=== PATIENT | male | born 1985 | race Caucasian/White ===

== ENCOUNTER 2020-07-16 06:45 | Day surgery (SDC) | payer OTHER ==
[2020-07-15 07:52] VITALS: BMI 32.9
--- NOTE | 2020-07-16 08:48 | HP ---
CHIEF COMPLAINT: Depression PCP: Kayode Alonso Primary Psychiatrist: Shaw Rojas HISTORY OF PRESENT ILLNESS: 35 year-old with a PMH significant for depression and anxiety, appears today for his first ECT treatment. Recent Events: * none PAST MEDICAL HISTORY: Depression Anxiety PAST SURGICAL HISTORY: None Social History: lives in [place], , lives with parents and his daughter; u nemployed; attends job training Smoking: never Alcohol: no Drugs: no Family history: mother 72 a&w; father 68 A&w Allergies No Known Allergies Allergy (Verified 07/16/20 07:50) HOME MEDICATIONS: Home Medications Medication Instructions Recorded Gabapentin [Neurontin] 100 mg PO DAILY 07/15/20 Hydroxyzine HCl 50 mg PO HS 07/15/20 Risperidone [Risperdal] 0.5 mg PO DAILY 07/15/20 REVIEW OF SYSTEMS CONSTITUTIONAL: Absent: fever, chills, diaphoresis, generalized weakness, malaise, loss of appetite, weight change HEENT: Absent: rhinorrhea, nasal congestion, throat pain, throat swelling, difficulty swallowing, mouth swelling, ear pain, eye pain, visual changes CARDIOVASCULAR: Absent: chest pain, syncope, palpitations, irregular heart rate, lightheadedness, peripheral edema RESPIRATORY: Absent: cough, shortness of breath, dyspnea with exertion, orthopnea, wheezing, stridor, hemoptysis GASTROINTESTINAL: Absent: abdominal pain, abdominal distension, nausea, vomiting, diarrhea, constipation, melena, hematochezia GENITOURINARY: Absent: dysuria, frequency, urgency, hesitancy, hematuria, flank pain, genital pain MUSCULOSKELETAL: Absent: myalgia, arthralgia, joint swelling, back pain, neck pain SKIN: Absent: rash, itching, pallor HEMATOLOGIC/IMMUNOLOGIC: Absent: easy bleeding, easy bruising, lymphadenopathy, frequent infections ENDOCRINE: Absent: unexplained weight gain, unexplained weight loss, heat intolerance, cold intolerance NEUROLOGIC: Absent: headache, focal weakness or paresthesias, dizziness, unsteady gait, seizure, mental status changes, bladder or bowel incontinence PHYSICAL EXAMINATION Vital Signs - 24 hr 07/16/20 07:51 Temperature 98.6 F Pulse Rate 80 Respiratory 16 Rate Blood Pressure 122/77 O2 Sat by Pulse 96 Oximetry (%) GENERAL: Awake, alert, and fully oriented, in no acute distress. HEAD: Normal with no signs of trauma. EYES: Pupils equal, round and reactive to light, sclera anicteric, conjunctiva clear. LUNGS: Breath sounds equal, clear to auscultation bilaterally. No wheezes, and no crackles. No accessory muscle use. HEART: Regular rate and rhythm, normal S1 and S2 ABDOMEN: Soft, nontender, not distended MUSCULOSKELETAL: Normal range of motion at all joints. No bony deformities or tenderness. No CVA tenderness. UPPER EXTREMITIES: 2+ pulses, warm, well-perfused. No cyanosis. No clubbing. No peripheral edema. LOWER EXTREMITIES: 2+ pulses, warm, well-perfused. No calf tenderness. No peripheral edema. NEUROLOGICAL: Cranial nerves II-XII intact. Normal speech. ASSESSMENT/PLAN: 35 year-old male with a PMH significant for depression and anxiety, appears today for ECT treatment. Cardiac --no cardiac history --Revised Cardiac Risk Index for Pre-Operative Risk: 0 points, 0.4% risk of major cardiac event Pulmonary --no pulmonary history Neurological --no neurological or neurosurgical history; no history of trauma Anesthesia --no reported problems with anesthesia ECT is a low risk procedure. The relative benefits of the planned procedure outweigh the relative risks for this patient at this time. Visit type - Emergency Visit Emergency Visit: No - New Patient This patient is new to me today: Yes Date on this admission: 07/16/20 - Critical Care Critical Care patient: No
[2020-07-16] MEDS ORDERED: KETAMINE HCL 500 MG/10 ML VIAL ONE (09:27)
[2020-07-16] MEDS ORDERED: KETOROLAC TROMETHAMINE 30 MG/1 ML VIAL ONE (09:34)
[2020-07-16] MEDS ORDERED: ONDANSETRON 4 MG/2 ML VIAL ONE (09:34)
[2020-07-16] MEDS ORDERED: SUCCINYLCHOLINE CHLORIDE 200 MG/10 ML SYRINGE ONE (09:34)
[2020-07-16] MEDS ORDERED: ACETAMINOPHEN 325 MG TABLET (FP) ONE (11:12)
[2020-07-16 11:18] VITALS: TEMP 98.2
[2020-07-16 11:20] VITALS: BP 130/80; PULSE 77
== END 2020-07-16 11:30 | disposition home or self-care (01) ==
LOC: FECT 06:45
PROVIDERS: ATTEND Psychiatry & Neurology Psychiatry
PROC: GZB4ZZZ Other Electroconvulsive Therapy (ICD-10-PCS; principal; 2020-07-16 08:30)
DX: F32.9 Major depressive disorder, single episode, unspecified (principal)
CPT/HCPCS: 90870; 94760; U0003

== ENCOUNTER 2020-07-20 06:34 | Day surgery (SDC) | payer OTHER ==
[2020-07-15 08:36] VITALS: BMI 32.9
[2020-07-20] MEDS ORDERED: KETAMINE HCL 500 MG/10 ML VIAL ONE (08:44)
[2020-07-20 09:55] VITALS: TEMP 98.5
[2020-07-20 11:04] VITALS: BP 121/75; PULSE 80
== END 2020-07-20 10:35 | disposition home or self-care (01) ==
LOC: FECT 06:34
PROVIDERS: ATTEND Psychiatry & Neurology Psychiatry
PROC: GZB4ZZZ Other Electroconvulsive Therapy (ICD-10-PCS; principal; 2020-07-20 08:30)
DX: F33.2 Major depressive disorder, recurrent severe without psychotic features (principal)
CPT/HCPCS: 90870; 94760; U0003

== ENCOUNTER 2020-07-23 06:39 | Day surgery (SDC) | payer OTHER ==
[2020-07-15 08:41] VITALS: BMI 32.9
[2020-07-23] MEDS ORDERED: PROPOFOL 20 ML ONE (06:52)
[2020-07-23] MEDS ORDERED: SUCCINYLCHOLINE CHLORIDE 200 MG/10 ML SYRINGE ONE (06:53)
[2020-07-23] MEDS ORDERED: ONDANSETRON 4 MG/2 ML VIAL IVPUSH PRN (07:06)
[2020-07-23] MEDS ORDERED: ACETAMINOPHEN 1000 MG/100 ML VIAL (NON FORMULARY) IVPB ONE (07:08)
[2020-07-23] MEDS ORDERED: LACTATED RINGERS SOLUTION 1,000 ML IV SCH (07:15)
[2020-07-23] MEDS ORDERED: KETAMINE HCL 500 MG/10 ML VIAL ONE (07:48)
[2020-07-23] MEDS ORDERED: ACETAMINOPHEN INJECTION 100 ML IVPB ONE (08:30)
[2020-07-23 09:10] VITALS: TEMP 99.4
[2020-07-23 09:51] VITALS: BP 118/72; PULSE 82
== END 2020-07-23 09:54 | disposition home or self-care (01) ==
LOC: FECT 06:39
PROVIDERS: ATTEND Psychiatry & Neurology Psychiatry
PROC: GZB4ZZZ Other Electroconvulsive Therapy (ICD-10-PCS; principal; 2020-07-23 08:00)
DX: F32.9 Major depressive disorder, single episode, unspecified (principal)
CPT/HCPCS: 90870; 94760; J0131

== ENCOUNTER 2020-07-24 06:12 | Day surgery (SDC) | payer OTHER ==
[2020-07-23 16:19] VITALS: BMI 32.9
[2020-07-24] MEDS ORDERED: KETOROLAC TROMETHAMINE 30 MG/1 ML VIAL ONE (07:46)
[2020-07-24] MEDS ORDERED: ONDANSETRON 4 MG/2 ML VIAL ONE (07:46)
[2020-07-24] MEDS ORDERED: SUCCINYLCHOLINE CHLORIDE 200 MG/10 ML SYRINGE ONE (07:46)
[2020-07-24] MEDS ORDERED: KETAMINE HCL 500 MG/10 ML VIAL ONE (07:46)
[2020-07-24] MEDS ORDERED: DEXAMETHASONE SOD PHOSPHATE 4 MG/1 ML VIAL ONE (07:46)
[2020-07-24] MEDS ORDERED: PROPOFOL 20 ML ONE (07:46)
[2020-07-24] MEDS ORDERED: ACETAMINOPHEN INJECTION 100 ML IVPB ONE (08:04)
[2020-07-24] MEDS ORDERED: ACETAMINOPHEN 1000 MG/100 ML VIAL (NON FORMULARY) IVPB ONE ×2 (08:04→11:20)
[2020-07-24 08:39] VITALS: TEMP 98.1
[2020-07-24 09:14] VITALS: BP 122/73; PULSE 74
[2020-07-24] MEDS ORDERED: PROMETHAZINE HCL 25 MG/1 ML VIAL IVPUSH PRN (11:20)
[2020-07-24] MEDS ORDERED: ONDANSETRON 4 MG/2 ML VIAL IVPUSH PRN (11:20)
== END 2020-07-24 09:20 | disposition home or self-care (01) ==
LOC: FECT 06:12
PROVIDERS: ATTEND Psychiatry & Neurology Psychiatry
PROC: GZB4ZZZ Other Electroconvulsive Therapy (ICD-10-PCS; principal; 2020-07-24 09:00)
DX: F32.9 Major depressive disorder, single episode, unspecified (principal)
CPT/HCPCS: 90870; 94760; J0131; U0003

== ENCOUNTER 2020-07-27 06:21 | Day surgery (SDC) | payer OTHER ==
[2020-07-16 08:07] VITALS: BMI 32.9
[2020-07-27] MEDS ORDERED: KETAMINE HCL 500 MG/10 ML VIAL ONE (07:51)
[2020-07-27] MEDS ORDERED: oxyCODONE HCL 5 MG TABLET PO PRN (08:14)
[2020-07-27] MEDS ORDERED: ACETAMINOPHEN 1000 MG/100 ML VIAL (NON FORMULARY) IVPB ONE (08:14)
[2020-07-27] MEDS ORDERED: ONDANSETRON 4 MG/2 ML VIAL IVPUSH PRN (08:14)
[2020-07-27] MEDS ORDERED: LACTATED RINGERS SOLUTION 1,000 ML IV SCH (08:15)
[2020-07-27] MEDS ORDERED: ACETAMINOPHEN INJECTION 100 ML IVPB ONE (08:18)
[2020-07-27] MEDS ORDERED: SUCCINYLCHOLINE CHLORIDE 200 MG/10 ML SYRINGE ONE (08:21)
[2020-07-27] MEDS ORDERED: ONDANSETRON 4 MG/2 ML VIAL ONE ×2 (08:28→08:38)
[2020-07-27] MEDS ORDERED: PROPOFOL 20 ML ONE (08:38)
[2020-07-27] MEDS ORDERED: DEXAMETHASONE SOD PHOSPHATE 4 MG/1 ML VIAL ONE (08:38)
[2020-07-27] MEDS ORDERED: KETOROLAC TROMETHAMINE 30 MG/1 ML VIAL ONE (08:38)
[2020-07-27 09:21] VITALS: TEMP 98
[2020-07-27 10:25] VITALS: BP 110/62; PULSE 74
== END 2020-07-27 10:10 | disposition home or self-care (01) ==
LOC: FECT 06:21
PROVIDERS: ATTEND Psychiatry & Neurology Psychiatry
PROC: GZB4ZZZ Other Electroconvulsive Therapy (ICD-10-PCS; principal; 2020-07-27 07:00)
DX: F33.2 Major depressive disorder, recurrent severe without psychotic features (principal)
CPT/HCPCS: 90870; 94760; J0131; U0003

== ENCOUNTER 2020-07-30 07:57 | Day surgery (SDC) | payer MEDICARE, OTHER ==
[2020-07-21 09:02] VITALS: BMI 32.9
[2020-07-30] MEDS ORDERED: KETAMINE HCL 500 MG/10 ML VIAL ONE (11:22)
[2020-07-30 12:34] VITALS: TEMP 98.5
[2020-07-30 14:01] VITALS: BP 120/84; PULSE 89
== END 2020-07-30 12:50 | disposition home or self-care (01) ==
LOC: FECT 07:57
PROVIDERS: ATTEND Psychiatry & Neurology Psychiatry
PROC: GZB4ZZZ Other Electroconvulsive Therapy (ICD-10-PCS; principal; 2020-07-30 07:30)
DX: F32.9 Major depressive disorder, single episode, unspecified (principal)
CPT/HCPCS: 90870; 94760

== ENCOUNTER 2020-07-31 09:29 | Day surgery (SDC) | payer MEDICARE, OTHER ==
[2020-07-28 08:42] VITALS: BMI 32.9
[2020-07-31] MEDS ORDERED: KETAMINE HCL 500 MG/10 ML VIAL ONE (09:57)
[2020-07-31] MEDS ORDERED: ONDANSETRON 4 MG/2 ML VIAL ONE (10:02)
[2020-07-31] MEDS ORDERED: KETOROLAC TROMETHAMINE 30 MG/1 ML VIAL ONE (10:02)
[2020-07-31] MEDS ORDERED: PROPOFOL 20 ML ONE (10:02)
[2020-07-31 11:04] VITALS: TEMP 98.4
[2020-07-31 11:29] VITALS: BP 131/88; PULSE 86
== END 2020-07-31 11:20 | disposition home or self-care (01) ==
LOC: FECT 09:29
PROVIDERS: ATTEND Psychiatry & Neurology Psychiatry
PROC: GZB4ZZZ Other Electroconvulsive Therapy (ICD-10-PCS; principal; 2020-07-31 10:00)
DX: F32.9 Major depressive disorder, single episode, unspecified (principal)
CPT/HCPCS: 90870; 94760; U0003

== ENCOUNTER 2020-08-04 08:08 | Day surgery (SDC) | payer MEDICARE, OTHER ==
[2020-08-04 09:03] VITALS: BMI 32.9
[2020-08-04] MEDS ORDERED: KETAMINE HCL 500 MG/10 ML VIAL ONE (10:26)
[2020-08-04] MEDS ORDERED: PROPOFOL 20 ML ONE ×2 (10:29→10:46)
[2020-08-04] MEDS ORDERED: SUCCINYLCHOLINE CHLORIDE 200 MG/10 ML SYRINGE ONE ×2 (10:30→10:50)
[2020-08-04 11:33] VITALS: TEMP 98.5
[2020-08-04 11:45] VITALS: BP 123/82; PULSE 83
== END 2020-08-04 11:50 | disposition home or self-care (01) ==
LOC: FECT 08:08
PROVIDERS: ATTEND Psychiatry & Neurology Psychiatry
PROC: GZB4ZZZ Other Electroconvulsive Therapy (ICD-10-PCS; principal; 2020-08-04 11:30)
DX: F32.9 Major depressive disorder, single episode, unspecified (principal)
CPT/HCPCS: 90870; 94760; U0003

== ENCOUNTER 2020-08-06 05:41 | Day surgery (SDC) | payer MEDICARE, OTHER ==
[2020-07-28 11:25] VITALS: BMI 32.9
[2020-08-06] MEDS ORDERED: KETAMINE HCL 500 MG/10 ML VIAL ONE (07:02)
[2020-08-06] MEDS ORDERED: PROPOFOL 20 ML ONE (07:08)
[2020-08-06] MEDS ORDERED: SUCCINYLCHOLINE CHLORIDE 200 MG/10 ML SYRINGE ONE (07:08)
[2020-08-06 08:00] VITALS: TEMP 97.8
[2020-08-06 08:23] VITALS: BP 126/78; PULSE 76
== END 2020-08-06 09:45 | disposition home or self-care (01) ==
LOC: FECT 05:41
PROVIDERS: ATTEND Psychiatry & Neurology Psychiatry
PROC: GZB4ZZZ Other Electroconvulsive Therapy (ICD-10-PCS; principal; 2020-08-06 09:30)
DX: F32.9 Major depressive disorder, single episode, unspecified (principal)
CPT/HCPCS: 90870; 94760; U0003

== ENCOUNTER 2020-08-10 09:29 | Day surgery (SDC) | payer OTHER ==
[2020-07-30 08:55] VITALS: BMI 32.9
[2020-08-10 10:11] VITALS: TEMP 98.1
--- OUTSIDE RECORDS SUMMARY | 2020-08-10 10:21 | XMS ---
:1985 Author Organization [facility] Care Team Providers Name Role Phone FRANCISCO CASTELLON MD Unavailable Unavailable KAYODESELIN SHANNON Unavailable KAYODESELIN SHANNON Unavailable KAYODESELIN SHANNON Unavailable MORALES Unavailable Unavailable NURSE Unavailable Unavailable BONNAH Unavailable Unavailable RIZQALLA Unavailable Unavailable Dahlia JIMENES Unavailable Unavailable Bel Clay MS PAMansiC Unavailable Unavailable Bel Clay MS, PAMansiC Unavailable Unavailable MO FSIH MD Unavailable Unavailable IVANNA DEL CID MD Unavailable Unavailable Re-disclosure Warning The records that you are about to access may contain information from federally- assisted alcohol or drug abuse programs. If such information is present, then the following federally mandated warning applies: This information has been disclosed to you from records protected by federal confidentiality rules (42 CFR part 2). The federal rules prohibit you from making any further disclosure of this information unless further disclosure is expressly permitted by the written consent of the person to whom it pertains or as otherwise permitted by 42 CFR part 2. A general authorization for the release of medical or other information is NOT sufficient for this purpose. The Federal rules restrict any use of the information to criminally investigate or prosecute any alcohol or drug abuse patient.The records that you are about to access may contain highly sensitive health information, the redisclosure of which is protected by Article 27-F of the [facility] Public Health law. If you continue you may haveaccess to information: Regarding HIV / AIDS; Provided by facilities licensed or operated by the [facility] Office of Mental Health; or Provided by the [facility] Office for People With Developmental Disabilities. If such information is present, then the following [facility] mandated warning applies: This information has been disclosed to you from confidential records which are protected by state law. State law prohibits you from making any further disclosure of this information without the specific written consent of the person to whom it pertains, or as otherwise permitted by law. Any unauthorized further disclosure in violation of state law may result in a fine or half-way sentence or both. A general authorization for the release of medical or other information is NOT sufficient authorization for further disclosure. Allergies and Adverse Reactions Type Description Substance Reaction Status Data Source(s ) Drug allergy No Known Allergies No Known [facility] Allergies No Known Allergies No Known Allergies No Known eCW1 ([facility]) No Known Allergies No Known Allergies No Known eCW1 ([facility]) No Known Allergies No Known Allergies No Known eCW1 ([facility]) No Known Allergies No Known Allergies No Known eCW1 ([facility]) No Known Allergies No Known Allergies No Known eCW1 ([facility]) No Known Allergies No Known Allergies No Known eCW2 ([facility]) No Information No Information No Information eC W2 ([facility]) No Known Allergies No Known Allergies No Known eCW1 ([facility]) No Information No Information No Information eC W2 ([facility]) No Known Allergies No Known Allergies No Known eCW1 ([facility]) No Information No Information No Information eC W1 ([facility]) No Information No Information No Information eC W1 ([facility]) No Information No Information No Information eC W1 ([facility]) No Information No Information No Information eC W1 ([facility]) No Known Allergies No Known Allergies No Known eCW1 ([facility]) No Information No Information No Information eC W1 ([facility]) No Information No Information No Information eC W1 ([facility]) No Information No Information No Information eC W1 ([facility]) No Information No Information No Information eC W1 ([facility]) No Known Allergies No Known Allergies No Known eCW1 ([facility]) No Information No Information No Information eC W2 ([facility]) No Information No Information No Information eC W2 ([facility]) No Information No Information No Information eC W2 ([facility]) No Information No Information No Information eC W2 ([facility]) No Information No Information No Information eC W2 ([facility]) No Known Allergies No Known Allergies No Known eCW2 ([facility]) No Information No Information No Information eC W2 ([facility]) No Information No Information No Information eC W2 ([facility]) No Information No Information No Information eC W2 ([facility]) No Information No Information No Information eC W2 ([facility]) No Information No Information No Information eC W2 ([facility]) No Known Allergies No Known Allergies No Known eCW2 ([facility]) No Information No Information No Allergy eCW2 ( [facility] ) Available No Information No Information No Allergy eCW2 ( [facility] ) Available No Information No Information No Allergy eCW2 ( [facility] ) Available No Information No Information No Allergy eCW2 ( [facility] ) Available No Information No Information No Allergy eCW2 ( [facility] ) Available No Information No Information No Allergy eCW2 ( [facility] ) Available No Known Allergies No Known Allergies No known eCW2 ([facility]) (situation) No Information No Information No Allergy eCW2 ( [facility] ) Available No Information No Information No Allergy eCW2 ( [facility] ) Available No Information No Information No Allergy eCW2 ( [facility] ) Available No Information No Information No Allergy eCW2 ( [facility] ) Available No Information No Information No Allergy eCW2 ( [facility] ) Available No Information No Information No Allergy eCW2 ( [facility] ) Available No Known Allergies No Known Allergies No known eCW2 ([facility]) (situation) No Information No Information No Allergy eCW2 ( [facility] ) Available No Information No Information No Allergy eCW2 ( [facility] ) Available No Information No Information No Allergy eCW2 ( [facility] ) Available No Known Allergies No Known Allergies No known eCW2 ([facility]) (situation) No Information No Information No Allergy eCW2 ( [facility] ) Available No Known Allergies No Known Allergies No known eCW2 ([facility]) (situation) No Information No Information No Allergy eCW2 ( [facility] ) Available No Information No Information No Allergy eCW2 ( [facility] ) Available No Information No Information No Allergy eCW2 ( [facility] ) Available No Information No Information No Allergy eCW2 ( [facility] ) Available No Information No Information No Allergy eCW2 ( [facility] ) Available No Information No Information No Allergy eCW2 ( [facility] ) Available No Information No Information No Allergy eCW2 ( [facility] ) Available No Known Allergies No Known Allergies No known eCW2 ([facility]) (situation) No Information No Information No Allergy eCW2 ( [facility] ) Available No Information No Information No Allergy eCW2 ( [facility] ) Available No Information No Information No Allergy eCW2 ( [facility] ) Available Encounters Encounter Providers Location Date Indications Data Source(s ) (WEB) Digestive Disease 07/29/2020 eCW1 ([facility], 12:00:00 AM Dise ase [facility]) (WEB) Digestive Disease 07/29/2020 eCW1 ([facility], 12:00:00 AM Dise ase Associates [facility]) (WEB) Digestive Disease 07/29/2020 eCW1 ([facility], 12[facility]00:00 AM Dise [facility]se Associates [facility] EDT [facility]) (WEB) Digestive Disease 07/29/2020 eCW1 ([facility], 12:00:00 AM [facility] EDT [facility]) (WEB) Digestive Disease 07/29/2020 eCW1 ([facility], 12:00:00 AM [facility]se [facility] EDT [facility]) Outpatient 06/22/2020 Bon Sarah [facility]yers 10:00:00 [facility] - 06/22/2020 10:40:49 AM EDT Patient discharged. Outpatient 06/19/2020 09:00:00 [facility] - Good AM EDT [facility] Outpatient 06/19/2020 12:00:00 [facility] - Good AM EDT - 06/19/2020 [facility] 11:59:[address] [facility] 06/18/2020 12:00 :00 eCW2 ([facility] EDT Center) Outpatient 06/08/2020 10:45:00 [facility] Outpatient Digestive Disease 05/15/2020 12:00:00 eCW1 ([facility], AM EDT Disea se Associates [facility]) Outpatient 05/11/2020 03:39:27 [facility] ED [facility] Outpatient 05/08/2020 08:56:37 [facility] ED [facility] Outpatient 05/05/2020 10:09:22 [facility] Digestive Disease Digestive Disease 04/30/2020 12:00:00 eCW1 ([facility]) Outpatient 04/27/2020 09:45:00 [facility] AM [facility] - [facility] 10:50:28 AM EDT Patient discharged. Digestive Disease Digestive Disease 04/16/2020 12:00:00 eCW1 ([facility]) Digestive Disease Digestive Disease 04/15/2020 12:00:00 eCW1 ([facility]) Digestive Disease Digestive Disease 04/06/2020 12:00:00 eCW1 ([facility]) [facility] Disease Dig[facility] Disease 03/25/2020 12:00:00 eCW1 ([facility]) Digestive Disease Digestive Disease 03/24/2020 12:00:00 eCW1 ([facility]) Digestive Disease Digestive Disease 03/18/2020 12:00:00 eCW1 ([facility]) Digestive Disease Digestive Disease 03/17/2020 12:00:00 eCW1 ([facility]) Digestive Disease Digestive Disease 02/27/2020 12:00:00 eCW1 ([facility]) Digestive Disease Digestive Disease 02/07/2020 12:00:00 eCW1 ([facility]) Digestive Disease Digestive Disease 01/28/2020 12:00:00 eCW1 ([facility] AM EST [facility]) Digestive Disease Digestive Disease 01/23/2020 12:00:00 eCW1 ([facility] AM EST [facility]) Digestive Disease Digestive Disease 01/23/2020 12:00:00 eCW1 ([facility] AM EST [facility]) Outpatient 01/09/2020 11:20:59 Casey [facility] Digestive Disease Digestive Disease 01/08/2020 12:00:00 eCW1 ([facility] EST [facility]) Outpatient 01/07/2020 02:00:00 [facility] 12/31/2019 01:00:00 Casey [facility] Digestive Disease Digestive Disease 12/31/2019 12:00:00 eCW1 ([facility] EST [facility]) Digestive Disease Digestive Disease 12/24/2019 12:00:00 eCW1 ([facility] EST [facility]) Digestive Disease Digestive Disease 12/08/2019 12:00:00 eCW1 ([facility] EST [facility] 12/01/2019 12:00 :00 eCW2 ([facility]) Digestive Disease Digestive Disease 11/29/2019 12:00:00 eCW1 ([facility] EST [facility]) Digestive Disease Digestive Disease 11/28/2019 12:00:00 eCW1 ([facility] AM EST [facility]) Outpatient 11/26/2019 12:57:23 Casey S [facility]corajani [facility] Digestive Disease Digestive Disease 10/31/2019 12:00:00 eCW1 ([facility] AM EST [facility]) Digestive Disease Digestive Disease 10/31/2019 12:00:00 eCW1 ([facility] AM EST [facility] 10/23/2019 12:00 :00 eCW2 ([facility]) [facility] 10/16/2019 12:00 :00 eCW2 ([facility]) [facility] 10/16/2019 12:00 :00 eCW2 ([facility]) Outpatient 10/14/2019 01:00:00 Casey Fowler e[facility]ajani [facility] EST - 10/14/2019 [facility] 01:[facility]:51 PM EST Patient discharged. Outpatient 10/10/2019 04:00:00 PM [facility] EST [facility] 10/09/2019 12:00:00 AM eCW2 ([facility] EST Center) Outpatient 10/08/2019 09:48:59 AM [facility] Outpatient 10/08/2019 09:40:24 AM [facility] EST [facility] Outpatient 09/30/2019 09:45:00 AM [facility] EST - 09/30/2019 [facility] 11:14:07 AM EST Patient discharged. Patient Navigation [facility] 09/24/2019 12:00:00 AM eCW2 ([facility] EDT Center) (TEL) [facility] 09/01/2019 12:00:00 AM eCW2 ([facility] EDT Center) Outpatient 08/14/2019 01:15:00 PM [facility] [employer] [facility] Outpatient 08/07/2019 03:00:00 PM [facility] [employer] [facility] [facility] Outpatient 08/02/2019 05:00:03 PM [facility] n [facility] 07/31/2019 12:00:00 AM eCW2 ([facility] EDT Center) Outpatient 07/25/2019 01:30:00 PM [facility] EDT - 07/25/2019 [facility] 01:50:19 PM EDT Patient discharged. [facility] 07/24/2019 eCW2 ([facility] 12:00:00 AM EDT [facility]) Outpatient 07/22/2019 [facility] 10:15:00 AM EDT [facility] 07/17/2019 eCW2 ([facility] 12:00:00 AM EDT [facility]) Outpatient 07/15/2019 [facility] 09:30:00 AM [facility] 07/11/2019 [facility] 04:00:[address] [employer] [address] [employer] [facility] 07/10/2019 eCW2 ([facility] 12:00:00 AM EDT [facility]) Outpatient Attender: TAMMY MEJIAS-RD 07/09/2019 LT TESTIS Draper KAYODE 08:44:00 PM EDT [facility] BAAttender: - 07/10/2019 AU[facility] 03:20:00 PM EDT RIZQALLAAdmitte r: TAMMY KAYODE BAEZConsultant: TAMMY KAYODE BAEZConsultant: SONAM MARINHConsultmarc t: CHERYL MORALESConsultant : SHLOMO FISH MDConsultant: BURT DEL CID MDConsultant: FRANCISCO CASTELLON MDConsultant: Nikki Clay MS, PA-CConsultant: CONSULT NURSEConsultant : GRETTA JIMENES LT TESTIS ORCHITIS Patient discharged. [facility] 07/03/2019 12:00:00 [facility] 07/03/2019 12:00:00 eCW2 ([facility]) Outpatient 06/27/2019 05:10:00 BS[facility] - Good PM EDT [facility] Emergency 06/27/2019 04:21:47 Groin Pain [facility] - Good PM EDT - 06/27/2019 [facility] 08:35:00 PM EDT Groin Pain Patient discharged. Emergency 06/27/2019 12:00:00 [facility] - Community AM EDT [facility] 06/26/2019 12:00:00 eCW2 ([facility] EDT Center) [facility] 06/19/2019 12:00:00 eCW2 ([facility] EDT Center) [facility] 06/12/2019 12:00:00 eCW2 ([facility] EDT Center) Patient Navigation [facility] 06/11/2019 12:00:00 eCW2 ([facility] EDT Center) [facility] 06/05/2019 12:00:00 eCW2 ([facility] AM EDT Center) [facility] 05/29/2019 12:00:00 eCW2 ([facility] AM EDT Center) [facility] 05/22/2019 12:00:00 eCW2 ([facility] AM EDT Center) [facility] 05/15/2019 12:00:00 eCW2 ([facility] AM EDT Center) [facility] 05/08/2019 12:00:00 eCW2 ([facility] AM EDT Center) [facility] 05/01/2019 12:00:00 eCW2 ([facility] AM EDT Center) [facility] 04/24/2019 12:00:00 eCW2 ([facility] AM EDT Center) [facility] 04/17/2019 12:00:00 eCW2 ([facility] AM EDT Center) [facility] 04/10/2019 12:00:00 eCW2 ([facility] AM EDT Center) Outpatient 04/05/2019 09:10:00 NEXTG EN ([place] AM EDT Healthcare) Outpatient 04/04/2019 09:53:00 NEXTG EN ([place] AM EDT Healthcare) [facility] 04/03/2019 12:00:00 eCW2 ([facility] AM EDT Center) [facility] 04/01/2019 12:00:00 eCW2 ([facility] AM EDT Center) [facility] 03/27/2019 12:00:00 eCW2 ([facility] AM EDT Center) [facility] 03/20/2019 12:00:00 eCW2 ([facility] AM EDT Center) [facility] 03/13/2019 12:00:00 eCW2 ([facility] AM EDT Center) Outpatient 03/06/2019 01:11:09 Casey Verma PM EDT [facility] 03/06/2019 12:00:00 eCW2 ([facility] AM EDT Center) [facility] 02/27/2019 12:00:00 eCW2 ([facility] Center AM EDT Center) [facility] 02/20/2019 12:00:00 eCW2 ([facility] Center AM EDT Center) [facility] 02/20/2019 12:00:00 eCW2 ([facility] Center AM EDT Center) [facility] 02/17/2019 12:00:00 eCW2 ([facility] AM EDT Center) [facility] 02/13/2019 12:00:00 eCW2 ([facility] [place] AM EDT Center) [facility] 02/13/2019 12:00:00 eCW2 ([facility] AM EDT Center) [facility] 02/06/2019 12:00:00 eCW2 ([facility] [place] AM EDT Center) [facility] 01/30/2019 12:00:00 eCW2 ([facility] AM EST Center) Outpatient 01/29/2019 12:00:00 Casey Verma AM EST [facility] 01/23/2019 12:00:00 eCW2 ([facility] AM EST Center) [facility] 01/16/2019 12:00:00 eCW2 ([facility] AM EST Center) [facility] 01/07/2019 12:00:00 eCW2 ([facility] AM EST Center) [facility] 01/02/2019 12:00:00 eCW2 ([facility] AM EST Center) [facility] 12/17/2018 12:00:00 eCW2 ([facility] AM EST Center) [facility] 12/13/2018 12:00:00 eCW2 ([facility] AM EST Center) [facility] 12/11/2018 12:00:00 eCW2 ([facility] AM EST Center) [facility] 11/26/2018 12:00:00 eCW2 ([facility] AM EST Center) Outpatient 11/23/2018 12:00:00 Award s (Mental Health AM EST - 06/27/2019 [facility] 12:00:00 AM EDT [facility]) Patient discharged. [facility] 11/22/2018 12:00:00 eCW2 ([facility] AM EST Center) [facility] 11/21/2018 12:00:00 eCW2 ([facility] AM EST Center) [facility] 11/21/2018 12:00:00 eCW2 ([facility] AM EST Center) [facility] 11/21/2018 12:00:00 eCW2 ([facility] AM EST Center) [facility] 11/20/2018 12:00:00 eCW2 ([facility] AM EST Center) [facility] 11/19/2018 12:00:00 eCW2 ([facility] AM EST Center) [facility] 11/19/2018 12:00:00 eCW2 ([facility] Center AM EST Center) [facility] 11/16/2018 12:00:00 eCW2 ([facility] AM EST Center) [facility] 11/15/2018 12:00:00 eCW2 ([facility] AM EST Center) [facility] 11/14/2018 12:00:00 eCW2 ([facility] AM EST Center) [facility] 11/12/2018 12:00:00 eCW2 ([facility] AM EST Center) [facility] 11/12/2018 12:00:00 eCW2 ([facility] Center AM EST Center) [facility] 11/07/2018 12:00:00 [facility] 11/06/2018 12:00:00 eCW2 ([facility] AM EST Center) [facility] 11/06/2018 12:00:00 eCW2 ([facility] AM EST Center) [facility] 11/05/2018 12:00:00 eCW2 ([facility] AM EST Center) [facility] 11/04/2018 12:00:00 eCW2 ([facility] AM EST Center) [facility] 11/04/2018 12:00:00 eCW2 ([facility] AM EST Center) [facility] 11/02/2018 12:00:00 eCW2 ([facility] AM EST Center) [facility] 11/01/2018 12:00:00 eCW2 ([facility] AM EST Center) [facility] 10/31/2018 12:00:00 eCW2 ([facility] AM EST Center) [facility] 10/31/2018 12:00:00 eCW2 ([facility] AM EST Center) [facility] 10/30/2018 12:00:00 eCW2 ([facility] AM EST Center) [facility] 10/29/2018 12:00:00 eCW2 ([facility] AM EST Center) [facility] 10/29/2018 12:00:00 eCW2 ([facility] AM EST Center) [facility] 10/25/2018 12:00:00 eCW2 ([facility] AM EST Center) [facility] 10/24/2018 12:00:00 eCW2 ([facility] AM EST Center) [facility] 10/24/2018 12:00:00 eCW2 ([facility] AM EST Center) [facility] 10/24/2018 12:00:00 eCW2 ([facility] AM EST Center) [facility] 10/24/2018 12:00:00 eCW2 ([facility] AM EST Center) [facility] 10/15/2018 12:00:00 eCW2 ([facility] AM EST Center) [facility] 10/10/2018 12:00:00 eCW2 ([facility] AM EST Center) [facility] 10/09/2018 12:00:00 eCW2 ([facility] AM EST Center) [facility] 10/01/2018 12:00:00 eCW2 ([facility] AM EST Center) [facility] 09/26/2018 12:00:00 eCW2 ([facility] AM EDT Center) [facility] 09/26/2018 12:00:00 eCW2 ([facility] AM EDT Center) [facility] 09/23/2018 12:00:00 eCW2 ([facility] AM EDT Center) [facility] 09/19/2018 12:00:00 eCW2 ([facility] AM EDT Center) [facility] 09/16/2018 12:00:00 eCW2 ([facility] AM EDT Center) [facility] 09/12/2018 12:00:00 eCW2 ([facility] AM EDT Center) [facility] 09/09/2018 12:00:00 eCW2 ([facility] AM EDT Center) [facility] 09/04/2018 12:00:00 eCW2 ([facility] AM EDT Center) [facility] 09/04/2018 12:00:00 eCW2 ([facility] AM EDT Center) [facility] 09/02/2018 12:00:00 eCW2 ([facility] AM EDT Center) [facility] 07/19/2018 12:00:00 eCW2 ([facility] AM EDT Center) [facility] 07/04/2018 12:00:00 eCW2 ([facility] AM EDT Center) [facility] 06/21/2018 12:00:00 eCW2 ([facility] AM EDT Center) [facility] 06/14/2018 12:00:00 eCW2 ([facility] AM EDT Center) [facility] 06/13/2018 12:00:00 eCW2 ([facility] AM EDT Center) [facility] 06/13/2018 12:00:00 eCW2 ([facility] AM EDT Center) [facility] 06/12/2018 12:00:00 eCW2 ([facility] AM EDT Center) [facility] 06/10/2018 12:00:00 eCW2 ([facility] AM EDT Center) [facility] 06/10/2018 12:00:00 eCW2 ([facility] AM EDT Center) [facility] 06/07/2018 12:00:00 eCW2 ([facility] AM EDT Center) [facility] 05/31/2018 12:00:00 eCW2 ([facility] AM EDT Center) [facility] 05/08/2018 12:00:00 eCW2 ([facility] AM EDT Center) [facility] 04/29/2018 12:00:00 eCW2 ([facility] AM EDT Center) [facility] 03/27/2018 12:00:00 eCW2 ([facility] AM EDT Center) [facility] 03/21/2018 12:00:00 eCW2 ([facility] AM EDT Center) [facility] 03/21/2018 12:00:00 eCW2 ([facility] AM EDT Center) [facility] 03/19/2018 12:00:00 eCW2 ([facility] AM EDT Center) [facility] 03/16/2018 12:00:00 eCW2 ([facility] AM EDT Center) [facility] 03/15/2018 12:00:00 eCW2 ([facility] AM EDT Center) [facility] 03/08/2018 12:00:00 eCW2 ([facility] AM EDT Center) Outpatient 03/06/2018 12:00:00 Award s (Mental Health AM EDT - 06/21/2019 [facility] 12:00:00 AM EDT [facility]) Patient discharged. [facility] 02/26/2018 12:00:00 AM eCW2 ([facility] EDT Center) [facility] 02/14/2018 12:00:00 AM eCW2 ([facility] EDT Center) [facility] 02/01/2018 12:00:00 AM eCW2 ([facility] EST Center) [facility] 01/17/2018 12:00:00 AM eCW2 ([facility] EST Center) [facility] 01/17/2018 12:00:00 AM eCW2 ([facility] EST Center) [facility] 12/28/2017 12:00:00 AM eCW2 ([facility] EST Center) [facility] 12/28/2017 12:00:00 AM eCW2 ([facility] EST Center) [facility] 12/22/2017 12:00:00 AM eCW2 ([facility] EST Center) [facility] 12/15/2017 12:00:00 AM eCW2 ([facility] EST Center) [facility] 12/05/2017 12:00:00 AM eCW2 ([facility] EST Center) [facility] 12/05/2017 12:00:00 AM eCW2 ([facility] EST Center) [facility] 12/05/2017 12:00:00 AM eCW2 ([facility] EST Center) [facility] 11/30/2017 12:00:00 AM eCW2 ([facility] EST Center) [facility] 11/29/2017 12:00:00 AM eCW2 ([facility] EST Center) [facility] 11/27/2017 12:00:00 AM eCW2 ([facility]) [facility] 11/16/2017 12:00:00 AM eCW2 ([facility] EST Center) [facility] 11/16/2017 12:00:00 AM eCW2 ([facility] EST Center) [facility] 11/16/2017 12:00:00 AM eCW2 ([facility]) [facility] 11/09/2017 12:00:00 AM eCW2 ([facility] EST Center) [facility] 11/09/2017 12:00:00 AM eCW2 ([facility] EST Center) [facility] 11/09/2017 12:00:00 AM eCW2 ([facility] EST Center) [facility] 11/01/2017 12:00:00 AM eCW2 ([facility]) [facility] 11/01/2017 12:00:00 AM eCW2 ([facility] EST Center) [facility] 10/30/2017 12:00:00 AM eCW2 ([facility] EST Center) [facility] 09/20/2017 12:00:00 AM eCW2 ([facility] EDT Center) [facility] 08/21/2017 12:00:00 AM eCW2 ([facility] EDT Center) [facility] 08/15/2017 12:00:00 AM eCW2 ([facility] EDT Center) [facility] 08/09/2017 12:00:00 AM eCW2 ([facility] EDT Center) [facility] 07/07/2017 12:00:00 AM eCW2 ([facility] EDT Center) [facility] 04/02/2017 12:00:00 AM eCW2 ([facility] EDT Center) [facility] 03/31/2017 12:00:00 AM eCW2 ([facility] EDT Center) [facility] 03/21/2017 12:00:00 AM eCW2 ([facility] EDT Center) [facility] 03/20/2017 12:00:00 AM eCW2 ([facility] EDT Center) Immunizations Vaccine Date Status Description Data Source(s) This CVX code 09/05/2019 completed Influenza 09/05/2019, [facility] allows reporting 12:00:00 AM EDT Vaccine 08/31/2015 [facility]i of a vaccination [facility] when formulation [employer] is unknown (for example, when recording a Influenza vaccination when noted on a vaccination card) MMR 07/01/2019 completed MMR 07/01/2019, [facility] 12:00:00 AM EDT 06/03/2019 [facility] MMR 06/03/2019 completed MMR 07/01/2019, [facility] 12:00:00 AM EDT 06/03/2019 [facility] Tdap 05/22/2019 completed Tdap 05/22/2019 [facility] 12:[facility] AM [facility] New in 2011. IIV4 08/09/2017 02:02:00 PM EDT completed eCW2 ([facility]) PPD (Intradermal) 03/31/2017 11:38:00 AM EDT completed eCW2 ([facility]) IIV3. This 08/22/2016 completed Influenza 08/22/2016 [facility] vaccine code is 12:00:00 AM EDT Vaccine PF Luci one of two which Hea lt replace CVX 15, [employer] influenza, split virus. This CVX code 08/31/2015 completed Influenza 09/05/2019, [facility] allows reporting 12:00:00 AM EDT Vaccine 08/31/2015 Luci of a vaccination [facility] when formulation [employer] is unknown (for example, when recording a Influenza vaccination when noted on a vaccination card) No Known Immunizations completed eCW2 ([facility]) No Known Immunizations completed eCW2 ([facility]) No Known Immunizations completed eCW1 ([facility]) No Known Immunizations completed eCW1 ([facility]) No Known Immunizations completed eCW1 ([facility]) No Known Immunizations completed eCW1 ([facility]) No Known Immunizations completed eCW1 ([facility]) No Known Immunizations completed eCW1 ([facility]) No Known Immunizations completed eCW1 ([facility]) No Known Immunizations completed eCW1 ([facility]) No Known Immunizations completed eCW1 ([facility]) No Known Immunizations completed eCW1 ([facility]) No Known Immunizations completed eCW1 ([facility]) No Known Immunizations completed eCW2 ([facility]) No Known Immunizations completed eCW2 ([facility]) No Known Immunizations completed eCW2 ([facility]) No Known Immunizations completed eCW2 ([facility]) No Known Immunizations completed eCW2 ([facility]) No Known Immunizations completed eCW2 ([facility]) No Known Immunizations completed eCW2 ([facility]) No Known Immunizations completed eCW2 ([facility]) No Known Immunizations completed eCW2 ([facility]) No Known Immunizations completed eCW2 ([facility]) No Known Immunizations completed eCW2 ([facility]) No Known Immunizations completed eCW2 ([facility]) No Known Immunizations completed eCW2 ([facility]) No Known Immunizations completed eCW2 ([facility]) No Known Immunizations completed eCW2 ([facility]) No Known Immunizations completed eCW2 ([facility]) No Known Immunizations completed eCW2 ([facility]) No Known Immunizations completed eCW2 ([facility]) No Known Immunizations completed eCW2 ([facility]) No Known Immunizations completed eCW2 ([facility]) No Known Immunizations completed eCW2 ([facility]) No Known Immunizations completed eCW2 ([facility]) No Known Immunizations completed eCW2 ([facility]) No Known Immunizations completed eCW2 ([facility]) No Known Immunizations completed eCW2 ([facility]) No Known Immunizations completed eCW2 ([facility]) No Known Immunizations completed eCW2 ([facility]) No Known Immunizations completed eCW2 ([facility]) No Known Immunizations completed eCW2 ([facility]) No Known Immunizations completed eCW2 ([facility]) No Known Immunizations completed eCW2 ([facility]) No Known Immunizations completed eCW2 ([facility]) No Known Immunizations completed eCW2 ([facility]) No Known Immunizations completed eCW2 ([facility]) No Known Immunizations completed eCW2 ([facility]) No Known Immunizations completed eCW2 ([facility]) No Known Immunizations completed eCW2 ([facility]) No Known Immunizations completed eCW2 ([facility]) No Known Immunizations completed eCW2 ([facility]) No Known Immunizations completed eCW2 ([facility]) No Known Immunizations completed eCW2 ([facility]) No Known Immunizations completed eCW2 ([facility]) No Known Immunizations completed eCW2 ([facility]) Medications Medication Brand Start Product Dose Route Administrative Pharmacy michelle Indications Reaction Description Data Name Date Form Instructions Instructions Source(s) Levothyroxi Levoth 06/26/ suspend Levoth yroxin eCW2 ne Sodium yroxin 2019 ed e Sodium 75 ( [facility] 0.075 MG e 12:00: [facility] Oral Tablet Sodium 00 AM Cente r) Levothyroxi 75 [facility] EDT ne Sodium 75 [facility] PARoxetine 91615- 04/14/ active [facility] (PAXIL) 10 775-30 [facility] mg tablet 12:00: [facility]i 00 AM Health EDT [facility] doxycycline doxycy 09/29/ aborted B on hyclate 100 arteaga 2019 [facility] MG Oral (VIBRA 12:00: Luci Tablet -TABS) 00 AM Health doxycycline 100 mg EDT [facility] (VIBRA-TABS tablet ) 100 mg tablet Naproxen naprox 07/24/ active [facility] 375 MG Oral en 2018 [facility] Tablet (NAPRO 12:00: Luci naproxen SYN) AM Health (NAPROSYN) 375 mg EDT [facility] 375 mg tablet tablet Lidocaine lidoca 07/17/ aborted [facility] 40 MG/ML ine [facility] Topical (XYLOC 12:00: Luci Cream JEFFERSON) AM Health lidocaine 4 % EDT [facility] (XYLOCAINE) topica 4 % topical l cream cream Fluvoxamine fluvox 07/01/ active Cesario n Maleate 100 aMINE 2019 [facility] MG Oral (LUVOX 12:00: Luci Tablet ) 100 AM Health fluvoxaMINE mg EDT System [facility] (LUVOX) 100 tablet mg tablet Hydrocortis hydroc 05/29/ active Cesario n one 25 ortiso 2018 [facility] MG/ML ne 12:00: Luci Topical (HYTON AM Health Cream E) 2.5 EDT [facility] hydrocortis % one topica (HYTONE) l 2.5 % cream topical cream Clindamycin clinda 05/29/ aborted B on 10 MG/ML mycin 2018 [facility] Topical (CLEOC 12:00: Luci Lotion IN T) 00 AM Health clindamycin 1 % EDT System [facility] (CLEOCIN T) lotion 1 % lotion Lidocaine lidoca 04/25/ Topica aborted Apply to [facility] 40 MG/ML ine 2018 l affected [facility] Topical (XYLOC 12:00: area two (2) Luci Cream JEFFERSON) 00 AM times daily Healt h lidocaine 4 % EDT as needed [facility] (XYLOCAINE) topica for Pain. 4 % topical l cream cream Polyethylen Polyet 11/16/ suspend as dir ected eCW2 e Glycol hylene 2017 ed ([facility] 3350 - Glycol 12:00: Health 3350 - 00 AM Center) EST Polyethylen Polyet 11/16/ active as dire cted eCW2 e Glycol hylene 2017 ([facility] 3350 - Glycol 12:00: Health 3350 - 00 AM Center) EST benztropine benztr 04/24/ aborted B on mesylate opine 2018 [facility] 0.5 MG Oral (COGEN 12:00: [facility] it[facility] Tablet TIN) 00 AM Health benztropine 0.5 mg EDT [facility] (COGENTIN) tablet 0.5 mg tablet Escitalopra escita 04/24/ aborted B on m 20 MG lopram 2017 [facility] Oral Tablet oxalat 12:00: [facility] ity escitalopra e 00 AM Health m oxalate (LEXAP EDT [facility] (LEXAPRO) RO) 20 20 mg mg tablet tablet Clonazepam clonaz 04/18/ active [facility] 0.5 MG Oral ePAM 2017 [facility] Tablet (KLONO 12:00: Luci clonazePAM PIN) 00 AM Health (KLONOPIN) 0.5 mg EDT [facility] 0.5 mg tablet tablet Hydrocortis hydroc 07/05/ aborted Apply to [facility] one 25 ortiso 2017 anus twice a [facility] MG/ML ne 12:00: day as Luci Topical (ANUSO 00 AM needed Health Cream L-HC) EDT [facility] hydrocortis 2.5 % one rectal (ANUSOL-HC) cream 2.5 % rectal cream Amoxicillin amoxic 01/15/ aborted B on 250 MG Oral illin 2016 [facility] Capsule (AMOXI 12:00: Luci amoxicillin L) 250 00 AM Healt h (AMOXIL) mg EST [facility] 250 mg capsul capsule e lamotrigine lamoTR 01/04/ aborted B on 100 MG Oral Igine 2015 [facility] Tablet (LAMIC 12:00: Luci lamoTRIgine NICOLA) 00 AM Health (LAMICTAL) 100 mg EST [facility] 100 mg tablet tablet Risperidone risper 01/04/ active Cesario n 2 MG Oral iDONE 2015 [facility] Tablet (RISPE 12:00: Luci risperiDONE RDAL) 00 AM Health (RISPERDAL) 2 mg EST System I nc 2 mg tablet tablet Unknown complet eCW2 Medications ed ([facility]) Unknown complet eCW2 Medications ed ([facility]) Unknown complet eCW2 Medications ed ([facility]) Unknown complet eCW2 Medications ed ([facility]) Unknown complet eCW2 Medications ed ([facility]) Klonopin UNK active Klonopin eCW1 ([facility]) Paxil UNK active eCW1 ([facility]) Sertraline Zoloft active 2 tabs eCW 2 100 MG Oral 100 MG ([facility] Tablet [facility] [Zoloft] [place]) Zoloft 100 MG Unknown complet eCW2 Medications ed ([facility]) Clonazepam Klonop active 1 tablet e CW2 0.5 MG Oral in 0.5 ([facility] Tablet MG [facility] [Klonopin] [place]) Klonopin 0.5 MG Paxil UNK active Paxil eCW1 ([facility]) Zinc UNK active eCW2 ([facility]) Vitamin D UNK active eCW2 ([facility]) Unknown complet eCW2 Medications ed ([facility]) linaclotide Linzes 1.0 active Linzess 2 90 eCW1 0.29 MG s 290 {caps MCG (Digestive Oral MCG ule} [facility] [address] ) MCG Unknown complet eCW2 Medications ed ([facility]) Unknown complet eCW1 Medications ed ([facility]) Risperidone Risper active 1 1/2 tab let eCW2 1 MG Oral axel 1 ([facility] Tablet MG [facility] [Risperdal] [place]) Risperdal 1 MG Unknown complet eCW2 Medications ed ([facility]) Klonopin UNK active Klonopin eCW1 ([facility]) Luvox CR UNK suspend Luvox CR eCW1 ed ([facility]) Unknown complet eCW2 Medications ed ([facility]) Unknown complet eCW1 Medications ed ([facility]) Risperdal UNK active eCW1 ([facility]) Paxil UNK active eCW1 ([facility]) Escitalopra Lexapr active 1 tablet eCW2 m 5 MG Oral o 5 MG ([facility] Tablet [facility] [Lexapro] [place]) Lexapro 5 MG Hydroxyzine HydrOX 1.0 active HydrOXYzi ne eCW2 Hydrochlori Yzine {tabl HCl 25 MG ( [facility] de 25 MG HCl 25 et_as Health Oral Tablet MG _need Center) HydrOXYzine ed} HCl 25 MG Clonazepam Klonop active 1 tablet e CW2 0.5 MG Oral in 0.5 ([facility] Tablet MG Health [Klonopin] [place]) Klonopin 0.5 MG Sertraline Zoloft active 2 tabs eCW 2 100 MG Oral 100 MG ([facility] [Zoloft] [place]) Zoloft 100 MG Luvox CR UNK suspend Luvox CR eCW1 ed ([facility]) Risperdal UNK active Risperdal eCW 1 ([facility]) Risperdal UNK active Risperdal eCW 1 ([facility]) Risperidone Risper 1.0 active Risperdal eCW2 0.5 MG Oral axel {tabl 0.5 MG ([facility] Tablet 0.5 MG et} Health [Risperdal] [place]) Risperdal 0.5 MG Clonazepam Klonop active 1 tablet e CW2 1 MG Oral in 1 0.5 mg ([facility] Tablet MG tablet Health [Klonopin] [place]) Klonopin 1 MG Unknown complet eCW2 Medications ed ([facility]) linaclotide Linzes active 1 capsule eCW1 0.29 MG s 290 (Digestive Oral MCG [facility] [address] ) MCG Unknown complet eCW2 Medications ed ([facility]) Clonazepam Klonop active Klonopin 1 eCW2 1 MG Oral in 1 MG ([facility] Tablet MG [facility] [Klonopin] [place]) Klonopin 1 MG linaclotide Linzes 1.0 active Linzess 2 90 eCW1 0.29 MG s 290 {caps MCG (Digestive Oral MCG ule} [facility] [[facility]] [facility] [address] ) MCG Risperidone Risper active 1 tablet eCW2 2 MG Oral axel 2 ([facility] Tablet MG [facility] [Risperdal] [place]) Risperdal 2 MG Zinc UNK active eCW2 ([facility]) Vitamin B12 UNK active eCW2 ([facility]) Unknown complet eCW2 Medications ed ([facility]) Unknown complet eCW1 Medications ed ([facility]) Unknown complet eCW1 Medications ed ([facility]) Klonopin UNK active eCW1 ([facility]) Paxil UNK active Paxil eCW1 ([facility]) Vitamin B12 UNK active eCW2 ([facility]) Luvox CR UNK suspend Luvox CR eCW1 ed ([facility]) Unknown complet eCW2 Medications ed ([facility]) Unknown complet eCW2 Medications ed ([facility]) Vitamin B12 UNK active eCW2 ([facility]) Clonazepam Klonop active 1 tablet e CW2 0.5 MG Oral in 0.5 (Refua h Tablet MG [facility] [Klonopin] [place]) Klonopin 0.5 MG Multivitami UNK active eCW2 n ([facility]) Risperdal UNK active Risperdal eCW 1 ([facility]) Luvox CR UNK suspend Luvox CR eCW1 ed ([facility]) Clonazepam Klonop active 1 tablet e CW2 0.5 MG Oral in 0.5 (Refua h Tablet MG [facility] [Klonopin] [place]) Klonopin 0.5 MG Klonopin UNK active Klonopin eCW1 ([facility]) Unknown complet eCW1 Medications ed ([facility]) Unknown complet eCW2 Medications ed ([facility]) Unknown complet eCW2 Medications ed ([facility]) Luvox CR UNK suspend eCW1 ed ([facility]) Unknown complet eCW2 Medications ed ([facility]) Sertraline Zoloft active 2 tabs eCW 2 100 MG Oral 100 MG ([facility] [Zoloft] [place]) Zoloft 100 MG Zinc UNK active Zinc eCW2 ([facility]) Risperdal UNK active Risperdal eCW 1 ([facility]) Unknown complet eCW2 Medications ed ([facility]) linaclotide Linzes 1.0 active Linzess 2 90 eCW1 0.29 MG s 290 {caps MCG (Digestive Oral MCG ule} [facility] [[facility]zess] [address] ) MCG Multivitami UNK active eCW2 n ([facility]) linaclotide Linzes 1.0 active Linzess 2 90 eCW1 0.29 MG s 290 {caps MCG (Digestive Oral MCG ule} [facility] [Linzes] [address] ) MCG Clonazepam Klonop active 1 tablet e CW2 0.5 MG Oral in 0.5 ([facility] Tablet MG [facility] [Klonopin] [place]) Klonopin 0.5 MG Vitamin D UNK active eCW2 ([facility]) Luvox CR UNK active eCW1 ([facility]) Risperdal UNK active eCW1 ([facility]) Unknown complet eCW2 Medications ed ([facility]) Vitamin D UNK active eCW2 ([facility]) Zinc UNK active eCW2 ([facility]) Sertraline Zoloft active 2 tabs eCW 2 100 MG Oral 100 MG ([facility]Zoloft[facility] [place]) Zoloft 100 MG Multivitami UNK active eCW2 n ([facility]) Multivitami UNK active eCW2 n ([facility]) Unknown complet eCW2 Medications ed ([facility]) Unknown complet eCW2 Medications ed ([facility]) Vitamin B12 UNK active eCW2 ([facility]) Sertraline Zoloft active 2 tabs eCW 2 100 MG Oral 100 MG ([facility]ft[facility]) Zoloft 100 MG Unknown complet eCW2 Medications ed ([facility]) Klonopin UNK active Klonopin eCW1 ([facility]) Luvox CR UNK suspend Luvox CR eCW1 ed ([facility]) Unknown complet eCW2 Medications ed ([facility]) Unknown complet eCW2 Medications ed ([facility]) Unknown complet eCW2 Medications ed ([facility]) Unknown complet eCW2 Medications ed ([facility]) Risperdal UNK active Risperdal eCW 1 ([facility]) Risperidone Risper active 1 tablet eCW2 2 MG Oral axel 2 ([facility] [Risperdal] [place]) Risperdal 2 MG Multivitami UNK active eCW2 n ([facility]) Risperidone Risper active 1 1/2 tab let eCW2 1 MG Oral axel 1 ([facility] [Risperdal] [place]) Risperdal 1 MG Clonazepam Klonop active 1 tablet e CW2 0.5 MG Oral in 0.5 (Refua h Tablet MG [facility] [Klonopin] [place]) Klonopin 0.5 MG Unknown complet eCW2 Medications ed ([facility]) Vitamin D UNK active eCW2 ([facility]) Vitamin D UNK active eCW2 ([facility]) Unknown complet eCW1 Medications ed ([facility]) Unknown complet eCW2 Medications ed ([facility]) Escitalopra Lexapr active 1 tablet eCW2 m 5 MG Oral o 5 MG ([facility] [Lexapro] [place]) Lexapro 5 MG Multivitami UNK active eCW2 n ([facility]) Risperidone Risper active 1 1/2 tab let eCW2 2 MG Oral axel 2 ([facility] [Risperdal] [place]) Risperdal 2 MG Paxil UNK active Paxil eCW1 ([facility]) Vitamin D UNK active Vitamin D eCW 2 ([facility]) Unknown complet eCW2 Medications ed ([facility]) Unknown complet eCW2 Medications ed ([facility]) Unknown complet eCW2 Medications ed ([facility]) linaclotide Linzes 1.0 active Linzess 2 90 eCW1 0.29 MG s 290 {caps MCG (Digestive Oral MCG ule} [facility] [[facility]] [address] ) MCG Unknown complet eCW2 Medications ed ([facility]) Klonopin UNK active eCW1 ([facility]) linaclotide Linzes active 1 capsule eCW1 0.29 MG s 290 (Digestive Oral MCG [facility] [[facility]] [address] ) MCG Paxil UNK active Paxil eCW1 ([facility]) Klonopin UNK active Klonopin eCW1 ([facility]) Risperdal UNK active Risperdal eCW 1 ([facility]) Luvox CR UNK suspend Luvox CR eCW1 ed ([facility]) Zinc UNK active eCW2 ([facility]) Linzess UNK active eCW1 ([facility]) No Known complet eCW2 Medications ed ([facility]) Unknown complet eCW1 Medications ed ([facility]) Vitamin D UNK active eCW2 ([facility]) Luvox CR UNK suspend eCW1 ed ([facility]) Unknown complet eCW2 Medications ed ([facility]) Unknown complet eCW2 Medications ed ([facility]) Unknown complet eCW2 Medications ed ([facility]) gabapentin gabape 100 Oral active Take 100 m g Bon 100 MG Oral ntin mg by mouth [facility] (NEURO nightly. Charit y gabapentin NTIN) Health (NEURONTIN) 100 mg [employer] 100 mg capsul capsule e Paxil UNK active Paxil eCW1 ([facility]) Zinc UNK active eCW2 ([facility]) Klonopin UNK active Klonopin eCW1 ([facility]) Multivitami UNK active eCW2 n ([facility]) Risperidone Risper active 1 1/2 tab let eCW2 1 MG Oral axel 1 ([facility] [Risperdal] [place]) Risperdal 1 MG Unknown complet eCW1 Medications ed ([facility]) Risperidone Risper active 1 1/2 tab let eCW2 1 MG Oral axel 1 ([facility] [Risperdal] [place]) Risperdal 1 MG Vitamin D UNK active eCW2 ([facility]) Zinc UNK active eCW2 ([facility]) Multivitami UNK active Multivitami n eCW2 n ([facility]) Unknown complet eCW2 Medications ed ([facility]) linaclotide Linzes 1.0 active Linzess 2 90 eCW1 0.29 MG s 290 {caps MCG (Digestive Oral MCG ule} [facility]] of [address] ) MCG Vitamin B12 UNK active eCW2 ([facility]) Vitamin B12 UNK active eCW2 ([facility]) Vitamin B12 UNK active eCW2 ([facility]) Paxil UNK active Paxil eCW1 ([facility]) Zinc UNK active eCW2 ([facility]) Klonopin UNK active eCW1 ([facility]) Risperdal UNK active eCW1 ([facility]) Insurance Providers Payer name Policy type Policy ID Covered Covered democrat's Policy P nikki / Coverage democrat ID relationship to Wills Inf ormation type wills [facility] [id number] HEALTH NON CAP [facility] [id number] CARE [place] [id number] [place]ARE [place] [id number] CARE [place] [id number] CARE [place] [id number] CARE [place] [id number] CARE Medicaid MEDICAID [place] CARE [id number] Patient is [id number] [facility] [id number] [place] [id number] [place] [employer] [id number] MEDICAID [facility] [id number] MEDICAID Medicaid Problems, Conditions, and Diagnoses Code Display Name Description Problem Type Effective Data Dates Source(s) E03.9 Acquired Acquired Problem 06/26/2020 eCW2 ([facility] hypothyroidism hypothyroidism 12:00:00 AM [facility] EDT Center) E29.1 [id number] Hypogonadism in male Problem 06/23/2020 eCW2 ([facility] 12:00:00 AM [facility] EDT Center) E29.1 [id number] Hypotestosteronemia in Problem 06/22/2020 eCW2 ([facility] male 12:00:00 AM [facility] EDT Center) R10.31 [id number] Right lower quadrant Problem 04/16/2020 eCW1 abdominal pain 12:00:00 AM ([facility]T [facility]) R10.31 [id number] Right lower quadrant Problem 04/16/2020 eCW1 abdominal pain 12:00:00 AM ([facility]estiv e EDT [facility]) R10.32 038220643 Left lower quadrant Problem 03/18/2020 eCW1 pain 12:00:00 AM (Digestive EDT Disease [facility]) R10.32 223565248 Left lower quadrant Problem 03/18/2020 eCW1 pain 12:00:00 AM ([facility]ive EDT [facility]) R14.0 [id number] Abdominal bloating Problem 01/23/2020 eCW1 12:00:00 AM ([facility] EST [facility]) R14.0 726314663 Abdominal bloating Problem 01/23/2020 eCW1 12:00:00 AM ([facility]ive EST [facility]) K59.09 [id number] Chronic constipation Problem 11/28/2019 eCW1 12:00:00 AM ([facility] EST [facility]) K58.1 050543160 Irritable bowel Problem 11/28/2019 eCW1 syndrome with 12:00:00 AM (Digestive constipation EST Disease [facility]) K59.09 [id number] Chronic constipation Problem 11/28/2019 eCW1 12:00:00 AM ([facility]estive EST [facility]) K58.1 [id number] Irritable bowel Problem 11/28/2019 eCW1 syndrome with 12:00:00 AM (Digestive constipation EST [facility]) 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 03/06/2019 [facility] disability disability 12:00:00 AM [facility] F60.9 [id number] Personality disorder, Problem 09/02/2018 eCW 2 ([facility] unspecified 12:00:00 AM Health EDT Center) F60.9 [id number] Personality disorder, Problem 09/02/2018 eCW 2 ([facility] unspecified 12:00:00 AM Health EDT Center) F60.9 Personality Personality disorder, Problem 09/02/2018 eC W2 ([facility] disorder, unspecified 12:00:00 AM Health unspecified EDT Center) E66.9 [id number] Obesity (BMI Problem 06/13/2018 eCW2 (R efuah 30.0-34.9) 12:00:00 AM Health EDT Center) E66.9 [id number] Obesity (BMI Problem 06/13/2018 eCW2 (R efuah 30.0-34.9) 12:00:00 AM Health EDT Center) E66.9 Obesity (BMI Obesity (BMI Problem 06/13/2018 eCW2 (Refu [facility] 30.0-34.9) 30.0-34.9) 12:00:00 AM Health EDT Center) E66.9 Obesity (BMI Obesity (BMI Problem 06/13/2018 eCW2 (Refu [facility] 30.0-34.9) 30.0-34.9) 12:00:00 AM Health EDT Center) E66.9 Obesity (BMI Obesity (BMI Problem 06/13/2018 eCW2 (Refu ah 30.0-34.9) 30.0-34.9) 12:00:00 AM Health EDT Center) F41.8 [id number] Depression with Problem 11/27/2017 eCW2 (Ref ua anxiety 12:00:00 AM Health EST Center) E67.8 35639645 Hypervitaminosis Problem 11/27/2017 eCW2 (Re fu[facility] 12:00:00 AM Health EST Center) F41.8 684998630 Depression with Problem 11/27/2017 eCW2 ([facility] anxiety 12:00:00 AM Health EST Center) E67.8 73557241 Hypervitaminosis Problem 11/27/2017 eCW2 ([facility] 12:00:00 AM Health EST Center) E67.8 Hypervitaminosis Hypervitaminosis Problem 11/27/2017 eC W2 ([facility] 12:00:00 AM Health EST Center) F41.8 Depression with Depression with Problem 11/27/2017 eCW2 ([facility] anxiety anxiety 12:00:00 AM Health EST Center) E67.8 Hypervitaminosis Hypervitaminosis Problem 11/27/2017 eC W2 ([facility] 12:00:00 AM Health EST Center) F41.8 Depression with Depression with Problem 11/27/2017 eCW2 ([facility] anxiety anxiety 12:00:00 AM Health EST Center) E67.8 Hypervitaminosis Hypervitaminosis Problem 11/27/2017 eC W2 ([facility] 12:00:00 AM Health EST Center) F41.8 Depression with Depression with Problem 11/27/2017 eCW2 ([facility] anxiety anxiety 12:00:00 AM Health EST Center) F41.9 [id number] Anxiety Problem 11/16/2017 eCW2 ([facility] 12:00:00 AM Health EST Center) F41.9 72684632 Anxiety Problem 11/16/2017 eCW2 ([facility] 12:00:00 AM Health EST Center) F41.9 Anxiety Anxiety Problem 11/16/2017 eCW2 ([facility] 12:00:00 AM Health EST Center) F41.9 Anxiety Anxiety Problem 11/16/2017 eCW2 ([facility] 12:00:00 AM Health EST Center) F41.9 Anxiety Anxiety Problem 11/16/2017 eCW2 ([facility] 12:00:00 AM Health EST Center) F82 [id number] Motor skills disorder Problem 11/01/2017 eCW 2 ([facility] 12:00:00 AM Health EST Center) F82 [id number] Motor skills disorder Problem 11/01/2017 eCW 2 ([facility] 12:00:00 AM Health EST Center) F82 Motor skills Motor skills disorder Problem 11/01/2017 e CW2 ([facility] disorder 12:00:00 AM Health EST Center) F82 Motor skills Motor skills disorder Problem 11/01/2017 e CW2 ([facility] disorder 12:00:00 AM Health EST Center) F82 Motor skills Motor skills disorder Problem 11/01/2017 e CW2 ([facility] disorder 12:00:00 AM Health EST Center) K21.9 [id number] Gastroesophageal Problem 09/20/2017 eCW2 ([facility] reflux disease, 12:00:00 AM Health esophagitis presence EDT Cent er) not specified N40.1 [id number] Benign prostatic Problem 09/20/2017 eCW2 ([facility] hyperplasia with lower 12:00:00 AM H ealth urinary tract symptoms EDT Ce nter) N40.1 710557716 Benign prostatic Problem 09/20/2017 eCW2 ([facility] hyperplasia with lower 12:00:00 AM H ealth urinary tract symptoms EDT Ce nter) K21.9 247267376 Gastroesophageal Problem 09/20/2017 eCW2 ([facility] reflux disease, 12:00:00 AM Health esophagitis presence EDT Cent er) not specified N40.1 Benign prostatic Benign prostatic Problem 09/20/2017 eC W2 ([facility] hyperplasia with hyperplasia with lower 12:00:0 0 AM Health lower urinary tract urinary tract symptoms EDT Center) symptoms K21.9 Gastroesophageal Gastroesophageal Problem 09/20/2017 eC W2 ([facility] reflux disease, reflux disease, 12:00:00 AM Hea lth esophagitis esophagitis presence EDT [facility] ter) presence not not specified specified K21.9 Gastroesophageal Gastroesophageal Problem 09/20/2017 eC W2 ([facility] reflux disease, reflux disease, 12:00:00 AM Hea lth esophagitis esophagitis presence EDT [facility]) presence not not specified specified N40.1 Benign prostatic Benign prostatic Problem 09/20/2017 eC W2 ([facility] hyperplasia with hyperplasia with lower 12:00:0 0 AM Health lower urinary tract urinary tract symptoms EDT Center) symptoms K21.9 Gastroesophageal Gastroesophageal Problem 09/20/2017 eC W2 ([facility] reflux disease, reflux disease, 12:00:00 AM Hea lth esophagitis esophagitis presence EDT [facility]) presence not not specified specified N40.1 Benign prostatic Benign prostatic Problem 09/20/2017 eC W2 ([facility] hyperplasia with hyperplasia with lower 12:00:0 0 AM Health lower urinary tract urinary tract symptoms EDT Center) symptoms E55.9 [id number] Vitamin D deficiency Problem 08/09/2017 eCW2 ([facility] 12:00:00 AM Health EDT Center) E55.9 30597094 Vitamin D deficiency Problem 08/09/2017 eCW2 ([facility] 12:00:00 AM Health EDT Center) E55.9 Vitamin D Vitamin D deficiency Problem 08/09/2017 eCW2 ([facility] deficiency 12:00:00 AM Health EDT Center) E55.9 Vitamin D Vitamin D deficiency Problem 08/09/2017 eCW2 ([facility] deficiency 12:00:00 AM Health EDT Center) F32.9 65571519 Depressive disorder, Problem 05/25/2017 eCW2 ([facility] not elsewhere 12:00:00 AM Health classified EDT Center) F84.0 54249351 Autistic continuum Problem 05/25/2017 eCW2 ( [facility] 12:00:00 AM Health EDT Center) F32.9 04981591 Depressive disorder, Problem 05/25/2017 eCW2 ([facility] not elsewhere 12:00:00 AM Health classified EDT Center) F84.0 71572603 Autistic continuum Problem 05/25/2017 eCW2 ( [facility] 12:00:00 AM Health EDT Center) F32.9 Depressive Depressive disorder, Problem 05/25/2017 eCW2 ([facility] disorder, not not elsewhere 12:00:00 AM Health elsewhere classified EDT Center) classified F84.0 Autistic continuum Autistic continuum Problem 7 eCW2 ([facility] 12:00:00 AM Health EDT Center) F84.0 Autistic continuum Autistic continuum Problem 7 eCW2 ([facility] 12:00:00 AM Health EDT Center) F32.9 Depressive Depressive disorder, Problem 05/25/2017 eCW2 ([facility] disorder, not not elsewhere 12:00:00 AM Health elsewhere classified EDT Center) classified F39 [id number] Mood disorder Problem 03/20/2017 eCW2 ([facility] 12:00:00 AM Health EDT Center) K59.00 29483932 Constipation, Problem 03/20/2017 eCW2 ([facility] unspecified 12:00:00 AM Health constipation type EDT Center) F39 85165288 Mood disorder Problem 03/20/2017 eCW2 ([facility] 12:00:00 AM Health EDT Center) K59.00 22376389 Constipation, Problem 03/20/2017 eCW2 ([facility] unspecified 12:00:00 AM Health constipation type EDT Center) F39 Mood disorder Mood disorder Problem 03/20/2017 eCW2 ([facility] 12:00:00 AM Health EDT Center) K59.00 Constipation, Constipation, Problem 03/20/2017 eCW2 (Re [facility] unspecified unspecified 12:00:00 AM Health constipation type constipation type EDT Center) K59.00 Constipation, Constipation, Problem 03/20/2017 eCW2 ([facility] unspecified unspecified 12:00:00 AM Health constipation type constipation type EDT Center) F39 Mood disorder Mood disorder Problem 03/20/2017 eCW2 ([facility] 12:00:00 AM Health EDT Center) K59.00 Constipation, Constipation, Problem 03/20/2017 eCW2 ([facility] unspecified unspecified 12:00:00 AM Health constipation type constipation type EDT Center) F39 Mood disorder Mood disorder Problem 03/20/2017 eCW2 ([facility] 12:00:00 AM Health EDT Center) F90.0 Attention deficit Attention deficit [id number] 01/19/2016 [facility] hyperactivity hyperactivity disorder 12:00:00 A M Luci disorder (ADHD), (ADHD), [facility]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 F41.9 Anxiety Anxiety [id number] 01/19/2016 [facility] 12:00:00 AM [employer] Z01.818 Encounter for other Encounter for other Diagnosis 020 [facility] - Good preprocedural preprocedural 01:00:00 PM [facility] an examination examination [facility] N50.812 Left testicular Left testicular pain Diagnosis 04/27/2020 [facility] pain 10:44:16 AM [employer] N45.1 Epididymitis Epididymitis Diagnosis 10/14/2019 [place] 01:01:34 PM [employer] N50.819 Testicular pain, Testicular pain, Diagnosis 07/25/2019 [facility] unspecified unspecified 01:24:24 PM [employer] F41.8 Other specified OTHER SPECIFIED Diagnosis 07/11/2019 [place] anxiety disorders ANXIETY DISORDERS 03:50:00 PM Hospital EDT N50.819 Testicular pain, TESTICULAR PAIN, Diagnosis 07/11/2019 [place] unspecified UNSPECIFIED 03:50:00 PM Hospital EDT N45.2 Orchitis ORCHITIS Diagnosis 07/11/2019 [place] 03:50:00 PM Hospital EDT R10.32 Left lower quadrant LEFT LOWER QUADRANT Diagnosis 019 [place] pain PAIN 03:50:00 PM Hospital EDT N50.812 Left testicular Left testicular pain Diagnosis 06/27/2019 [facility] - Good [facility]21:47 [facility] Surgeries/Procedures Procedure Description Date Indications Data Source(s) AMB POC AMB POC Routine 06/22/2020 Restrictive 06/22/2020 Restri ctive Bon XRAY XRAY 10:53 AM EDT lung disease 10:53:00 AM melvina ng disease [facility] CHEST 2 CHEST 2 EDT [facility] [employer] [facility] Restrictive lung disease HC REF HC REF Routine 06/19/2020 06/19/2020 [facility] SARS-COV-2 HIGH SARS-COV-2 HIGH 1:05 PM EDT 01:0 5:00 PM EDT [facility] THROUGHPUT THROUGHPUT He [facility] I nc Eligible professional attests 04/16/2020 12:00:00 AM E DT eCW1 (Dig[facility]ive Disease to documenting in the medical [facility]) record they obtained, updated, or reviewed the patient's current medications CURRENT TOBACCO NON-USER CAD 04/16/2020 12:00:00 AM ED T eCW1 (Digestive Disease CAP COPD [facility]) DISCHRG MEDS RECONCILED 01/23/2020 12:00:00 AM EST eCW1 (Digestive Disease W/CURRENT MED LIST [facility]) Bmi is documented within 01/23/2020 12:00:00 AM EST eCW1 ([facility]ive Disease normal parameters and no [facility]) follow-up plan is required Normal blood pressure reading 01/23/2020 12:00:[address] eCW1 (Dig[facility]ive Disease documented, follow-up not [facility]) required URINLS DIP AMB POC Routine 10/14/2019 Orchalgia 10/14/2019 Left Bon STICK/TABLET URINALYSIS 1:16 PM EST Left 06:16:00 PM epididymitisOrchalgia [facility] REAGNT DIP STICK epididymitis EST C harity NON-AUTO MANUAL W/ Healt h [employer] Left epididymitis Orchalgia US SCROTUM/TESTICLES US SCROTUM/TESTICLES STAT 06/27/2019 06/27/2019 Bon 5:56 PM EDT 09:56:19 PM [facility] [employer] [facility] URINALYSIS W/ RFLX URINALYSIS W/ RFLX STAT 06/27/2019 06/27/2019 Bon MICROSCOPIC MICROSCOPIC 5:16 PM EDT 09:16:00 PM [facility] [employer] [facility] Interactive TKO CULTURE, URINE CULTURE, URINE STAT 06/27/2019 019 Bon 5:15 PM EDT 09:15:00 PM [facility] Interactive TKO Rapid Strep 09/26/2018 12:00:00 eCW2 ([facility]) Culture for Beta 09/26/2018 12:00:00 eCW2 ([facility]) No Known procedures No Known procedures e CW2 ([facility]) No Known procedures No Known procedures e CW2 ([facility]) No Known procedures No Known procedures e CW1 ([facility]) No Known procedures No Known procedures e CW1 (Dig[facility]ive Disease [facility]) No Known procedures No Known procedures e CW1 (Dig[facility]ive Disease [facility]) No Known procedures No Known procedures e CW1 [facility] No Known procedures No Known procedures e CW1 ([facility]) No Known procedures No Known procedures e CW1 ([facility]) No Known procedures No Known procedures e CW1 ([facility]) No Known procedures No Known procedures e CW1 ([facility] Disease [facility] [facility]) No Known procedures No Known procedures e CW1 ([facility]) No Known procedures No Known procedures e CW2 ([facility]) No Known procedures No Known procedures e CW2 ([facility]) No Known procedures No Known procedures e CW2 ([facility]) No Known procedures No Known procedures e CW2 ([facility]) No Known procedures No Known procedures e CW2 ([facility]) No Known procedures No Known procedures e CW2 ([facility]) No Known procedures No Known procedures e CW2 ([facility]) No Known procedures No Known procedures e CW2 ([facility]) No Known procedures No Known procedures e CW2 ([facility]) No Known procedures No Known procedures e CW2 ([facility]) No Known procedures No Known procedures e CW2 ([facility]) No Known procedures No Known procedures e CW2 ([facility]) No Known procedures No Known procedures e CW2 ([facility]) No Known procedures No Known procedures e CW2 ([facility]) No Known procedures No Known procedures e CW2 ([facility]) No Known procedures No Known procedures e CW2 ([facility]) No Known procedures No Known procedures e CW2 ([facility]) No Known procedures No Known procedures e CW2 ([facility]) No Known procedures No Known procedures e CW2 ([facility]) No Known procedures No Known procedures e CW2 ([facility]) No Known procedures No Known procedures e CW2 ([facility]) No Known procedures No Known procedures e CW2 ([facility]) No Known procedures No Known procedures e CW2 ([facility]) No Known procedures No Known procedures e CW2 ([facility]) No Known procedures No Known procedures e CW2 ([facility]) No Known procedures No Known procedures e CW2 ([facility]) No Known procedures No Known procedures e CW2 ([facility]) No Known procedures No Known procedures e CW2 ([facility]) No Known procedures No Known procedures e CW2 ([facility]) No Known procedures No Known procedures e CW2 ([facility]) No Known procedures No Known procedures e CW2 ([facility]) No Known procedures No Known procedures e CW2 ([facility]) No Known procedures No Known procedures e CW2 ([facility]) No Known procedures No Known procedures e CW2 ([facility]) No Known procedures No Known procedures e CW2 ([facility]) No Known procedures No Known procedures e CW2 ([facility]) No Known procedures No Known procedures e CW2 ([facility]) No Known procedures No Known procedures e CW2 ([facility]) No Known procedures No Known procedures e CW2 ([facility]) No Known procedures No Known procedures e CW2 ([facility]) No Known procedures No Known procedures e CW2 ([facility]) No Known procedures No Known procedures e CW2 ([facility]) Results ID Date Data Source [id number] 08/06/2020 08:45:00 AM EDT [facility] Name Value Range Interpretation Description Data Sup porting Code Source(s) Document(s ) SARS [facility] coronavirus 2 RNA This lab was ordered by [facility] and reported by [facility]. ID Date Data Source [id number] 08/04/2020 11:38:00 AM EDT [facility] Name Value Range Interpretation Description Data Sup porting Code Source(s) Document(s ) SARS [facility] coronavirus 2 RNA This lab was ordered by [facility] and reported by [facility]. ID Date Data Source [id number] 07/31/2020 11:20:00 AM EDT [facility] Name Value Range Interpretation Description Data Sup porting Code Source(s) Document(s ) SARS [facility] coronavirus 2 RNA This lab was ordered by [facility] and reported by [facility]. ID Date Data Source [id number] 07/27/2020 09:46:00 AM EDT [facility] Name Value Range Interpretation Description Data Sup porting Code Source(s) Document(s ) SARS [facility] coronavirus 2 RNA This lab was ordered by [facility] and reported by [facility]. ID Date Data Source [id number] 07/24/2020 08:50:00 AM EDT [facility] Name Value Range Interpretation Description Data Sup porting Code Source(s) Document(s ) SARS [facility] coronavirus 2 RNA This lab was ordered by [facility] and reported by [facility]. ID Date Data Source [id number] 07/20/2020 09:59:00 AM EDT [facility] Name Value Range Interpretation Description Data Sup porting Code Source(s) Document(s ) SARS [facility] coronavirus 2 RNA This lab was ordered by REUBENAN agudelo [facility] and reported by [facility]. ID Date Data Source [id number] 07/16/2020 10:40:00 AM EDT [facility] Name Value Range Interpretation Description Data Sup porting Code Source(s) Document(s ) SARS [facility] coronavirus 2 RNA [facility] and reported by [facility]. ID Date Data Source [id number] 07/13/2020 11:50:00 AM EDT [facility] Name Value Range Interpretation Description Data Sup porting Code Source(s) Document(s ) SARS [facility] coronavirus 2 RNA This lab was ordered by [facility] RADHA agudelo [facility] and reported by [facility]. ID Date Data Source [id number] 06/20/2020 01:50:13 PM EDT [facility] Name Value Range Interpretation Code Description Data Catalina rce(s) Supporting Document(s ) NOALONSOINC ANND [facility] Testing Performed by:[id number] [place], [place] [id number] REPORT FROM REFERENCE LAB ID Date Data Source [id number] 02/27/2020 12:00:00 AM EDT [facility] Name Value Range Interpretation Code Description Data Catalina rce(s) Supporting Document(s ) 2019-nCoV [facility] RNA XXX PANKAJ+probe- Imp This lab was ordered by [facility] and reported by [employer]. ID Date Data Source [id number] 07/10/2019 10:45:28 AM EDT [facility]: CT abdomen and pelvis with nonioni c IV contrast HISTORY: Left lower quadrant abdominal pain. REPORT: 5 mm axial image s were obtained with nonionic intravenous contrast on a16 Multi-detector CT scanne r. Oral contrast was not administered. Dose Reduction: One or more of the following dose reduction techniques wereused: automated exposure control, adjustment o f the mA and/or kV according to patient size, use of iterative reconstruction techniqu e.The liver, spleen, pancreas and adrenal glands are unremarkable. There aresmall bilateral renal cysts not characterized on this examination. Two areseen at the lef t lower pole measuring 14 mm and 5 mm respectively and one atthe right mid kid krista measuring 10 mm. There is no retroperitoneal, pelvicsidewall or groin lymphadenopathy. There is no ascites. There is no free air.There is no bowel dilatat ion or wall thickening. There is moderate fecalstasis in the sigmoid colon and everardo cending colon as well as in the ascendingcolon. There is no right lower quadrant inflammatory changes. The appendix is normal. Urinary bladder is submaxima lly distended. This shows subtlecircumferential wall thickening. T here is no evidence of diverticular disease.The visualized lung bases are cl ear. There is a small right pleural effusion. There is a small fat containing right in guinal hernia.IMPRESSION: There is fecal stasis and the descending colon and boy: . Noevidence of diverticular disease. Normal appendix.Circumferential wall thickening urinary bladder that is not maximally distendedand could be related to the non distention. Correlate clinically to excludeetiologies such as cystitis.Small right pleural effusion.Small bilateral renal cysts not characterized. Name Value Range Interpretation Code Description Data [facility] Supporting Document(s ) ID Date Data Source [id number] 07/10/2019 10:26:48 AM EDT [facility] EXAM: SCROTAL ULTRASOUND WITH DUPLEX DOP PLERHistory: Left scrotal pain. History of testicular torsion status post rvtbeou64 years ago.Findings: The right testicle measures 5.37 cm X 2.95 cm X 3.66 cm whi ch corresponds to30.4 cm3.The left testicle measures 5.42 cm X 2.20 cm X 3.21 cm whi ch corresponds to20.0 cm3.The left testis is markedly heterogeneous. There is no disc rete mass.There is symmetric color Doppler blood flow.There are normal arterial and venous waveforms.There is no testicular mass.There is a 1 cm right epididymal he ad cystImpression: Small, heterogeneous left testis, likely the statement of prior to rsion. Thelack of testicular enlargement or hydrocele is atypical for orchitis. Name Value Range Interpretation Code Description Data Catalina rce(s) Supporting Document(s ) ID Date Data Source [id number] 07/12/2019 05:11:00 AM EDT [facility] Name Value Range Interpretation Description Data Sup porting Code Source(s) Document(s ) Chlamydia Negative Negative [facility] trachomatis, [facility] PANKAJ Neisseria Negative Negative [facility] gonorrhoeae, [facility] PANKAJ ID Date Data Source [id number] 07/10/2019 12:35:00 AM EDT [facility] Name Value Range Interpretation Description Data Sup porting Code Source(s) Document(s ) U COLOR Yellow [facility] U APPEAR Clear [facility] U GLUC Negative NEG [facility] U BILI Negative NEG [facility] U KETONE Negative NEG [facility] U SG >=1.030 1.003-1. [facility] U BLOOD Negative NEG [facility] U PH 7.5 5.0-7.5 [facility] U PROTEIN Negative NEG [facility] MG/DL [facility] U UROBILI 1.0 EU/DL 0.2-1.0 [facility] U NITRITE Negative [facility] U LEUK EST Negative [facility] ID Date Data Source [id number] 07/09/2019 10:14:00 PM EDT [facility] Name Value Range Interpretation Description Data Sup porting Code Source(s) Document(s ) GLUCOSE 108 70-110 [facility] MG/DL [facility] BUN 11 MG/DL 6-22 [facility] CREATININE 0.70 0.50-1.2 [facility] MG/DL 0 [facility] SODIUM 143 135-145 [facility] MMOL/L [facility] POTASSIUM 4.1 3.5-5.1 [facility] mmol/L [facility] CHLORIDE 106 98-106 [facility] MMOL/L [facility] CO2 27 20-29 [facility] MMOL/L [facility] CALCIUM 9.8 8.7-10.7 [facility] mg/dL [facility] TOT PROT 7.5 G/DL 6.1-8.0 [facility] ALBUMIN 4.9 G/DL 3.5-5.8 [facility] GLOBULIN 2.6 G/DL 1.3-4.5 [facility] BILIRUBIN,TOTA 0.4 0.3-1.2 [facility] L mg/dL [facility] ALK PHOS 39 U/L 50-136 Below low normal [facility] SGOT (AST) 23 U/L 8-42 [facility] SGPT (ALT) 29 U/L 30-65 Below low normal [facility] eGFR >60 ">60.0" [facility] mL/min./1.73 square meter eGFR IF >60 ">60.0" [facility] mL/min./1.73 square meter BILIRUBIN,DIRECT <0.2 MG/DL 0.0-0.3 [facility] ID Date Data Source [id number] 07/09/2019 10:15:[address] [facility] Name Value Range Interpretation Code Description Data Catalina rce(s) Supporting Document(s ) LIPASE 61 U/L 13-60 Above high normal [facility] al ID Date Data Source [id number] 07/09/2019 09:55:[address] [facility] Name Value Range Interpretation Description Data Sup porting Code Source(s) Document(s ) WHITE BLOOD 7.3 4.0-11.5 [facility] RBC 4.53 4.60-6.2 Below low normal [address] HEMOGLOBIN 13.6 14.0-18. Below low normal [facility] g/dL [address] [place] [address] HEMATOCRIT 40.5 % 42.0-52. Below low normal [address] MCV 89.4 FL 80.0-94. [address] MCH 30.0 PG 27.0-31. [address] MCHC 33.6 33.0-37. [facility] G/DL [address] [place] [address] RDW 13.0 % 11.5-14. [address] PLT 235 140-440 [facility] MPV 9.9 FL 7.4-10.4 [facility] NEUT% 55 % [facility] IMM GRAN% 1 % [facility] LYMPH% 32 % [facility] MONO% 8 % [facility] EOS% 4 % [facility] BASO% 0 % [facility] NEUT ABS 4.0 1.7-8.6 [facility] X[facility] IMM GRAN ABS 0.1 0.0-0.1 [facility] x10E3/ Hospital LYMPH ABS 2.3 0.8-5.9 [facility] X10E3/[facility] MONO ABS 0.6 0.0-1.0 [place] [id number]/[facility] EOS ABS 0.3 0.0-0.7 [place] 807860/[facility] BASO ABS 0.0 0.0-0.2 [place] 807860/ Hospital ID Date Data Source [id number] 06/27/2019 08:35:20 PM EDT [facility] [id number] [facility] EMERGENCY DEPARTMENT [address] [facility] [address] [phone]/12/15 ---AbaHarvey (Male) [id number] CHERI 4 ED Dispo:DISCHARGE Chief Complaint: Testicle Pain Diagnosis: Pain in left testicle [] Current Providers: Attending: Amna Kimbrough Primary Nurse: Amna Alba; BERNADETTE PinedaN: [id number] [employer] [phone] - [facility] Ed Medva MrnMRN: [id number] [employer] [id number] - [facility] Medva Age SexDOB 1985 AGE 34 SEX Male Primary Care Provider: Karen Sharp MD Vcxjeeypc: (No Known Allergies)Date Reviewed: 06/27/2019Reviewe d by: Feliciano Pineda RN - Review CompleteED Provider Notes: All notesHNO ID: [id number]: Jannie Junior MDService: Emergency MedicineAuthor Type: PhysicianFiled: 12/15Note Text:HPI34 yo M c/o left testicle pain onset a few hours ago. Describes pain a s"uncomfortable". Worse when standing or moving. Denies injury, dysuria,penile discharge, abd pa in. Pt has h/o testicular torsion >10 yrs ago. Hedenies other complaint.Past Medical History:Nehal gnosis Date ADD (attention deficit hyperactivity disorder, inattentive type)01/19/2016 An xiety 01/19/2016 Anxiety Depression Mild intellectual disability 03/06/2019History reviewed. No pertinent surgical history.History reviewed. No pertinent family history.Social HistoryS ocioeconomic History Marital status: Spouse name: Not on file Number of children: N ot on file Years of education: Not on file Highest education level: Not on fileOccupational History Not on fileSocial Needs Financial resource strain: Not on file Food insecurity: W orry: Not on file Inability: Not on file Transportation needs: Medical: Not on f ile Non-medical: Not on fileTobacco Use Smoking status: Never Smoker Smokeless tobacco: Never UsedSubstance and Sexual Activity Alcohol use: No Alcohol/week: 0.0 standard drinks D rug use: No Sexual activity: Not Currently Partners: FemaleLifestyle Physical activity: Day s per week: Not on file Minutes per session: Not on file Stress: Not on fileRelationships Social connections: Talks on phone: Not on file Gets together: Not on file Attends anabaptism service: Not on file Active member of club or organization: Not on file Attends meeti ngs of clubs or organizations: Not on file Relationship status: Not on file Intimate partner vi olence: Fear of current or ex partner: Not on file Emotionally abused: Not on file Physica lly abused: Not on file Forced sexual activity: Not on fileOther Topics Concern Not on fileSoc ial History Narrative Not on fileALLERGIES: Patient has no known allergies.Review of SystemsCons titutional: Negative for chills and fever.HENT: Negative for ear pain and sore throat.Eyes: Negat natalia for photophobia and visual disturbance.Respiratory: Negative for cough and shortness of gregory th.Cardiovascular: Negative for chest pain and leg swelling.Gastrointestinal: Negative for abdominal pain, constipation, diarrhea,nausea and vomiting.Genitourinary: Negative for dys uria and frequency.Musculoskeletal: Negative for back pain and gait problem.Skin: Negative for rash and wound.Neurological: Negative for syncope and headaches.Vitals: 06/27/19 1631BP: 108/6 8Pulse: 69Resp: 18Temp: 98.5 F (36.9 C)SpO2: 99%Weight: 74.8 kg (165 lb)Height: 5' 2" (1.575 m)Physical ExamConstitutional: He appears well-developed and well-nourished.HENT:H ead: Normocephalic and atraumatic.Eyes: Conjunctivae are normal. Right eye exhibits no discharge. Left eyeexhibits no discharge.Neck: Normal range of motion. Neck supple.Cardiovascular: Norm al rate, regular rhythm and normal heart sounds.Pulmonary/Chest: Effort normal an d breath sounds normal. No respiratorydistress. He has no wheezes. He has no rales. He exhibits no tenderness.Abdominal: Soft. Bowel sounds are normal. He exhibits no distension. Thereis no te nderness. There is no rebound and no guarding.Genitourinary: Penis normal. Ri ght testis shows no mass, no swelling andno tenderness. Left testis shows tenderness (mild TTP o f L testis). Lefttestis shows no mass and no swelling. Circumcised.Genitourinary Comments: No p enile or scrotal lesionsMusculoskeletal: Normal range of motion. He exhibits no edema ortendernes s.Skin: Skin is warm and dry.Psychiatric: He has a normal mood and affect. His behavior is normal.Nursing note and vitals reviewed.Rima Tabares Cheryl, MD, reviewed the patient 's past history, allergies andhome medications as documented in the nursing chart.Labs:Rec ent Results (from the past 12 hour(s))URINALYSIS W/ RFLX MICROSCOPIC Collection Time: 06/27/19 5 :16 PMResult Value Ref Range Color YELLOW YEL Appearance CLEAR CLEAR Specific gravity 1.001 (L) 1 .003 - 1.030 pH (UA) 6.5 4.6 - 8.0 Protein NEGATIVE NEG mg/dL Glucose NEGATIVE NEG mg/dL Ketone NEGATIVE NEG mg/dL Bilirubin NEGATIVE NEG Blood NEGATIVE NEG Urobilinogen 0.2 0.2 - 1.0 EU/dL Nitrites NEGATIVE NEG Leukocyte Esterase NEGATIVE NEGRadiology:CXR Results (Las t 48 hours) NoneCT Results (Last 48 hours) NoneEcho Results (Last 48 hours) NoneUS Scrotum: IMPRESSION: 1. On Doppler examination flow is noted to the left testes. The lefttestis issmall er than the right and demonstrates heterogeneous echotexture withmultifocal areas of hypo echogenicity. These findings may be a sequelae ofprevious torsion with areas of infarct . Acute orchitis is in thedifferentialconsideration. Follow-up is advised.2. Small right epi didymal cyst. Normal right testis.<EMERGENCY DEPARTMENT CASE SUMMARY>ED Course:34 y.o. male pres ented to the ED c/o L scrotal pain.Check UA, US scrotumLabs and imaging reviewed. No ac [place] pathology.Pain has resolved.D/c home. F/U urology.7:24 PM: Patient was reassessed prior to discharge. Patient's symptomsResolved. I personally discussed test results with p atient/guardian, whounderstands instructions. All questions were answered. Patient/guardi anadvised to follow up with PMD and/or specialist. Patient/guardianinstructed to return to the ER if symptoms persist, change or worsen.Patient agrees with plan.Final Impression/Diagno sis:Encounter Diagnoses ICD-10-CM ICD-9-CM1. Pain in left testicle N50.812 608.9Patient condi tion at time of disposition: improvedI have reviewed the following home medications:Prior to Admi ssion medicationsMedication Sig Start Date End Date Taking? Authorizing Providergabapentin ( NEURONTIN) 100 mg capsule Take 100 mg by mouth nightly. YesOther, Phys, MDclonazePAM (KLONOPIN) 0.5 mg tablet 04/18/18 Provider, EfrainrisperiDONE (RISPERDAL) 2 mg t ablet 01/04/16 Provider, Jannie Mar MD I, Cheryl Malina, MD, am serving as a sc ribe to document servicespersonally performed by Jannie Junior MD based on my observation and trista sullivan's statements to me.Rima Lloyd Cheryl, MD, attest that the person(s) noted above, a cting as myscribe(s) noted above, has observed my performance of the services and hasdocum ented them in accordance with my direction. I have personallyreviewed the above information and have ordered and reviewed thediagnostic studies, unless otherwise noted.ED Orders GABAPENTIN 100 MG CAP [#[id number]] Priority: Routine Class: Historical Med [id number] URINALYSIS W/ RFLX MICROSCOPIC [#[id number]] Priority: STAT Class: E R Collect Standing Order Information Remaining Occurrences:0/1 Interval:ONE TI ME Last released:06/27/2019 Released orders: MonJun 27, 2019 4:41 PM by: FELICIANO PINEDA [id number] URINALYSIS W/ RFLX MICROSCOPIC [#[id number]] Prior ity: STAT Class: ER Collect Specimen Source: Urine Specimen Collected: 06/27/2019 5:16 PM Resulting Agency: [facility] Test ID: UA Released on: 06/27/2019 4:41 PM [id number] CULTURE, URINE [#[id number]] Priority: STAT Class: E R Collect Specimen Source: Clean catch Standing Order Information Remaining Occurre nces:0/1 Interval:ONE TIME Last released:06/27/2019 Released orders : MonJun 27, 2019 4:41 PM by: FELICIANO PINEDA Reason for Culture -> Pelvi c pain [id number] CULTURE, URINE [#[id number]] Priority: STAT Class: E R Collect Specimen Source: Clean catch Specimen Collected: 06/27/2019 5:15 PM Resultin g Agency: [facility] Test ID: SEARCH MARKETING SPECIALIST Reason for Culture -> Pelvic pa in Released on: 06/27/2019 4:41 PM [id number] US SCROTUM/TESTICLES [#[id number]] Priority: STAT Class: Hospital Performed Standing Order Information Remainin g Occurrences:0/1 Interval:ONE TIME Last released:06/27/2019 Released orders : MonJun 27, 2019 5:02 PM by: JANNIE JUNIOR Reason for Exam -> pain, left testi tolu [id number] US SCROTUM/TESTICLES [#[id number]] Priority: STAT Class: H ospital Performed Specimen Collected: 06/27/2019 6:00 PM Resulting Agency: [facility] Test ID: [id number] Reason for Exam -> pain, left testicle Released on: 06/27/2019 5:0 2 PMHarvey Troncoso MR#: [id number] * Rm: IRASEMA-OTFHt: 5' 2" Wt: 165 lb Code: Not on file Iso:Diagnosis:Allergies: No Known Allergies -------- Current as of: 06/27/192034 ---This patient has no MAR information. ED Current OP Medicationsgabapentin (NEURONTIN) 100 mg capsuleSig:Take 100 m g by mouth nightly.Dispense Amount:Start Date:End Date:Doc. Provider: Other, Alni, MDclona zePAM (KLONOPIN) 0.5 mg tabletSig:Dispense Amount:Start Date:04/18/2018End Date:Doc. Provider: Efrain PerdomorisperiDONE (RISPERDAL) 2 mg tabletSig:Dispense Amount:Start Date:01/04End Date:Doc. Provider: Provider, Historical ED Prescriptions None on FileFollow-up InformationFollow-up With:Miguel Fabian, MDDetails:Schedule an appointment as soon as possible for a visitComments:UROLOGYCont act Info:[address] [place] [address] [phone] With:[facility] EMERGENCY DEPARTMENTDetails:Comments:As needed, If symptoms worsenContact Info:[address] [place] [id number] Name Value Range Interpretation Code Description Data Catalina rce(s) Supporting Document(s ) ID Date Data Source [id number] 06/27/2019 07:57:45 PM EDT [facility] Pt discharged & given discharge instruct ions by Dr Junior. Name Value Range Interpretation Code Description Data Catalina rce(s) Supporting Document(s ) ID Date Data Source [id number] 06/27/2019 07:24:23 PM EDT [facility] HPI34 yo M c/o left testicle pain onset a few hours ago. Describes pain as"uncomfortable". Worse when standing or moving. Denies injury, dysuria, peniledischarge, abd pain. Pt has h/o te sticular torsion >10 yrs ago. He denies othercomplaint.Past Medical History:Diag nosis Date ADD (attention deficit hyperactivity disorder, inattentive type ) 01/19/2016 Anxiety 01/19/2016 Anxiety Depression Mild intellectual disability 03/06/2019History reviewed. No pertinent surgical history.History reviewed. No pe rtinent family history.Social HistorySocioeconomic History Marital st atus: Spouse name: Not on file Number of children: Not on file Years o f education: Not on file Highest education level: Not on fileOccupational History Not on fileSocial Needs Financial resource strain: Not on file Food insecurity: W orry: Not on file Inability: Not on file Transportation needs: Medical: Not on f ile Non-medical: Not on fileTobacco Use Smoking status: Never Smoker Smokeless tobacco: Never UsedSubstance and Sexual Activity Alcohol use: No Alcohol/week: 0.0 standard drinks Drug use: No Sexual activity: Not Currently Partners: Jackelin Root Physical activity: Days per week: Not on file Minutes per session: Not on file Stress: Not on fileRelationships Social connections: Talks on phone: No t on file Gets together: Not on file Attends anabaptism service: Not on file Active member of club or organization: Not on file Attends meetings of clubs or organ izations: Not on file Relationship status: Not on file Intimate partner violence: Fear of current or ex partner: Not on file Emotionally abused: Not on file Physica lly abused: Not on file Forced sexual activity: Not on fileOther Topics Concer n Not on fileSocial History Narrative Not on fileALLERGIES: Patient has no known a llergies.Review of SystemsConstitutional: Negative for chills and fever.HENT: Nega tive for ear pain and sore throat.Eyes: Negative for photophobia and visual dist urbance.Respiratory: Negative for cough and shortness of breath.Cardiovascular: Nega tive for chest pain and leg swelling.Gastrointestinal: Negative for abdominal pain, constipation, diarrhea, nauseaand vomiting.Genitourinary: Negati ve for dysuria and frequency.Musculoskeletal: Negative for back pain and gait problem. Skin: Negative for rash and wound.Neurological: Negative for syncope and headaches.Vitals: 06/27/19 1631BP: 108/68Pulse: 69Resp: 18Temp: 98.5 F (36 .9 C)SpO2: 99%Weight: 74.8 kg (165 lb)Height: 5' 2" (1.575 m)Physical ExamC onstitutional: He appears well-developed and well-nourished.HENT:Head: Normocephalic and atraumatic.Eyes: Conjunctivae are normal. Right eye exhibits no discharge. Left ey eexhibits no discharge.Neck: Normal range of motion. Neck supple.Cardiovascular: Norm al rate, regular rhythm and normal heart sounds.Pulmonary/Chest: Effort normal an d breath sounds normal. No respiratorydistress. He has no wheezes. He has no rales. He exhibits no tenderness.Abdominal: Soft. Bowel sounds are normal. He exhibits no distension. There is notenderness. There is no rebound and no guarding.Genitourinary: Penis normal. Right testis shows no mass, no swelling and notenderness. Left testis shows tenderness (mild TTP of L testis). Left testisshows no mass and no swelling. Circumcised.Genitourinary Comments: No p enile or scrotal lesionsMusculoskeletal: Normal range of motion. He exhibits no e jim or tenderness.Skin: Skin is warm and dry.Psychiatric: He has a normal mood an d affect. His behavior is normal.Nursing note and vitals reviewed.MDMProcedStacy Chen Cheryl, MD, reviewed the patient's past history, allergies and homemedications a s documented in the nursing chart.Labs:Recent Results (from the past 12 hour(s))URINAL YSIS W/ RFLX MICROSCOPIC Collection Time: 06/27/19 5:16 PMResult Value Ref Range Color YELLOW YEL Appearance CLEAR CLEAR Specific gravity 1.001 (L) 1.003 - 1.030 pH (UA) 6.5 4.6 - 8.0 Protein NEGATIVE NEG mg/dL Glucose NEGATIVE NEG mg/dL Ketone NEGATIVE NEG mg/dL Bilirubin NEGATIVE NEG Blood NEGATIVE NEG Urobilinogen 0.2 0.2 - 1.0 EU/dL Nitrites NEGATIVE NEG Leukocyte Esterase NEGATIVE NEGRadiology:CXR Resu lts (Last 48 hours) NoneCT Results (Last 48 hours) NoneEcho Results (Last 48 hours) NoneUS Scrotum:IMPRESSION: 1. On Doppler examination flow is noted to the left te stes. The left testis issmaller than the right and demonstrates heterogeneous ech otexture withmultifocal areas of hypoechogenicity. These findings may be a sequelae ofprevious torsion with areas of infarct. Acute orchitis is in the diffe rentialconsideration. Follow-up is advised.2. Small right epididymal cyst. Normal right testis.<EMERGENCY DEPARTMENT CASE SUMMARY>ED Course:34 y.o. male pres ented to the ED c/o L scrotal pain.Check UA, US scrotumLabs and imaging reviewed. No acute pathology.Pain has resolved.D/c home. F/U urology.7:24 PM: Patient was reasses sed prior to discharge. Patient's symptoms Resolved.I personally discussed test res ults with patient/guardian, who understandsinstructions. All questions w ere answered. Patient/guardian advised to followup with PMD and/or specialist. Pat ient/guardian instructed to return to the ERif symptoms persist, change or worsen. Patient agrees with plan.Final Impression/Diagnosis:Encounter Diagnoses ICD-10-CM ICD-9-CM1. Pain in left testicle N50.812 608.9Patient condition at time o f disposition: improvedI have reviewed the following home medications:Prior to Admi ssion medicationsMedication Sig Start Date End Date Taking? Authorizing Providergab apentin (NEURONTIN) 100 mg capsule Take 100 mg by mouth nightly. Yes Other,Phys, M DclonazePAM (KLONOPIN) 0.5 mg tablet 04/18/18 Provider, EfrainrisperiDONE (RISPE RDAL) 2 mg tablet 01/04/16 Provider, Jannie Mar MD I, Cheryl M alina, MD, am serving as a scribe to document services personallyperformed by Jannie Junior MD based on my observation and the provider'sstatements to me.Rima Lloyd Ch eryl, MD, attest that the person(s) noted above, acting as myscribe(s) noted above , has observed my performance of the services and hasdocumented them in accordance wit h my direction. I have personally reviewed theabove information and have ordered an d reviewed the diagnostic studies, unlessotherwise noted. Name Value Range Interpretation Code Description Data Catalina rce(s) Supporting Document(s ) ID Date Data Source [id number] 06/27/2019 06:44:12 PM EDT [facility] Pt to ultrasound. Name Value Range Interpretation Code Description Data Catalina rce(s) Supporting Document(s ) ID Date Data Source [id number] 06/27/2019 06:04:14 PM EDT [facility] US SCROTUM/TESTICLESClinical Data: pain, left testicle history of torsion and prior surgery.Priors: None.Technique: Real-talisha e, high resolution sonography of the scrotum was performedincluding testicular Dopple r examination.Findings: Right testes is of normal size, shape and echotexture witho ut afocalmass. The right testes measures 6 x 3.6 x 2.6 cm. On color Doppler andspect ral analysis, normal flow is seen within both testes.The left testis is smaller than t he right measuring 4.4 x 3.6 x 1.870. Withinthe left testes although there is no discrete mass, there are multifocal areasof hypoechogenicity. On Doppler ex amination there is flow noted to the lefttestes.Normal left epididymis. Ther e is a 1.2 simple right epididymal cyst. Thereisno hydrocele or varicocele.IMPRES ZEINAB:1. On Doppler examination flow is noted to the left testes. The left testisissm aller than the right and demonstrates heterogeneous echotexture withmultifocal areas of hypoechogenicity. These findings may be a sequelae ofprevious torsion wit h areas of infarct. Acute orchitis is in the differentialconsideration. Follow-up is advised.2. Small right epididymal cyst. Normal right testis.Signing date/time: 6:04 PMSigned by: ELIANA GUTIERREZ Name Value Range Interpretation Code Description Data Catalina rce(s) Supporting Document(s ) ID Date Data Source [id number] 06/27/2019 06:39:36 PM EDT [facility] Name Value Range Interpretation Description Data Sup porting Code Source(s) Document(s ) Color of Urine YEL [facility] - [facility] Appearance of CLEAR [facility] - Urine [facility] Specific gravity 1.001 1.003-1. Below low normal [facility] - of Urine by 030 [facility] Refractometry [facility] pH of Urine by 6.5 4.6-8.0 [facility] - Test strip [facility] Protein NEG [facility] - [Mass/volume] in [facility] Urine by Test Hospital strip Glucose NEG [facility] - [Mass/volume] in [facility] Urine by Hospital Automated test strip Ketones NEG [facility] - [Presence] in [facility] Urine by Hospital Automated test strip Bilirubin.total NEG [facility] - [Presence] in [facility] Urine [facility] Hemoglobin NEG [facility] - [Presence] in [facility] Urine by Test Hospital strip Urobilinogen 0.2 0.2-1.0 [facility] - [Presence] in EU/dL [facility] Urine by Hospital Automated test strip Nitrite NEG [facility] - [Presence] in [facility] Urine by Hospital Automated test strip Leukocyte NEG [facility] - [facility] [Presence] in Hospital Urine by Automated test strip ID Date Data Source [id number] 06/28/2019 07:04:40 PM EDT [facility] Name Value Range Interpretation Description Data Sup porting Code Source(s) Document(s ) Service comment [facility] - [facility] Bacteria [facility] - identified in [facility] Unspecified Hospital specimen by Culture ID Date Data Source [id number] 06/27/2019 05:10:08 PM EDT [facility] Pt seen & evaluated by Dr Junior. Name Value Range Interpretation Code Description Data Catalina rce(s) Supporting Document(s ) ID Date Data Source [id number] 06/27/2019 04:57:49 PM EDT [facility] Pt ambulated to to void. Urine specim ans sent to lab. Name Value Range Interpretation Code Description Data Catalina rce(s) Supporting Document(s ) ID Date Data Source [id number] 06/27/2019 04:37:01 PM EDT [facility] Pt BIBA from home with c/o left testicle pain that started today. Pt with hx oftesticular torsion. Pt denies any test icular swelling at this time. Name Value Range Interpretation Code Description Data Catalina rce(s) Supporting Document(s ) ID Date Data Source CT ABDOMEN/PELVIS W PO AND IV 04/30/2019 12:33:25 AM EDT eCW 2 ([facility]) CONTRAST.0 Name Value Range Interpretation Description Data Sup porting Code Source(s) Document(s ) Laboratory CT eCW2 ([facility] studies (set) ABDOMEN/PELVIS Health W PO AND IV Center) CONTRAST ID Date Data Source Throat Culture for 09/26/2018 12:00:00 AM EDT eCW2 ([facility]) Beta-Strep.0 Name Value Range Interpretation Code Description Data Supporting Source(s) Document(s ) NEGATIVE NEGATIVE 24HR THROAT eCW2 ([facility]) NEGATIVE NEGATIVE 48HR THROAT eCW2 ([facility]) Procedure Social History Code Duration Value Status Description Data Source(s ) Alcohol intake 06/22/2020 Current completed Current [facility] 12:00:00 AM non-drinker non-drinker of [facility] EDT of alcohol alcohol (finding) [facility] (finding) Tobacco use and 06/22/2020 Never used completed Never used [facility] exposure 12:00:00 AM [employer] EDT [facility] Smoking 06/22/2020 Never smoker completed Never smoker [facility] 12:00:00 AM [employer] EDT [facility] Smoking 05/15/2020 Never Smoker completed Never Smoker eCW1 ([facility] 12:00:00 AM Disease EDT [facility]) Smoking 05/15/2020 Never Smoker completed Never Smoker eCW1 ([facility] 12:00:00 AM Disease EDT [facility]) Smoking 05/15/2020 Never Smoker completed Never Smoker eCW1 ([facility] 12:00:00 AM Disease EDT [facility]) Smoking 05/15/2020 Never Smoker completed Never Smoker eCW1 ([facility] 12:00:00 AM Disease EDT [facility]) Smoking 05/15/2020 Never Smoker completed Never Smoker eCW1 ([facility] 12:00:00 AM Disease T [facility]) Smoking 05/15/2020 Never Smoker completed Never Smoker eCW1 ([facility] 12:00:00 AM Disease T [facility]) Alcohol intake 11/05/2019 Current completed Current [facility] 12:00:00 AM non-drinker non-drinker of [employer] alcohol alcohol (finding) [facility] (finding) Tobacco use and 11/05/2019 Never used completed Never used [facility] exposure 12:00:00 AM [employer] [facility] Smoking 11/05/2019 Never smoker completed Never smoker [facility] 12:00:00 AM [employer] [facility] Alcohol intake 10/14/2019 Current completed Current [place] [facility] 12:00:00 AM non-drinker non-drinker of [employer] alcohol alcohol (finding) [facility] (finding) Smoking 10/14/2019 Never smoker completed Never smoker [facility] 12:00:00 AM [employer] [facility] Smoking 09/30/2019 Never smoker completed Never smoker [facility] 12:00:00 AM [employer] [facility] [employer] Smoking 07/25/2019 Never smoker completed Never smoker [facility] 12:00:00 AM [employer] [facility] Smoking 06/27/2019 Never smoker completed Never smoker [facility] 12:00:00 AM [facility] Never Smoker completed Never Smoker eCW1 ([facility] Disease [facility]) Never Smoker completed [facility] Never Smoker completed Never Smoker eCW1 ([facility] Disease [facility]) Never Smoker completed Never Smoker eCW1 ([facility] stive Disease [facility]) Never Smoker completed Never Smoker eCW1 ([facility] Disease [facility]) Smoking Unknown if completed Unknown if ever eCW2 (Ref [facility] ever smoked smoked [facility] ) Smoking Unknown if completed Unknown if ever eCW2 (Ref [facility] ever smoked smoked [facility] ) Never Smoker completed Never Smoker eCW1 ([facility] st[facility] Disease [facility]) Smoking Unknown if completed Unknown if ever eCW2 (Ref [facility] ever smoked smoked [facility] ) Smoking Unknown if completed Unknown if ever eCW1 (Dig estive ever smoked smoked Disease [facility]) Smoking Unknown if completed Unknown if ever eCW1 (Dig estive ever smoked smoked Disease [facility]) Smoking Unknown if completed Unknown if ever eCW1 (Dig estive ever smoked smoked Disease [facility]) Smoking Unknown if completed Unknown if ever eCW1 (Dig estive ever smoked smoked Disease [facility]) Smoking Unknown if completed Unknown if ever eCW1 (Dig estive ever smoked smoked Disease [facility]) Smoking Unknown if completed Unknown if ever eCW1 (Dig estive ever smoked smoked Disease [facility]) Smoking Unknown if completed Unknown if ever eCW1 (Dig estive ever smoked smoked Disease [facility]) Smoking Unknown if completed Unknown if ever eCW1 (Dig estive ever smoked smoked Disease [facility]) Smoking Unknown if completed Unknown if ever eCW1 (Dig estive ever smoked smoked Disease [facility]) Smoking Unknown if completed Unknown if ever eCW1 (Dig estive ever smoked smoked Disease [facility]) Smoking Unknown if completed Unknown if ever eCW1 (Dig estive ever smoked smoked Disease [facility]) Smoking Unknown if completed Unknown if ever eCW2 (Ref [facility] ever smoked smoked [facility] ) Alcohol intake No completed [facility] [employer] [facility] Alcohol intake No completed [facility] [employer] [facility] Alcohol intake No completed [facility] [employer] [facility] Smoking Unknown if completed Unknown if ever eCW2 (Ref [facility] ever smoked smoked [facility] ) Smoking Unknown if completed Unknown if ever eCW2 (Ref [facility] ever smoked smoked [facility] ) Smoking Unknown if completed Unknown if ever eCW2 (Ref [facility] ever smoked smoked [facility] ) Smoking Unknown if completed Unknown if ever eCW2 (Ref [facility] smoked smoked [facility] ) Smoking Unknown if completed Unknown if ever eCW2 (Ref [facility] smoked smoked [facility] ) Smoking Unknown if completed Unknown if ever eCW2 (Ref [facility] smoked smoked [facility] ) Smoking Unknown if completed Unknown if ever eCW2 (Ref [facility] smoked smoked [facility] ) Smoking Unknown if completed Unknown if ever eCW2 (Ref [facility] smoked smoked [facility] ) Smoking Unknown if completed Unknown if ever eCW2 (Ref [facility]a ever smoked smoked [facility] ) Smoking Unknown if completed Unknown if ever eCW2 (Ref [facility]a ever smoked smoked [facility] ) Smoking Unknown if completed Unknown if ever eCW2 (Ref [facility]a [facility] smoked smoked [facility] ) Smoking Unknown if completed Unknown if ever eCW2 (Ref [facility]a [facility] smoked smoked [facility] ) Smoking Unknown if completed Unknown if ever eCW2 (Ref [facility]a [facility] smoked smoked [facility] ) Smoking Unknown if completed Unknown if ever eCW2 (Ref [facility]a [facility] smoked smoked [facility] ) Smoking Unknown if completed Unknown if ever eCW2 (Ref [facility]a [facility] smoked smoked [facility] ) Smoking Unknown if completed Unknown if ever eCW2 (Ref [facility]a [facility] smoked smoked [facility] ) Smoking Unknown if completed Unknown if ever eCW2 (Ref [facility]a [facility] smoked smoked [facility] ) Smoking Unknown if completed Unknown if ever eCW2 (Ref [facility]a [facility] smoked smoked [facility] ) Smoking Unknown if completed Unknown if ever eCW2 (Ref [facility]a [facility] smoked smoked [facility] ) Smoking Unknown if completed Unknown if ever eCW2 (Ref [facility]a [facility] smoked smoked [facility] ) Smoking Unknown if completed Unknown if ever eCW2 (Ref [facility]a [facility] smoked smoked [facility] ) Smoking Unknown if completed Unknown if ever eCW2 (Ref [facility]a [facility] smoked smoked [facility] ) Smoking Unknown if completed Unknown if ever eCW2 (Ref [facility]a [facility] smoked smoked [facility] ) Smoking Unknown if completed Unknown if ever eCW2 (Ref [facility]a [facility] smoked smoked [facility] ) Smoking Never Smoker completed [facility] Smoking Unknown if completed Unknown if ever eCW2 (Ref [facility]a [facility] smoked smoked [facility] ) Smoking Unknown if completed Unknown if ever eCW2 (Ref [facility]a [facility] smoked smoked [facility] ) Smoking Unknown if completed Unknown if ever eCW2 (Ref [facility]a [facility] smoked smoked [facility] ) Smoking Never Smoker completed Never Smoker [facility]CW2 [facility] Smoking Unknown if completed Unknown if ever eCW2 (Ref [facility]a [facility] smoked smoked [facility] ) Smoking Unknown if completed Unknown if ever eCW2 (Ref [facility]a [facility] smoked [facility] ) Smoking Unknown if completed Unknown if ever eCW2 (Ref [facility]a [facility] smoked smoked [facility] ) Smoking Unknown if completed Unknown if ever eCW2 (Ref [facility]a [facility] smoked smoked [facility] ) Smoking Unknown if completed Unknown if ever eCW2 (Ref [facility]a [facility] smoked smoked [facility] ) Smoking Unknown if completed Unknown if ever eCW2 (Ref [facility]a [facility] smoked smoked [facility] ) Smoking Unknown if completed Unknown if ever eCW2 (Ref [facility]a [facility] smoked smoked [facility] ) Smoking Unknown if completed Unknown if ever eCW2 (Ref [facility]a [facility] smoked smoked [facility] ) Smoking Unknown if completed Unknown if ever eCW2 (Ref [facility]a [facility] smoked smoked [facility] ) Smoking Unknown if completed Unknown if ever eCW2 (Ref [facility]a [facility] smoked smoked [facility] ) Smoking Unknown if completed Unknown if ever eCW2 (Ref [facility]a [facility] smoked smoked [facility] ) Smoking Unknown if completed Unknown if ever eCW2 (Ref [facility]a [facility] smoked smoked [facility] ) Smoking Unknown if completed Unknown if ever eCW2 (Ref [facility]a [facility] smoked [facility] ) Vital Signs ID Date Data Source UNK Name Value Range Interpretation Code Description Data Source(s) Oxygen saturation 98 % 98 % [facility] in Arterial blood [facility] by Pulse oximetry System [facility] Body mass index 30.90 kg/m2 30.90 kg/m2 [facility] (BMI) [Ratio] [facility] Body weight 81.647 kg 81.647 kg [facility] Body height 162.6 cm 162.6 cm [facility] Body temperature 36.5 Doolres 36.5 Dolores [facility] urs [facility] Heart rate 80 /min 80 /min [facility] Diastolic blood 65 mm[Hg] 65 mm[Hg] [facility] rs pressure [facility] Systolic blood 100 mm[Hg] 100 mm[Hg] [facility] pressure [facility] Diastolic blood 69 mm[Hg] 69 mm[Hg] eCW1 (Dig estive pressure Disease [facility]) Systolic blood 105 mm[Hg] 105 mm[Hg] eCW1 (Dige stive pressure Disease [facility]) Heart rate 74 /min 74 /min eCW1 (Digestiv e Disease [facility]) Body mass index 31.88 kg/m2 31.88 kg/m2 eCW1 (D igestive (BMI) [Ratio] Disease [facility]) Body weight 180 [lb_av] 180 [lb_av] eCW1 (Diges tive Measured Disease [facility]) Body height 63 [in_us] 63 [in_us] eCW1 (Digesti ve [facility]) Diastolic blood 68 mm[Hg] 68 mm[Hg] eCW1 (Dig estive pressure [facility]) Systolic blood 100 mm[Hg] 100 mm[Hg] eCW1 (Dige stive pressure [facility]) Heart rate 78 /min 78 /min eCW1 (Digestiv e [facility]) Body mass index 31.88 kg/m2 31.88 kg/m2 eCW1 (D igestive (BMI) [Ratio] [facility]) Body weight 180 [lb_av] 180 [lb_av] eCW1 (Diges tive Measured [facility]) Body height 63 [in_us] 63 [in_us] eCW1 (Digesti ve Disease [facility]) Oxygen saturation 98 % 98 % [facility] in Arterial blood [place] by [facility]ulse [facility] [employer] Body mass index 29.18 kg/m2 29.18 kg/m2 [facility] (BMI) [Ratio] [employer] [facility] Body weight 77.111 kg 77.111 kg [facility] [employer] [place] [facility] Body height 162.6 cm 162.6 cm [facility] [employer] [place] [facility] [employer] Heart rate 105 /min 105 /min [facility] [place] [facility] Diastolic blood 68 mm[Hg] 68 mm[Hg] [facility] pressure [place] [facility] [employer] Systolic blood 110 mm[Hg] 110 mm[Hg] [facility] [facility] pressure [employer] [facility] [employer] Oxygen saturation 98 % 98 % [facility] in Arterial blood [place] by Pulse oximetry [facility] [employer] Body mass index 29.18 kg/m2 29.18 kg/m2 [facility] (BMI) [Ratio] [employer] [facility] [employer] Body weight 77.111 kg 77.111 kg [facility] [employer] [place] [facility] [employer] Body height 162.6 cm 162.6 cm [facility] [employer] [place] [facility] [employer] Heart rate 68 /min 68 /min [facility] [place] [facility] Diastolic blood 74 mm[Hg] 74 mm[Hg] [facility] pressure [place] [facility] [employer] Systolic blood 106 mm[Hg] 106 mm[Hg] [facility] pressure [facility] Oxygen saturation 98 % 98 % [facility] in Arterial blood [place] by Pulse [employer] [facility] Body mass index 29.18 kg/m2 29.18 kg/m2 [facility] (BMI) [Ratio] [employer] [facility] [employer] Body weight 77.111 kg 77.111 kg [facility] [employer] Body height 162.6 cm 162.6 cm [facility] [employer] Heart rate 78 /min 78 /min [facility] [employer] Diastolic blood 70 mm[Hg] 70 mm[Hg] [facility] pressure [employer] Systolic blood 100 mm[Hg] 100 mm[Hg] [place] [facility] pressure [employer] Oxygen saturation 99 % 99 % [facility] in Arterial blood [place] by Pulse [employer] [facility] [employer] Body mass index 30.18 kg/m2 30.18 kg/m2 [facility] (BMI) [Ratio] [employer] [facility] Body weight 74.844 kg 74.844 kg [facility] [employer] Body height 157.5 cm 157.5 cm [facility] [employer] Respiratory rate 18 /min 18 /min [facility] Sec[employer] urs [place] [employer] Body temperature 36.94 Dolores 36.94 Dolores [facility] Seco urs [place] [facility] [employer] Heart rate 69 /min 69 /min [employer] Diastolic blood 68 mm[Hg] 68 mm[Hg] [facility] pressure [employer] Systolic blood 108 mm[Hg] 108 mm[Hg] [place] [facility] pressure [employer] Body mass index 31.27 kg/m2 31.27 kg/m2 eCW2 (R e[facility]ah (BMI) [Ratio] [facility]) Body weight 171 [lb_av] 171 [lb_av] eCW2 ([facility] Center) Body height 62 [in_us] 62 [in_us] eCW2 ([facility]) Body temperature 97.7 [degF] 97.7 [degF] eCW2 ( [facility]) Body mass index 29.26 kg/m2 29.26 kg/m2 eCW2 ([facility] Body weight 160 [lb_av] 160 [lb_av] eCW2 ([facility]) Body height 62 [in_us] 62 [in_us] eCW2 ([facility]) Body mass index 29.26 kg/m2 29.26 kg/m2 eCW2 ([facility] Body weight 160 [lb_av] 160 [lb_av] eCW2 ([facility]) Body height 62 [in_us] 62 [in_us] eCW2 ([facility]) Body temperature 98.0 [degF] 98.0 [degF] eCW2 ( [facility]) Body mass index 29.26 kg/m2 29.26 kg/m2 eCW2 ([facility] Body weight 160 [lb_av] 160 [lb_av] eCW2 ([facility]) Body height 62 [in_us] 62 [in_us] eCW2 ([facility]) Body height 62 [in_us] 62 [in_us] eCW2 ([facility]) Body mass index 29.26 kg/m2 29.26 kg/m2 eCW2 ([facility] Body weight 160 [lb_av] 160 [lb_av] eCW2 ([facility]) Body height 62 [in_us] 62 [in_us] eCW2 ([facility]) Body temperature 98.2 [degF] 98.2 [degF] eCW2 ( [facility]) Body mass index 30.54 kg/m2 30.54 kg/m2 eCW2 ([facility] ([facility] Body weight 167 [lb_av] 167 [lb_av] eCW2 ([facility]) Body height 62 [in_us] 62 [in_us] eCW2 ([facility]) Body temperature 97.4 [degF] 97.4 [degF] eCW2 ( [facility]) ID Date Data Source [id number] 07/11/2019 03:50:[address] [facility] l Name Value Range Interpretation Code Description Data Source(s) Weight 74.84 KG 74.84 KG [facility] Height 157.48 CM 157.48 CM [facility] Weight 74.84 KG 74.84 KG [facility] Height 157.48 CM 157.48 CM [facility] status N N Draper Ho rao [Interpretation] - Reported Patient Treatment Plan of Care Planned Activity Planned Date Details Description Data Source (s) PARoxetine (PAXIL) 10 mg 2020 [facility] tablet 12:00:00 AM EDT [facility] doxycycline hyclate 100 MG 09/29/2019 [facility] Oral Tablet 12:00:00 AM EDT [facility] Naproxen 375 MG Oral 07/24/2019 [facility] Tablet 12:00:00 AM EDT [facility] Lidocaine 40 MG/ML Topical 07/17/2019 [facility] Cream 12:00:00 AM EDT [facility] Fluvoxamine Maleate 100 MG 07/01/2019 [facility] Oral Tablet 12:00:00 AM EDT [facility] Hydrocortisone 25 MG/ML 05/29/2019 [facility] Topical Cream 12:00:00 AM EDT [facility] Clindamycin 10 MG/ML 05/29/2019 [facility] Topical Lotion 12:00:00 AM EDT [facility] Lidocaine 40 MG/ML Topical 04/25/2019 [facility] Cream 12:00:00 AM EDT [facility] Polyethylene Glycol 3350 - 11/16/2018 e CW2 ([facility] 12:00:00 AM EST Center) Escitalopram 20 MG Oral 04/24/2018 [facility] Tablet 12:00:00 AM EDT [facility] benztropine mesylate 0.5 04/24/2018 [facility] MG Oral Tablet 12:00:00 AM EDT [facility] Clonazepam 0.5 MG Oral 04/18/2018 [facility] Tablet 12:00:00 AM EDT [facility] Hydrocortisone 25 MG/ML 07/05/2017 [facility] Topical Cream 12:00:00 AM EDT [facility] Amoxicillin 250 MG Oral 01/15/2016 [facility] Capsule 12:00:00 AM EST [facility] Risperidone 2 MG Oral 01/04/2016 [facility] Tablet 12:00:00 AM EST [facility] lamotrigine 100 MG Oral 01/04/2016 [facility] Tablet 12:00:00 AM EST [facility] Clonazepam 1 MG Oral eCW2 ([facility] [Klonopin[facility]) Hydroxyzine Hydrochloride eC W2 ([facility] 25 MG Oral Tablet [facility]) Risperidone 0.5 MG Oral [facility]CW2 [facility]) gabapentin 100 MG Oral [facility] linaclotide 0.29 MG Oral eCW 1 ([facility]Linzess[facility] [place])
[2020-08-10] MEDS ORDERED: KETAMINE HCL 500 MG/10 ML VIAL ONE (10:28)
[2020-08-10 11:47] VITALS: BP 130/76; PULSE 92
== END 2020-08-10 11:50 | disposition home or self-care (01) ==
LOC: FECT 09:29
PROVIDERS: ATTEND Psychiatry & Neurology Psychiatry
PROC: GZB4ZZZ Other Electroconvulsive Therapy (ICD-10-PCS; principal; 2020-08-10 08:00)
DX: F33.2 Major depressive disorder, recurrent severe without psychotic features (principal)
CPT/HCPCS: 90870; 94760; U0003

== ENCOUNTER 2020-08-13 09:40 | Day surgery (SDC) | payer OTHER ==
[2020-08-04 17:16] VITALS: BMI 32.9
[2020-08-13] MEDS ORDERED: KETAMINE HCL 500 MG/10 ML VIAL ONE (10:48)
[2020-08-13 12:31] VITALS: TEMP 97.8
[2020-08-13 12:34] VITALS: BP 101/62; PULSE 76
--- OUTSIDE RECORDS SUMMARY | 2020-08-13 14:12 | XMS ---
:1985 Author Organization [facility] Care Team Providers Name Role Phone FRANCISCO CASTELLON MD Unavailable Unavailable KAYODESELIN SHANNON Unavailable KAYODESELIN SHANNON Unavailable KAYODESELIN SHANNON Unavailable MORALES Unavailable Unavailable NURSE Unavailable Unavailable BONNAH Unavailable Unavailable RIZQALLA Unavailable Unavailable Dahlia JIMENES Unavailable Unavailable Bel Clay MS, PAMansiC Unavailable Unavailable Bel Clay MS, PAMansiC Unavailable Unavailable MO FISH MD Unavailable Unavailable IVANNA DEL CID MD [...] is protected by Article 27-F of the [facility] Public Health law. If you continue you may haveaccess to information: Regarding HIV / AIDS; Provided by facilities licensed or operated by the [facility] Office of Mental Health; or Provided by the [facility] Office for People With Developmental Disabilities. If such information is present, then the following [facility] mandated warning applies: This information has [...] law may result in a fine or custodial sentence or both. A general authorization for the release of medical or other information is NOT sufficient authorization for further disclosure. Allergies and Adverse Reactions Type Description Substance Reaction Status Data Source(s ) Drug allergy No Known Allergies No Known [facility] Allergies No Known Allergies No Known Allergies No Known eCW1 (Dig[facility] Allergies [facility]) No Known Allergies No Known Allergies No Known eCW1 ([facility] Allergies Disease [facility]) No Known Allergies No Known Allergies No Known eCW1 ([facility] Allergies [facility]) No Known Allergies No Known Allergies No Known eCW1 ([facility] Allergies [facility]) No Known Allergies No Known Allergies No Known eCW1 ([facility] Allergies [facility]) No Known Allergies No Known Allergies No Known eCW2 ([facility]) No Information No Information No Information eC W2 ([facility]) No Known Allergies No Known Allergies No Known eCW1 (Digest[facility] Allergies Disease [facility]) No Information No Information No Information eC W2 ([facility]) No Known Allergies No Known Allergies No Known eCW1 ([facility] Allergies [facility]) No Information No Information No Information eC W1 ([facility]) No Information No Information No Information eC W1 (Dig[facility]) No Information No Information No Information eC W1 ([facility]) No Information No Information No Information eC W1 ([facility]) No Known Allergies No Known Allergies No Known eCW1 ([facility] Allergies [facility]) No Information No Information No Information eC W1 ([facility]) No Information No Information No Information eC W1 ([facility]) No Information No Information No Information eC W1 ([facility]) No Information No Information No Information eC W1 ([facility]) No Known Allergies No Known Allergies No Known eCW1 ([facility] Allergies [facility]) No Information No Information No Information eC W2 ([facility]) No Information No Information No Information eC W2 ([facility]) No Information No Information No Information eC W2 ([facility]) No Information No Information No Information eC W2 ([facility]) No Information No Information No Information eC W2 ([facility]) No Known Allergies No Known Allergies No Known eCW2 ([facility]) No Information No Information No Information eC W2 ([facility]) No Information No Information No Information eC W2 ([facility]) No Information No Information No Information eC W2 ([facility]) No Information No Information No Information eC W2 ([facility]) No Information No Information No Information eC W2 ([facility]) No Known Allergies No Known Allergies No Known eCW2 ([facility]) No Information No Information No Allergy eCW2 ( [facility] ) Available No Information No Information No Allergy eCW2 ( [facility] ) Available No Information No Information No Allergy eCW2 ( [facility] ) Available No Information No Information No Allergy eCW2 ( [facility] ) Available No Information No Information No Allergy eCW2 ( [facility] ) Available No Information No Information No Allergy eCW2 ( [facility] ) Available No Known Allergies No Known Allergies No known eCW2 ([facility]) (situation) No Information No Information No Allergy eCW2 ( [facility] ) Available No Information No Information No Allergy eCW2 ( [facility] ) Available No Information No Information No Allergy eCW2 ( [facility] ) Available No Information No Information No Allergy eCW2 ( [facility] ) Available No Information No Information No Allergy eCW2 ( [facility] ) Available No Information No Information No Allergy eCW2 ( [facility] ) Available No Known Allergies No Known Allergies No known eCW2 ([facility]) (situation) No Information No Information No Allergy eCW2 ( [facility] ) Available No Information No Information No Allergy eCW2 ( [facility] ) Available No Information No Information No Allergy eCW2 ( [facility] ) Available No Known Allergies No Known Allergies No known eCW2 ([facility]) (situation) No Information No Information No Allergy eCW2 ( [facility] ) Available No Known Allergies No Known Allergies No known eCW2 ([facility]) (situation) No Information No Information No Allergy eCW2 ( [facility] ) Available No Information No Information No Allergy eCW2 ( [facility] ) Available No Information No Information No Allergy eCW2 ( [facility] ) Available No Information No Information No Allergy eCW2 ( [facility] ) Available No Information No Information No Allergy eCW2 ( [facility] ) Available No Information No Information No Allergy eCW2 ( [facility] ) Available No Information No Information No Allergy eCW2 ( [facility] ) Available No Known Allergies No Known Allergies No known eCW2 ([facility]) (situation) No Information No Information No Allergy eCW2 ( [facility] ) Available No Information No Information No Allergy eCW2 ( [facility] ) Available No Information No Information No Allergy eCW2 ( [facility] ) Available Encounters Encounter Providers Location Date Indications Data Source(s ) (WEB) Digestive Disease 07/29/2020 eCW1 ([facility], 12:00:00 AM Dise ase [facility]) (WEB) Digestive Disease 07/29/2020 eCW1 ([facility], 12:00:00 AM [facility]) (WEB) Digestive Disease 07/29/2020 eCW1 ([facility], 12:00:00 AM [facility] EDT [facility]) (WEB) Digestive Disease 07/29/2020 eCW1 ([facility], 12:00[facility] EDT [facility]) (WEB) Digestive Disease 07/29/2020 eCW1 ([facility], 12:00:00 AM [facility] EDT [facility]) Outpatient 06/22/2020 [facility] - 06/22/2020 10:40:49 AM EDT Patient discharged. Outpatient 06/19/2020 09:00:00 [facility] - Good AM EDT [facility] Outpatient 06/19/2020 12:00:00 [facility] - Good AM EDT - 06/19/2020 [facility] 11:59:00 PM EDT [facility] 06/18/2020 12:00 :00 [facility] Outpatient 06/08/2020 10:45:00 [facility] Outpatient Digestive Disease 05/15/2020 12:00:00 eCW1 ([facility], AM EDT Disea se [facility]) Outpatient 05/11/2020 03:39:27 [facility] Outpatient 05/08/2020 08:56:37 [facility] Outpatient 05/05/2020 10:09:22 [facility] Digestive Disease Digestive Disease 04/30/2020 12:00:00 eCW1 [facility]) Outpatient 04/27/2020 09:45:00 [facility] 10:50:28 AM EDT Patient discharged. Digestive Disease Digestive Disease 04/16/2020 12:00:00 eCW1 ([facility]) Digestive Disease Digestive Disease 04/15/2020 12:00:00 eCW1 ([facility]) Digestive Disease Digestive Disease 04/06/2020 12:00:00 eCW1 ([facility]) Digestive Disease Dig[facility]ive Disease 03/25/2020 12:00:00 eCW1 ([facility]) Digestive Disease Digestive Disease 03/24/2020 12:00:00 eCW1 ([facility]) Digestive Disease Digestive Disease 03/18/2020 12:00:00 eCW1 ([facility]) Digestive Disease Digestive Disease 03/17/2020 12:00:00 eCW1 ([facility]) Digestive Disease Digestive Disease 02/27/2020 12:00:00 eCW1 ([facility]) Digestive Disease Digestive Disease 02/07/2020 12:00:00 eCW1 ([facility]) Digestive Disease Digestive Disease 01/28/2020 12:00:00 eCW1 ([facility] AM EST [facility]) Digestive Disease Digestive Disease 01/23/2020 12:00:00 eCW1 ([facility] AM EST [facility]) Digestive Disease Digestive Disease 01/23/2020 12:00:00 eCW1 ([facility] EST [facility]) Outpatient 01/09/2020 11:20:59 [facility] Digestive Disease Digestive Disease 01/08/2020 12:00:00 eCW1 ([facility] AM EST [facility]) Outpatient 01/07/2020 02:00:00 [facility] 12/31/2019 01:00:00 [facility] Digestive Disease Digestive Disease 12/31/2019 12:00:00 eCW1 ([facility] EST [facility]) Digestive Disease Digestive Disease 12/24/2019 12:00:00 eCW1 ([facility] EST [facility]) Digestive Disease Digestive Disease 12/08/2019 12:00:00 eCW1 ([facility] AM EST [facility]) [facility] 12/01/2019 12:00 :00 eCW2 ([facility]) Digestive Disease Digestive Disease 11/29/2019 12:00:00 eCW1 ([facility] AM EST [facility]) Digestive Disease Digestive Disease 11/28/2019 12:00:00 eCW1 ([facility] AM EST [facility]) Outpatient 11/26/2019 12:57:23 Casey S [facility]ani [facility] Digestive Disease Digestive Disease 10/31/2019 12:00:00 eCW1 ([facility] AM EST [facility]) Digestive Disease Digestive Disease 10/31/2019 12:00:00 eCW1 ([facility] AM EST [facility]) [facility] 10/23/2019 12:00 :00 eCW2 ([facility]) [facility] 10/16/2019 12:00 :00 eCW2 ([facility]) [facility] 10/16/2019 12:00 :00 eCW2 ([facility]) Outpatient 10/14/2019 01:00:00 Casey [facility] EST - 10/14/[facility] 01:41:51 PM EST Patient discharged. Outpatient 10/10/2019 04:00:00 PM [facility] 10/09/2019 12:00:00 AM eCW2 ([facility] EST Center) Outpatient 10/08/2019 09:48:59 AM [facility] Outpatient 10/08/2019 09:40:24 AM [facility] Outpatient 09/30/2019 09:45:00 AM [facility] EST - 09/30/2019 [facility] 11:14:07 AM EST Patient discharged. Patient Navigation [facility] 09/24/2019 12:00:00 AM eCW2 ([facility] EDT Center) (TEL) [facility] 09/01/2019 12:00:00 AM eCW2 ([facility] EDT Center) Outpatient 08/14/2019 01:15:00 PM [facility] Outpatient 08/07/2019 03:00:00 PM [facility] Outpatient 08/02/2019 05:00:03 PM [facility] [employer] [facility] 07/31/2019 12:00:00 AM eCW2 ([facility] EDT Center) Outpatient 07/25/2019 01:30:00 PM [facility] EDT - 07/25/2019 [facility] 01:50:19 PM EDT Patient discharged. [facility] 07/24/2019 eCW2 ([facility] 12:00:00 AM EDT [facility]) Outpatient 07/22/2019 [facility] 10:15:00 AM EDT [employer] [facility] Count Includes [facility] 07/17/2019 eCW2 ([facility] 12:00:00 AM EDT [facility]) Outpatient 07/15/2019 [facility] 09:30:00 AM [facility] 07/11/2019 [facility] 04:00:00 PM EDT [employer] System Count Includes [facility] 07/10/2019 eCW2 ([facility] 12:00:00 AM EDT [facility]) Outpatient Attender: TAMMY MEJIAS-RD 07/09/2019 [facility]44:[facility] - 07/10[facility]2019 [facility] 03:20:00 PM EDT RIZQALLAAdmitte r: TAMMY KAYODE BAEZConsultant: TAMMY KAYODE BAEZConsultant: SONAM MARINHConsultmarc t: CHERYL MORALESConsultant : SHLOMO FISH MDConsultant: BURT DEL CID MDConsultant: FRANCISCO CASTELLON MDConsultant: Nikki Clay MS, PA-CConsultant: CONSULT NURSEConsultant : GRETTA JIMENES LT TESTIS ORCHITIS Patient discharged. [facility] 07/03/2019 12:00:00 [facility] 07/03/2019 12:00:00 eCW2 ([facility]) Outpatient 06/27/2019 05:10:00 [facility] - Good PM EDT [facility] Emergency 06/27/2019 04:21:47 Groin Pain [facility] - Good PM EDT - 06/27/2019 [facility] 08:35:00 PM EDT Groin Pain Patient discharged. Emergency 06/27/2019 12:00:00 [facility] - Community AM EDT [facility] 06/26/2019 12:00:00 eCW2 ([facility] EDT Center) [facility] 06/19/2019 12:00:00 eCW2 ([facility] EDT Center) [facility] 06/12/2019 12:00:00 eCW2 ([facility] EDT Center) Patient Navigation [facility] 06/11/2019 12:00:00 eCW2 ([facility] EDT Center) [facility] 06/05/2019 12:00:00 eCW2 ([facility] AM EDT Center) [facility] 05/29/2019 12:00:00 eCW2 ([facility] AM EDT Center) [facility] 05/22/2019 12:00:00 eCW2 ([facility] AM EDT Center) [facility] 05/15/2019 12:00:00 eCW2 ([facility] AM EDT Center) [facility] 05/08/2019 12:00:00 eCW2 ([facility] AM EDT Center) [facility] 05/01/2019 12:00:00 eCW2 ([facility] AM EDT Center) [facility] 04/24/2019 12:00:00 eCW2 ([facility] AM EDT Center) [facility] 04/17/2019 12:00:00 eCW2 ([facility] AM EDT Center) [facility] 04/10/2019 12:00:00 eCW2 ([facility] AM EDT Center) Outpatient 04/05/2019 09:10:00 NEXTG EN ([place] AM EDT Healthcare) Outpatient 04/04/2019 09:53:00 NEXTG EN ([place] AM EDT Healthcare) [facility] 04/03/2019 12:00:00 eCW2 ([facility] AM EDT Center) [facility] 04/01/2019 12:00:00 eCW2 ([facility] AM EDT Center) [facility] 03/27/2019 12:00:00 eCW2 ([facility] AM EDT Center) [facility] 03/20/2019 12:00:00 eCW2 ([facility] AM EDT Center) [facility] 03/13/2019 12:00:00 eCW2 ([facility] AM EDT Center) Outpatient 03/06/2019 01:11:09 [facility] Verma PM EDT [facility] 03/06/2019 12:00:00 eCW2 ([facility] AM EDT Center) [facility] 02/27/2019 12:00:00 eCW2 ([facility] AM EDT Center) [facility] 02/20/2019 12:00:00 eCW2 ([facility] AM EDT Center) [facility] 02/20/2019 12:00:00 eCW2 ([facility] AM EDT Center) [facility] 02/17/2019 12:00:00 eCW2 ([facility] AM EDT Center) [facility] 02/13/2019 12:00:00 eCW2 ([facility] AM EDT Center) [facility] 02/13/2019 12:00:00 eCW2 ([facility] AM EDT Center) [facility] 02/06/2019 12:00:00 eCW2 ([facility] AM EDT Center) [facility] 01/30/2019 12:00:00 eCW2 ([facility] AM EST Center) Outpatient 01/29/2019 12:00:00 Casey Verma AM EST [facility] 01/23/2019 12:00:00 eCW2 ([facility] AM EST Center) [facility] 01/16/2019 12:00:00 eCW2 ([facility] AM EST Center) [facility] 01/07/2019 12:00:00 eCW2 ([facility] AM EST Center) [facility] 01/02/2019 12:00:00 eCW2 ([facility] AM EST Center) [facility] 12/17/2018 12:00:00 eCW2 ([facility] AM EST Center) [facility] 12/13/2018 12:00:00 eCW2 ([facility] AM EST Center) [facility] 12/11/2018 12:00:00 eCW2 ([facility] AM EST Center) [facility] 11/26/2018 12:00:00 eCW2 ([facility] AM EST Center) Outpatient 11/23/2018 12:00:00 Award s (Mental Health AM EST - 06/27/2019 Assoc iation of 12:00:00 AM EDT [facility]) Patient discharged. [facility] 11/22/2018 12:00:00 eCW2 ([facility] AM EST Center) [facility] 11/21/2018 12:00:00 eCW2 ([facility] AM EST Center) [facility] 11/21/2018 12:00:00 eCW2 ([facility] AM EST Center) [facility] 11/21/2018 12:00:00 eCW2 ([facility] AM EST Center) [facility] 11/20/2018 12:00:00 eCW2 ([facility] AM EST Center) [facility] 11/19/2018 12:00:00 eCW2 ([facility] AM EST Center) [facility] 11/19/2018 12:00:00 eCW2 ([facility] AM EST Center) [facility] 11/16/2018 12:00:00 eCW2 ([facility] AM EST Center) [facility] 11/15/2018 12:00:00 eCW2 ([facility] AM EST Center) [facility] 11/14/2018 12:00:00 eCW2 ([facility] AM EST Center) [facility] 11/12/2018 12:00:00 eCW2 ([facility] AM EST Center) [facility] 11/12/2018 12:00:00 eCW2 ([facility] AM EST Center) [facility] 11/07/2018 12:00:00 eCW2 [facility] AM EST Center) [facility] 11/06/2018 12:00:00 eCW2 ([facility] AM EST Center) [facility] 11/06/2018 12:00:00 eCW2 ([facility] AM EST Center) [facility] 11/05/2018 12:00:00 eCW2 ([facility] AM EST Center) [facility] 11/04/2018 12:00:00 eCW2 ([facility] AM EST Center) [facility] 11/04/2018 12:00:00 eCW2 ([facility] AM EST Center) [facility] 11/02/2018 12:00:00 eCW2 ([facility] AM EST Center) [facility] 11/01/2018 12:00:00 eCW2 ([facility] AM EST Center) [facility] 10/31/2018 12:00:00 eCW2 ([facility] AM EST Center) [facility] 10/31/2018 12:00:00 eCW2 ([facility] AM EST Center) [facility] 10/30/2018 12:00:00 eCW2 ([facility] AM EST Center) [facility] 10/29/2018 12:00:00 eCW2 ([facility] AM EST Center) [facility] 10/29/2018 12:00:00 eCW2 ([facility] AM EST Center) [facility] 10/25/2018 12:00:00 eCW2 ([facility] AM EST Center) [facility] 10/24/2018 12:00:00 eCW2 ([facility] AM EST Center) [facility] 10/24/2018 12:00:00 eCW2 ([facility] AM EST Center) [facility] 10/24/2018 12:00:00 eCW2 ([facility] AM EST Center) [facility] 10/24/2018 12:00:00 eCW2 ([facility] AM EST Center) [facility] 10/15/2018 12:00:00 eCW2 ([facility] AM EST Center) [facility] 10/10/2018 12:00:00 eCW2 ([facility] AM EST Center) [facility] 10/09/2018 12:00:00 eCW2 ([facility] AM EST Center) [facility] 10/01/2018 12:00:00 eCW2 ([facility] AM EST Center) [facility] 09/26/2018 12:00:00 eCW2 ([facility] AM EDT Center) [facility] 09/26/2018 12:00:00 eCW2 ([facility] AM EDT Center) [facility] 09/23/2018 12:00:00 eCW2 ([facility] AM EDT Center) [facility] 09/19/2018 12:00:00 eCW2 ([facility] AM EDT Center) [facility] 09/16/2018 12:00:00 eCW2 ([facility] AM EDT Center) [facility] 09/12/2018 12:00:00 eCW2 ([facility] AM EDT Center) [facility] 09/09/2018 12:00:00 eCW2 ([facility] AM EDT Center) [facility] 09/04/2018 12:00:00 eCW2 ([facility] AM EDT Center) [facility] 09/04/2018 12:00:00 eCW2 ([facility] AM EDT Center) [facility] 09/02/2018 12:00:00 eCW2 ([facility] AM EDT Center) [facility] 07/19/2018 12:00:00 eCW2 ([facility] AM EDT Center) [facility] 07/04/2018 12:00:00 eCW2 ([facility] AM EDT Center) [facility] 06/21/2018 12:00:00 eCW2 ([facility] AM EDT Center) [facility] 06/14/2018 12:00:00 eCW2 ([facility] AM EDT Center) [facility] 06/13/2018 12:00:00 eCW2 ([facility] AM EDT Center) [facility] 06/13/2018 12:00:00 eCW2 ([facility] AM EDT Center) [facility] 06/12/2018 12:00:00 eCW2 ([facility] AM EDT Center) [facility] 06/10/2018 12:00:00 eCW2 ([facility] AM EDT Center) [facility] 06/10/2018 12:00:00 eCW2 ([facility] AM EDT Center) [facility] 06/07/2018 12:00:00 eCW2 ([facility] AM EDT Center) [facility] 05/31/2018 12:00:00 eCW2 ([facility] AM EDT Center) [facility] 05/08/2018 12:00:00 eCW2 ([facility] AM EDT Center) [facility] 04/29/2018 12:00:00 eCW2 ([facility] AM EDT Center) [facility] 03/27/2018 12:00:00 eCW2 ([facility] AM EDT Center) [facility] 03/21/2018 12:00:00 eCW2 ([facility] AM EDT Center) [facility] 03/21/2018 12:00:00 eCW2 ([facility] AM EDT Center) [facility] 03/19/2018 12:00:00 eCW2 ([facility] AM EDT Center) [facility] 03/16/2018 12:00:00 eCW2 ([facility] AM EDT Center) [facility] 03/15/2018 12:00:00 eCW2 ([facility] AM EDT Center) [facility] 03/08/2018 12:00:00 eCW2 ([facility] AM EDT Center) Outpatient 03/06/2018 12:00:00 Award s (Mental Health AM EDT - 06/21/2019 [facility] 12:00:00 AM EDT [facility]) Patient discharged. [facility] 02/26/2018 12:00:00 AM eCW2 ([facility] EDT Center) [facility] 02/14/2018 12:00:00 AM eCW2 ([facility] EDT Center) [facility] 02/01/2018 12:00:00 AM eCW2 ([facility] EST Center) [facility] 01/17/2018 12:00:00 AM eCW2 ([facility] EST Center) [facility] 01/17/2018 12:00:00 AM eCW2 ([facility] EST Center) [facility] 12/28/2017 12:00:00 AM eCW2 ([facility] EST Center) [facility] 12/28/2017 12:00:00 AM eCW2 ([facility] EST Center) [facility] 12/22/2017 12:00:00 AM eCW2 ([facility] EST Center) [facility] 12/15/2017 12:00:00 AM eCW2 ([facility] EST Center) [facility] 12/05/2017 12:00:00 AM eCW2 ([facility] EST Center) [facility] 12/05/2017 12:00:00 AM eCW2 ([facility] EST Center) [facility] 12/05/2017 12:00:00 AM eCW2 ([facility] EST Center) [facility] 11/30/2017 12:00:00 AM eCW2 ([facility] EST Center) [facility] 11/29/2017 12:00:00 AM eCW2 ([facility] EST Center) [facility] 11/27/2017 12:00:00 AM eCW2 ([facility]) [facility] 11/16/2017 12:00:00 AM eCW2 ([facility] EST Center) [facility] 11/16/2017 12:00:00 AM eCW2 ([facility] EST Center) [facility] 11/16/2017 12:00:00 AM eCW2 ([facility]) [facility] 11/09/2017 12:00:00 AM eCW2 ([facility] EST Center) [facility] 11/09/2017 12:00:00 AM eCW2 ([facility] EST Center) [facility] 11/09/2017 12:00:00 AM eCW2 ([facility] EST Center) [facility] 11/01/2017 12:00:00 AM eCW2 ([facility]) [facility] 11/01/2017 12:00:00 AM eCW2 ([facility] EST Center) [facility] 10/30/2017 12:00:00 AM eCW2 ([facility] EST Center) [facility] 09/20/2017 12:00:00 AM eCW2 ([facility] EDT Center) [facility] 08/21/2017 12:00:00 AM eCW2 ([facility] EDT Center) [facility] 08/15/2017 12:00:00 AM eCW2 ([facility] EDT Center) [facility] 08/09/2017 12:00:00 AM eCW2 ([facility] EDT Center) [facility] 07/07/2017 12:00:00 AM eCW2 ([facility] EDT Center) [facility] 04/02/2017 12:00:00 AM eCW2 ([facility] EDT Center) [facility] 03/31/2017 12:00:00 AM eCW2 ([facility] EDT Center) [facility] 03/21/2017 12:00:00 AM eCW2 ([facility] EDT Center) [facility] 03/20/2017 12:00:00 AM eCW2 ([facility] EDT Center) Immunizations Vaccine Date Status Description Data Source(s) This CVX code 09/05/2019 completed Influenza 09/05/2019, [facility] allows reporting 12:00:00 AM EDT Vaccine 08/31/2015 [facility] when [facility] [employer] [facility] [employer] is unknown (for example, when recording a Influenza vaccination when noted on a vaccination card) MMR 07/01/2019 completed MMR 07/01/2019, [facility] 12:00:00 AM EDT 06/03/2019 [facility] MMR 06/03/2019 completed MMR 07/01/2019, [facility] 12:00:00 AM EDT 06/03/2019 [facility] Tdap 05/22/2019 completed Tdap 05/22/2019 [facility] 12:[facility] AM ED[facility] New in 2011. IIV4 08/09/2017 02:02:00 PM EDT completed eCW2 ([facility]) PPD (Intradermal) 03/31/2017 11:38:00 AM EDT completed eCW2 ([facility]) IIV3. This 08/22/2016 completed Influenza 08/22/2016 [facility] vaccine code is 12:00:00 AM EDT Vaccine PF Luci one of two which Hea lt replace CVX 15, [employer] influenza, split virus. This CVX code 08/31/2015 completed Influenza 09/05/2019, [facility] allows reporting 12:00:00 AM EDT Vaccine 08/31/2015 Luci of a vaccination [facility] when formulation [employer] is unknown (for example, when recording a Influenza vaccination when noted on a vaccination card) No Known Immunizations completed eCW2 ([facility]) No Known Immunizations completed eCW2 ([facility]) No Known Immunizations completed eCW1 ([facility]) No Known Immunizations completed eCW1 ([facility] No Known Immunizations completed eCW1 ([facility]) No Known Immunizations completed eCW1 ([facility]) No Known Immunizations completed eCW1 ([facility] No Known Immunizations completed eCW1 ([facility]) No Known Immunizations completed eCW1 ([facility]) No Known Immunizations completed eCW1 ([facility] No Known Immunizations completed eCW1 ([facility]) No Known Immunizations completed eCW1 ([facility] No Known Immunizations completed eCW1 ([facility]) No Known Immunizations completed eCW2 ([facility]) No Known Immunizations completed eCW2 ([facility]) No Known Immunizations completed eCW2 ([facility]) No Known Immunizations completed eCW2 ([facility]) No Known Immunizations completed eCW2 ([facility]) No Known Immunizations completed eCW2 ([facility]) No Known Immunizations completed eCW2 ([facility]) No Known Immunizations completed eCW2 ([facility]) No Known Immunizations completed eCW2 ([facility]) No Known Immunizations completed eCW2 ([facility]) No Known Immunizations completed eCW2 ([facility]) No Known Immunizations completed eCW2 ([facility]) No Known Immunizations completed eCW2 ([facility]) No Known Immunizations completed eCW2 ([facility]) No Known Immunizations completed eCW2 ([facility]) No Known Immunizations completed eCW2 ([facility]) No Known Immunizations completed eCW2 ([facility]) No Known Immunizations completed eCW2 ([facility]) No Known Immunizations completed eCW2 ([facility]) No Known Immunizations completed eCW2 ([facility]) No Known Immunizations completed eCW2 ([facility]) No Known Immunizations completed eCW2 ([facility]) No Known Immunizations completed eCW2 ([facility]) No Known Immunizations completed eCW2 ([facility]) No Known Immunizations completed eCW2 ([facility]) No Known Immunizations completed eCW2 ([facility]) No Known Immunizations completed eCW2 ([facility]) No Known Immunizations completed eCW2 ([facility]) No Known Immunizations completed eCW2 ([facility]) No Known Immunizations completed eCW2 ([facility]) No Known Immunizations completed eCW2 ([facility]) No Known Immunizations completed eCW2 ([facility]) No Known Immunizations completed eCW2 ([facility]) No Known Immunizations completed eCW2 ([facility]) No Known Immunizations completed eCW2 ([facility]) No Known Immunizations completed eCW2 ([facility]) No Known Immunizations completed eCW2 ([facility]) No Known Immunizations completed eCW2 ([facility]) No Known Immunizations completed eCW2 ([facility]) No Known Immunizations completed eCW2 ([facility]) No Known Immunizations completed eCW2 ([facility]) No Known Immunizations completed eCW2 ([facility]) No Known Immunizations completed eCW2 ([facility]) Medications Medication Brand Start Product Dose Route Administrative Pharmacy michelle Indications Reaction Description Data Name Date Form Instructions Instructions Source(s) Levothyroxi Levoth 06/26/ suspend Levoth yroxin eCW2 ne Sodium yroxin 2019 ed e Sodium 75 ( [facility] 0.075 MG e 12:00: MCG Health Oral Tablet Sodium 00 AM Cente r) Levothyroxi 75 MCG EDT ne Sodium 75 MCG PARoxetine [id number] 04/14/ active [facility] (PAXIL) 10 775-30 2019 [...] tablet tablet Unknown complet eCW2 Medications ed ([facility]) Unknown complet eCW2 Medications ed ([facility]) Unknown complet eCW2 Medications ed ([facility]) Unknown complet eCW2 Medications ed ([facility]) Unknown complet eCW2 Medications ed ([facility]) Klonopin UNK active Klonopin eCW1 ([facility]) Paxil UNK active eCW1 ([facility]) Sertraline Zoloft active 2 tabs eCW 2 100 MG Oral 100 MG ([facility] Tablet [facility] [Zoloft] [place]) Zoloft 100 MG Unknown complet eCW2 Medications ed ([facility]) Clonazepam Klonop active 1 tablet e CW2 0.5 MG Oral in 0.5 ([facility] Tablet MG [facility] [Klonopin] [place]) Klonopin 0.5 MG Paxil UNK active Paxil eCW1 ([facility]) Zinc UNK active eCW2 ([facility]) Vitamin D UNK active eCW2 ([facility]) Unknown complet eCW2 Medications ed ([facility]) linaclotide Linzes 1.0 active Linzess 2 90 eCW1 0.29 MG s 290 {caps MCG (Digestive Oral MCG ule} [facility] [address] ) MCG Unknown complet eCW2 Medications ed ([facility]) Unknown complet eCW1 Medications ed ([facility]) Risperidone Risper active 1 1/2 tab let eCW2 1 MG Oral axel 1 ([facility] Tablet MG [facility] [Risperdal] [place]) Risperdal 1 MG Unknown complet eCW2 Medications ed ([facility]) Klonopin UNK active Klonopin eCW1 ([facility]) Luvox CR UNK suspend Luvox CR eCW1 ed ([facility]) Unknown complet eCW2 Medications ed ([facility]) Unknown complet eCW1 Medications ed ([facility]) Risperdal UNK active eCW1 ([facility]) Paxil UNK active eCW1 ([facility]) Escitalopra Lexapr active 1 tablet eCW2 m 5 MG Oral o 5 MG ([facility] [Lexapro] [place]) Lexapro 5 MG Hydroxyzine HydrOX 1.0 active HydrOXYzi ne eCW2 Hydrochlori Yzine {tabl HCl 25 MG ( [facility] de 25 MG HCl 25 et_as Health Oral Tablet MG _need Center) HydrOXYzine ed} HCl 25 MG Clonazepam Klonop active 1 tablet e CW2 0.5 MG Oral in 0.5 ([facility]t [facility] [Klonopin] [place]) Klonopin 0.5 MG Sertraline Zoloft active 2 tabs eCW 2 100 MG Oral 100 MG ([facility] [Zoloft] [place]) Zoloft 100 MG Luvox CR UNK suspend Luvox CR eCW1 ed ([facility]) Risperdal UNK active Risperdal eCW 1 ([facility]) Risperdal UNK active Risperdal eCW 1 ([facility]) Risperidone Risper 1.0 active Risperdal eCW2 0.5 MG Oral axel {tabl 0.5 MG ([facility] Tablet 0.5 MG et} Health [Risperdal] [place]) Risperdal 0.5 MG Clonazepam Klonop active 1 tablet e CW2 1 MG Oral in 1 0.5 mg ([facility] Tablet MG tablet Health [Klonopin] [place]) Klonopin 1 MG Unknown complet eCW2 Medications ed ([facility]) linaclotide Linzes active 1 capsule eCW1 0.29 MG s 290 (Digestive Oral MCG [facility] [address] ) MCG Unknown complet eCW2 Medications ed ([facility]) Clonazepam Klonop active Klonopin 1 eCW2 1 MG Oral in 1 MG ([facility] Tablet MG [facility] [Klonopin] [place]) Klonopin 1 MG linaclotide Linzes 1.0 active Linzess 2 90 eCW1 0.29 MG s 290 {caps MCG (Digestive Oral MCG ule} [facility] [[facility]] [facility] [address] ) MCG Risperidone Risper active 1 tablet eCW2 2 MG Oral axel 2 ([facility] Tablet MG [facility] [Risperdal] [place]) Risperdal 2 MG Zinc UNK active eCW2 ([facility]) Vitamin B12 UNK active eCW2 ([facility]) Unknown complet eCW2 Medications ed ([facility]) Unknown complet eCW1 Medications ed ([facility]) Unknown complet eCW1 Medications ed ([facility]) Klonopin UNK active eCW1 ([facility]) Paxil UNK active Paxil eCW1 ([facility]) Vitamin B12 UNK active eCW2 ([facility]) Luvox CR UNK suspend Luvox CR eCW1 ed ([facility]) Unknown complet eCW2 Medications ed ([facility]) Unknown complet eCW2 Medications ed ([facility]) Vitamin B12 UNK active eCW2 ([facility]) Clonazepam Klonop active 1 tablet e CW2 0.5 MG Oral in 0.5 ([facility] Tablet MG [facility] [Klonopin] [place]) Klonopin 0.5 MG Multivitami UNK active eCW2 n ([facility]) Risperdal UNK active Risperdal eCW 1 ([facility]) Luvox CR UNK suspend Luvox CR eCW1 ed ([facility]) Clonazepam Klonop active 1 tablet e CW2 0.5 MG Oral in 0.5 ([facility] Tablet MG [facility] [Klonopin] [place]) Klonopin 0.5 MG Klonopin UNK active Klonopin eCW1 ([facility]) Unknown complet eCW1 Medications ed ([facility]) Unknown complet eCW2 Medications ed ([facility]) Unknown complet eCW2 Medications ed ([facility]) Luvox CR UNK suspend eCW1 ed ([facility]) Unknown complet eCW2 Medications ed ([facility]) Sertraline Zoloft active 2 tabs eCW 2 100 MG Oral 100 MG ([facility] [Zoloft] [place]) Zoloft 100 MG Zinc UNK active Zinc eCW2 ([facility]) Risperdal UNK active Risperdal eCW 1 ([facility]) Unknown complet eCW2 Medications ed ([facility]) linaclotide Linzes 1.0 active Linzess 2 90 eCW1 0.29 MG s 290 {caps MCG (Digestive Oral MCG ule} [facility] [[facility]] [address] ) MCG Multivitami UNK active eCW2 n ([facility]) linaclotide Linzes 1.0 active Linzess 2 90 eCW1 0.29 MG s 290 {caps MCG (Digestive Oral MCG ule} [facility] [[facility]] [address] ) MCG Clonazepam Klonop active 1 tablet e CW2 0.5 MG Oral in 0.5 ([facility] Tablet MG [facility] [Klonopin] [place]) Klonopin 0.5 MG Vitamin D UNK active eCW2 ([facility]) Luvox CR UNK active eCW1 ([facility]) Risperdal UNK active eCW1 ([facility]) Unknown complet eCW2 Medications ed ([facility]) Vitamin D UNK active eCW2 ([facility]) Zinc UNK active eCW2 ([facility]) Sertraline Zoloft active 2 tabs eCW 2 100 MG Oral 100 MG ([facility] [Zoloft] [place]) Zoloft 100 MG Multivitami UNK active eCW2 n ([facility]) Multivitami UNK active eCW2 n ([facility]) Unknown complet eCW2 Medications ed ([facility]) Unknown complet eCW2 Medications ed ([facility]) Vitamin B12 UNK active eCW2 ([facility]) Sertraline Zoloft active 2 tabs eCW 2 100 MG Oral 100 MG ([facility]Zoloft] Center) Zoloft 100 MG Unknown complet eCW2 Medications ed ([facility]) Klonopin UNK active Klonopin eCW1 ([facility]) Luvox CR UNK suspend Luvox CR eCW1 ed ([facility]) Unknown complet eCW2 Medications ed ([facility]) Unknown complet eCW2 Medications ed ([facility]) Unknown complet eCW2 Medications ed ([facility]) Unknown complet eCW2 Medications ed ([facility]) Risperdal UNK active Risperdal eCW 1 ([facility]) Risperidone Risper active 1 tablet eCW2 2 MG Oral axel 2 ([facility] [Risperdal] [place]) Risperdal 2 MG Multivitami UNK active eCW2 n ([facility]) Risperidone Risper active 1 1/2 tab let eCW2 1 MG Oral axel 1 ([facility] [Risperdal] [place]) Risperdal 1 MG Clonazepam Klonop active 1 tablet e CW2 0.5 MG Oral in 0.5 ([facility] Tablet MG [facility] [Klonopin] [place]) Klonopin 0.5 MG Unknown complet eCW2 Medications ed ([facility]) Vitamin D UNK active eCW2 ([facility]) Vitamin D UNK active eCW2 ([facility]) Unknown complet eCW1 Medications ed ([facility]) Unknown complet eCW2 Medications ed ([facility]) Escitalopra Lexapr active 1 tablet eCW2 m 5 MG Oral o 5 MG ([facility] [Lexapro] [place]) Lexapro 5 MG Multivitami UNK active eCW2 n ([facility]) Risperidone Risper active 1 1/2 tab let eCW2 2 MG Oral axel 2 ([facility] [Risperdal] [place]) Risperdal 2 MG Paxil UNK active Paxil eCW1 ([facility]) Vitamin D UNK active Vitamin D eCW 2 ([facility]) Unknown complet eCW2 Medications ed ([facility]) Unknown complet eCW2 Medications ed ([facility]) Unknown complet eCW2 Medications ed ([facility]) linaclotide Linzes 1.0 active Linzess 2 90 eCW1 0.29 MG s 290 {caps MCG (Digestive Oral MCG ule} [facility] [[facility]] [address] ) MCG Unknown complet eCW2 Medications ed ([facility]) Klonopin UNK active eCW1 ([facility]) linaclotide Linzes active 1 capsule eCW1 0.29 MG s 290 (Digestive Oral MCG [facility] [[facility]] [address] ) MCG Paxil UNK active Paxil eCW1 ([facility]) Klonopin UNK active Klonopin eCW1 ([facility]) Risperdal UNK active Risperdal eCW 1 ([facility]) Luvox CR UNK suspend Luvox CR eCW1 ed ([facility]) Zinc UNK active eCW2 ([facility]) Linzess UNK active eCW1 ([facility]) No Known complet eCW2 Medications ed ([facility]) Unknown complet eCW1 Medications ed ([facility]) Vitamin D UNK active eCW2 ([facility]) Luvox CR UNK suspend eCW1 ed ([facility]) Unknown complet eCW2 Medications ed ([facility]) Unknown complet eCW2 Medications ed ([facility]) Unknown complet eCW2 Medications ed ([facility]) gabapentin gabape 100 Oral active Take 100 m g Bon 100 MG Oral ntin mg by mouth [facility] C[facility] (NEURO nightly. Charit y gabapentin NTIN) Health (NEURONTIN) 100 mg [employer] 100 mg capsul capsule e Paxil UNK active Paxil eCW1 ([facility]) Zinc UNK active eCW2 ([facility]) Klonopin UNK active Klonopin eCW1 ([facility]) Multivitami UNK active eCW2 n ([facility]) Risperidone Risper active 1 1/2 tab let eCW2 1 MG Oral axel 1 ([facility] Tablet [facility] [Risperdal] [place]) Risperdal 1 MG Unknown complet eCW1 Medications ed ([facility]) Risperidone Risper active 1 1/2 tab let eCW2 1 MG Oral axel 1 ([facility] Tablet [facility] [Risperdal] [place]) Risperdal 1 MG Vitamin D UNK active eCW2 ([facility]) Zinc UNK active eCW2 ([facility]) Multivitami UNK active Multivitami n eCW2 n ([facility]) Unknown complet eCW2 Medications ed ([facility]) linaclotide Linzes 1.0 active Linzess 2 90 eCW1 0.29 MG s 290 {caps MCG (Digestive Oral MCG ule} [facility] [[facility]] [address] ) MCG Vitamin B12 UNK active eCW2 ([facility]) Vitamin B12 UNK active eCW2 ([facility]) Vitamin B12 UNK active eCW2 ([facility]) Paxil UNK active Paxil eCW1 (Digestive Disease [facility]) Zinc UNK active eCW2 ([facility]) Klonopin UNK active eCW1 ([facility]) Risperdal UNK active eCW1 (Digestive Disease [facility]) Insurance Providers Payer name Policy type Policy ID Covered Covered green party's Policy P nikki / Coverage green party ID relationship to Wills Inf ormation type wills [facility] [id number] NON CAP Dental Sliding A SELF Fee - Nominal [employer] [facility] Z [id number] SELF [id number] [facility] [id number] SELF [id number] Healthcare Medicaid BBA D [id number] SELF [id number] Z [facility] I [id number] SELF [id number] [facility] MEDICARE [id number] SP [id number] [facility] [id number] CARE MEDICAID [facility] [id number] CARE MEDICAID Care Medicaid [place] [id number] CARE MEDICAID [place] Managed [id number] CARE MEDICAID Care Medicaid [place] [id number] CARE MEDICAID [place] Managed [id number] CARE MEDICAID Care Medicaid [place]ARE [id number] Patient is [id number] [place] [id number] [place] [id number] [place] [id number] MEDICAID [place] Managed [id number] MEDICAID Care Medicaid Problems, Conditions, and Diagnoses Code Display Name Description Problem Type Effective Data Dates Source(s) E03.9 Acquired Acquired Problem 06/26/2020 eCW2 ([facility] hypothyroidism hypothyroidism 12:00:00 AM [facility] EDT Center) E29.1 [id number] Hypogonadism in male Problem 06/23/2020 eCW2 ([facility] 12:00:00 AM [facility] EDT Center) E29.1 [id number] Hypotestosteronemia in Problem 06/22/2020 eCW2 ([facility] male 12:00:00 AM [facility] EDT Center) R10.31 980853552 Right lower quadrant Problem 04/16/2020 eCW1 abdominal pain 12:00:00 AM (Digestiv e EDT Disease [facility]) R10.31 552781283 Right lower quadrant Problem 04/16/2020 eCW1 abdominal pain 12:00:00 AM (Digestiv e EDT [facility]) R10.32 919497998 Left lower quadrant Problem 03/18/2020 eCW1 pain 12:00:00 AM (Digestive EDT [facility]) R10.32 996387288 Left lower quadrant Problem 03/18/2020 eCW1 pain 12:00:00 AM (Digestive EDT [facility]) R14.0 743666719 Abdominal bloating Problem 01/23/2020 eCW1 12:00:00 AM (Digestive EST [facility]) R14.0 682610058 Abdominal bloating Problem 01/23/2020 eCW1 12:00:00 AM (Digestive EST [facility]) K59.09 698100049 Chronic constipation Problem 11/28/2019 eCW1 12:00:00 AM (Digestive EST [facility]) K58.1 060152390 Irritable bowel Problem 11/28/2019 eCW1 syndrome with 12:00:00 AM (Digestive constipation EST Disease [facility]) K59.09 035925665 Chronic constipation Problem 11/28/2019 eCW1 12:00:00 AM (Digestive EST Disease [facility]) K58.1 480382805 Irritable bowel Problem 11/28/2019 eCW1 syndrome with 12:00:00 AM (Digestive constipation EST Disease [facility]) 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 03/06/2019 [facility] disability disability 12:00:00 AM [facility] F60.9 47149590 Personality disorder, Problem 09/02/2018 eCW 2 ([place] unspecified 12:00:00 AM Health EDT Center) F60.9 62837139 Personality disorder, Problem 09/02/2018 eCW 2 ([facility] unspecified 12:00:00 AM Health EDT Center) F60.9 Personality Personality disorder, Problem 09/02/2018 eC W2 ([place] disorder, unspecified 12:00:00 AM Health unspecified EDT Center) E66.9 [id number] Obesity (BMI Problem 06/13/2018 eCW2 (R efu[facility] 30.0-34.9) 12:00:00 AM Health EDT Center) E66.9 [id number] Obesity (BMI Problem 06/13/2018 eCW2 (R efuah [...] 30.0-34.9) 12:00:00 AM Health EDT Center) F41.8 588239826 Depression with Problem 11/27/2017 eCW2 ([facility] anxiety 12:00:00 AM Health EST Center) E67.8 53185339 Hypervitaminosis Problem 11/27/2017 eCW2 (Re [facility] 12:00:00 AM Health EST Center) F41.8 169887342 Depression with Problem 11/27/2017 eCW2 ([facility] anxiety 12:00:00 AM Health EST Center) E67.8 09481994 Hypervitaminosis Problem 11/27/2017 eCW2 (Re fu[facility] 12:00:00 [...] anxiety 12:00:00 AM Health EST Center) F41.9 72273095 Anxiety Problem 11/16/2017 eCW2 ([facility] 12:00:00 AM Health EST Center) F41.9 87565890 Anxiety Problem 11/16/2017 eCW2 ([facility] 12:00:00 AM Health EST Center) F41.9 Anxiety Anxiety Problem 11/16/2017 eCW2 ([facility] 12:00:00 AM Health EST Center) F41.9 Anxiety Anxiety Problem 11/16/2017 eCW2 ([facility] 12:00:00 AM Health EST Center) F41.9 Anxiety Anxiety Problem 11/16/2017 eCW2 ([facility] 12:00:00 AM Health EST Center) F82 929292545 Motor skills disorder Problem 11/01/2017 eCW 2 ([facility] 12:00:00 AM Health EST Center) F82 116411180 Motor skills disorder Problem 11/01/2017 eCW 2 [...] disorder 12:00:00 AM Health EST Center) K21.9 832071197 Gastroesophageal Problem 09/20/2017 eCW2 ([place] [facility] reflux disease, 12:00:00 AM Health esophagitis presence EDT Cent er) not specified N40.1 689883094 Benign prostatic Problem 09/20/2017 eCW2 ([place] hyperplasia with lower 12:00:00 AM H ealth urinary tract symptoms EDT Ce nter) N40.1 689018449 Benign prostatic Problem 09/20/2017 eCW2 ([place] [facility] hyperplasia with lower 12:00:00 AM H ealth urinary tract symptoms EDT Ce nter) K21.9 393045765 Gastroesophageal Problem 09/20/2017 eCW2 ([place] [facility] reflux [...] urinary tract symptoms EDT Center) symptoms E55.9 10820776 Vitamin D deficiency Problem 08/09/2017 eCW2 ([facility] 12:00:00 AM Health EDT Center) E55.9 12420679 Vitamin D deficiency Problem 08/09/2017 eCW2 ([facility] 12:00:00 AM Health EDT Center) E55.9 Vitamin D Vitamin D deficiency Problem 08/09/2017 eCW2 ([place] deficiency 12:00:00 AM Health EDT Center) E55.9 Vitamin D Vitamin D deficiency Problem 08/09/2017 eCW2 ([place] deficiency 12:00:00 AM Health EDT Center) F32.9 19403278 Depressive disorder, Problem 05/25/2017 eCW2 ([facility] not elsewhere 12:00:00 AM Health classified EDT Center) F84.0 74893664 Autistic continuum Problem 05/25/2017 eCW2 ( [facility] 12:00:00 AM Health EDT Center) F32.9 58846315 Depressive disorder, Problem 05/25/2017 eCW2 ([facility] not elsewhere 12:00:00 AM Health classified EDT Center) F84.0 29849545 Autistic continuum Problem 05/25/2017 eCW2 ( [place] [...] Health elsewhere classified EDT Center) classified F39 51645546 Mood disorder Problem 03/20/2017 eCW2 (Refua h 12:00:00 AM Health EDT Center) K59.00 78159173 Constipation, Problem 03/20/2017 eCW2 (Refua h unspecified 12:00:00 AM Health constipation type EDT Center) F39 61646563 Mood disorder Problem 03/20/2017 eCW2 (Ref[facility] h 12:00:00 AM Health EDT Center) K59.00 92419011 Constipation, Problem 03/20/2017 eCW2 (Refua h unspecified [...] EDT Center) F90.0 Attention deficit Attention deficit 66059052 01/19/2016 [facility] hyperactivity hyperactivity disorder 12:00:00 A M Luci disorder (ADHD), (ADHD), [facility]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 F41.9 Anxiety Anxiety 81878953 01/19/2016 [facility] 12:00:00 AM [facility] [employer] Z01.818 Encounter for other Encounter for other Diagnosis 020 [facility] - Good preprocedural preproced[facility] N50.812 Left testicular Left testicular pain Diagnosis 04/27/2020 [facility] pain 10:44:16 AM [facility] [employer] N45.1 Epididymitis Epididymitis Diagnosis 10/14/2019 [place] [facility] 01:01:34 PM [facility] N50.819 Testicular pain, Testicular pain, Diagnosis 07/25/2019 [facility] unspecified unspecified 01:24:24 PM [facility] [employer] F41.8 Other specified OTHER SPECIFIED Diagnosis 07/11/2019 [place] anxiety disorders ANXIETY DISORDERS 03:50:00 PM Hospital EDT N50.819 Testicular pain, TESTICULAR PAIN, Diagnosis 07/11/2019 [place] unspecified UNSPECIFIED 03:50:00 PM Hospital EDT N45.2 Orchitis ORCHITIS Diagnosis 07/11/2019 [facility] 03:50:00 PM Hospital EDT R10.32 Left lower quadrant LEFT LOWER QUADRANT Diagnosis 019 [facility] pain PAIN 03:50:00 PM Hospital EDT N50.812 Left testicular Left testicular pain Diagnosis 06/27/2019 [facility] - [facility] Surgeries/Procedures Procedure Description Date Indications Data Source(s) AMB POC AMB POC Routine 06/22/2020 Restrictive 06/22/2020 Restri ctive Bon XRAY XRAY 10:53 AM EDT lung disease 10:53:00 AM melvina ng disease [facility] CHEST 2 CHEST 2 EDT [facility] [employer] Restrictive lung disease HC REF HC REF Routine 06/19/2020 06/19/2020 [facility] SARS-COV-2 HIGH SARS-COV-2 HIGH 1:05 PM EDT 01:0 5:00 PM EDT [facility] THROUGHPUT THROUGHPUT He alth System I nc Eligible professional attests 04/16/2020 12:00:00 AM E DT eCW1 (Digestive Disease to documenting in the medical [facility]) record they obtained, updated, or reviewed the patient's current medications CURRENT TOBACCO NON-USER CAD 04/16/2020 12:00:00 AM ED T eCW1 (Digestive Disease CAP COPD PV DM [facility]) DISCHRG MEDS RECONCILED 01/23/2020 12:00:00 AM EST eCW1 (Digestive Disease W/CURRENT MED LIST [facility]) Bmi is documented within 01/23/2020 12:00:00 AM EST eCW1 (Digestive Disease normal parameters and no Ass [facility]ciates [facility]) follow-up plan is required Normal blood pressure reading 01/23/2020 12:00:[address] eCW1 (Digestive Disease documented, follow-up not [facility] [place]) required URINLS DIP AMB POC Routine 10/14/2019 Orchalgia 10/14/2019 Left Bon STICK/TABLET URINALYSIS 1:16 PM EST Left 06:16:00 PM epididymitisOrchalgia [facility] REAGNT DIP STICK epididymitis EST C harity NON-AUTO MANUAL W/ Healt h [employer] Left epididymitis Orchalgia US SCROTUM/TESTICLES US SCROTUM/TESTICLES STAT 06/27/2019 06/27/2019 [facility] 5:56 PM EDT 09:56:19 PM [facility] [employer] URINALYSIS W/ RFLX URINALYSIS W/ RFLX STAT 06/27/2019 06/27/2019 [facility] MICROSCOPIC MICROSCOPIC 5:16 PM EDT 09:16:00 PM [email or web address] CULTURE, URINE CULTURE, URINE STAT 06/27/2019 019 [facility] 5:15 PM EDT 09:15:00 PM [facility] Rapid Strep 09/26/2018 12:00:00 [facility] [place] Culture for Beta 09/26/2018 12:00:00 [facility] [place]) No Known procedures No Known procedures e CW2 ([facility]) No Known procedures No Known procedures e CW2 ([facility]) No Known procedures No Known procedures e CW[facility] No Known procedures No Known procedures e CW1 ([facility] No Known procedures No Known procedures e CW1 ([facility] No Known procedures No Known procedures e CW1 ([facility] No Known procedures No Known procedures e CW1 ([facility] No Known procedures No Known procedures e CW1 ([facility] No Known procedures No Known procedures e CW1 ([facility] No Known procedures No Known procedures e CW1 ([facility] No Known procedures No Known procedures e CW1 ([facility] No Known procedures No Known procedures e CW2 ([facility]) No Known procedures No Known procedures e CW2 ([facility]) No Known procedures No Known procedures e CW2 ([facility]) No Known procedures No Known procedures e CW2 ([facility]) No Known procedures No Known procedures e CW2 ([facility]) No Known procedures No Known procedures e CW2 ([facility]) No Known procedures No Known procedures e CW2 ([facility]) No Known procedures No Known procedures e CW2 ([facility]) No Known procedures No Known procedures e CW2 ([facility]) No Known procedures No Known procedures e CW2 ([facility]) No Known procedures No Known procedures e CW2 ([facility]) No Known procedures No Known procedures e CW2 ([facility]) No Known procedures No Known procedures e CW2 ([facility]) No Known procedures No Known procedures e CW2 ([facility]) No Known procedures No Known procedures e CW2 ([facility]) No Known procedures No Known procedures e CW2 ([facility]) No Known procedures No Known procedures e CW2 ([facility]) No Known procedures No Known procedures e CW2 ([facility]) No Known procedures No Known procedures e CW2 ([facility]) No Known procedures No Known procedures e CW2 ([facility]) No Known procedures No Known procedures e CW2 ([facility]) No Known procedures No Known procedures e CW2 ([facility]) No Known procedures No Known procedures e CW2 ([facility]) No Known procedures No Known procedures e CW2 ([facility]) No Known procedures No Known procedures e CW2 ([facility]) No Known procedures No Known procedures e CW2 ([facility]) No Known procedures No Known procedures e CW2 ([facility]) No Known procedures No Known procedures e CW2 ([facility]) No Known procedures No Known procedures e CW2 ([facility]) No Known procedures No Known procedures e CW2 ([facility]) No Known procedures No Known procedures e CW2 ([facility]) No Known procedures No Known procedures e CW2 ([facility]) No Known procedures No Known procedures e CW2 ([facility]) No Known procedures No Known procedures e CW2 ([facility]) No Known procedures No Known procedures e CW2 ([facility]) No Known procedures No Known procedures e CW2 ([facility]) No Known procedures No Known procedures e CW2 ([facility]) No Known procedures No Known procedures e CW2 ([facility]) No Known procedures No Known procedures e CW2 ([facility]) No Known procedures No Known procedures e CW2 ([facility]) No Known procedures No Known procedures e CW2 ([facility]) No Known procedures No Known procedures e CW2 ([facility]) Results ID Date Data Source [id number] 08/10/2020 11:33:00 AM EDT [facility] Name Value Range Interpretation Description Data Sup porting Code Source(s) Document(s ) SARS [facility] coronavirus 2 RNA [facility] and reported by [facility]. ID Date Data Source [id number] 08/06/2020 08:45:00 AM EDT [facility] Name Value Range Interpretation Description Data Sup porting Code Source(s) Document(s ) SARS [facility] coronavirus 2 RNA This lab was ordered by [facility] and reported by [facility]. ID Date Data Source [id number] 08/04/2020 11:38:00 AM EDT [facility] Name Value Range Interpretation Description Data Sup porting Code Source(s) Document(s ) SARS [facility] coronavirus 2 RNA This lab was ordered by [facility] and reported by [facility]. ID Date Data Source [id number] 07/31/2020 11:20:00 AM EDT [facility] Name Value Range Interpretation Description Data Sup porting Code Source(s) Document(s ) SARS [facility] coronavirus 2 RNA This lab was ordered by [facility] and reported by [facility]. ID Date Data Source [id number] 07/27/2020 09:46:00 AM EDT [facility] Name Value Range Interpretation Description Data Sup porting Code Source(s) Document(s ) SARS [facility] coronavirus 2 RNA This lab was ordered by REUBEN agudelo [facility] and reported by [facility]. ID Date Data Source [id number] 07/24/2020 08:50:00 AM EDT [facility] Name Value Range Interpretation Description Data Sup porting Code Source(s) Document(s ) SARS [facility] coronavirus 2 RNA This lab was ordered by [facility] and reported by [facility]. ID Date Data Source [id number] 07/20/2020 09:59:00 AM EDT [facility] Name Value Range Interpretation Description Data Sup porting Code Source(s) Document(s ) SARS [facility] coronavirus 2 RNA This lab was ordered by [facility] RADHA agudelo [facility] and reported by [facility]. ID Date Data Source [id number] 07/16/2020 10:40:00 AM EDT [facility] Name Value Range Interpretation Description Data Sup porting Code Source(s) Document(s ) SARS [facility] coronavirus 2 RNA [facility] and reported by [facility]. ID Date Data Source [id number] 07/13/2020 11:50:00 AM EDT [facility] Name Value Range Interpretation Description Data Sup porting Code Source(s) Document(s ) SARS [facility] coronavirus 2 RNA This lab [facility] and reported by [facility]. ID Date Data Source [id number] 06/20/2020 01:50:13 PM EDT [facility] Name Value Range Interpretation Code Description Data Catalina rce(s) Supporting Document(s ) CJ FARIAS [facility] Testing Performed by:MARGARITO Osorio [id number] REPORT FROM REFERENCE LAB ID Date Data Source [id number] 02/27/2020 12:00:00 AM EDT [facility] Name Value Range Interpretation Code Description Data Catalina rce(s) Supporting Document(s ) 2019-nCoV [facility] RNA XXX PANKAJ+probe- Imp This lab was ordered by [facility] and reported by [employer]. ID Date Data Source [id number] 07/10/2019 10:45:28 AM EDT [facility] CT abdomen and pelvis with [...] Supporting Document(s ) ID Date Data Source [id number] 07/10/2019 10:26:48 AM EDT [facility] l EXAM: SCROTAL ULTRASOUND WITH DUPLEX DOP PLERHistory: Left scrotal pain. History of testicular torsion status post jotlpif03 years ago.Findings: The right testicle measures 5.37 [...] Supporting Document(s ) ID Date Data Source [id number] 07/12/2019 05:11:00 AM EDT [facility] Name Value Range Interpretation Description Data Sup porting Code Source(s) Document(s ) Chlamydia Negative Negative [facility] trachomatis, [facility] PANKAJ Neisseria Negative Negative [facility] gonorrhoeae, [facility] PANKAJ ID Date Data Source [id number] 07/10/2019 12:35:00 AM EDT [facility] Name Value Range Interpretation Description Data Sup porting Code Source(s) Document(s ) U COLOR Yellow [facility] U APPEAR Clear [facility] U GLUC Negative NEG [facility] MG/DL [facility] U BILI Negative [facility] U KETONE Negative NEG [facility] MG/DL [facility] U SG >=1.030 1.003-1. [facility] 030 [facility] U BLOOD Negative [facility] U PH 7.5 5.0-7.5 [facility] U PROTEIN Negative NEG [facility] MG/DL [facility] U UROBILI 1.0 EU/DL 0.2-1.0 [facility] U NITRITE Negative [facility] U LEUK EST Negative [facility] ID Date Data Source [id number] 07/09/2019 10:14:00 PM EDT [facility] Name Value Range Interpretation Description Data Sup porting Code Source(s) Document(s ) GLUCOSE 108 70-110 [facility] MG/DL Hospital BUN 11 MG/DL 6-22 [facility] CREATININE 0.70 0.50-1.2 [facility] MG/DL 0 Hospital SODIUM 143 135-145 [facility] MMOL/L Hospital POTASSIUM 4.1 3.5-5.1 [facility] mmol/L Hospital CHLORIDE 106 98-106 [facility] MMOL/L Hospital CO2 27 20-29 [facility] MMOL/L Hospital CALCIUM 9.8 8.7-10.7 [facility] mg/dL Hospital TOT PROT 7.5 G/DL 6.1-8.0 [facility] ALBUMIN 4.9 G/DL 3.5-5.8 [facility] GLOBULIN 2.6 G/DL 1.3-4.5 [facility] BILIRUBIN,TOTA 0.4 0.3-1.2 [facility] L mg/dL Hospital ALK PHOS 39 U/L 50-136 Below low normal [facility] SGOT (AST) 23 U/L 8-42 [facility] SGPT (ALT) 29 U/L 30-65 Below low normal [facility] eGFR >60 ">60.0" [facility] mL/min./1.73 square meter eGFR IF >60 ">60.0" [facility] mL/min./1.73 square meter BILIRUBIN,DIRECT <0.2 MG/DL 0.0-0.3 [facility] al ID Date Data Source [id number] 07/09/2019 10:15:00 PM EDT [facility] l Name Value Range Interpretation Code Description Data Catalina rce(s) Supporting Document(s ) LIPASE 61 U/L 13-60 Above high normal [facility] al ID Date Data Source [id number] 07/09/2019 09:55:00 PM EDT [facility] l Name Value Range Interpretation Description Data Sup porting Code Source(s) Document(s ) WHITE BLOOD 7.3 4.0-11.5 [facility] RBC 4.53 4.60-6.2 Below low normal [address] HEMOGLOBIN 13.6 14.0-18. Below low normal [facility] g/dL [address] [place] [address] HEMATOCRIT 40.5 % 42.0-52. Below low normal [address] MCV 89.4 FL 80.0-94. [address] MCH 30.0 PG 27.0-31. [address] MCHC 33.6 33.0-37. [facility] G/DL [address] [place] [address] RDW 13.0 % 11.5-14. [address] PLT 235 140-440 [facility] K/[facility] MPV 9.9 FL 7.4-10.4 [facility] NEUT% 55 % [facility] IMM GRAN% 1 % [facility] LYMPH% 32 % [facility] MONO% 8 % [facility] EOS% 4 % [facility] BASO% 0 % [facility] NEUT ABS 4.0 1.7-8.6 [facility] X10E3/uL Hospital IMM GRAN ABS 0.1 0.0-0.1 [facility] x10E3/uL Hospital LYMPH ABS 2.3 0.8-5.9 [facility] X10E3/uL Hospital MONO ABS 0.6 0.0-1.0 [facility] X10E3/uL Hospital EOS ABS 0.3 0.0-0.7 [facility] X10E3/uL Hospital BASO ABS 0.0 0.0-0.2 [facility] X10E3/uL Hospital ID Date Data Source [id number] 06/27/2019 08:35:20 PM EDT [facility] [id number] [facility] EMERGENCY DEPARTMENT [address] [place] [phone] ---Harvey Troncoso (Male) [id number] CHERI 4 ED Dispo:DISCHARGE Chief Complaint: Testicle Pain Diagnosis: Pain in left testicle [] Current Providers: Attending: Amna Kimbrough Primary Nurse: Amna Alba; BERNADETTE PinedaN: [id number] [employer] [phone] - [facility] [employer] MrnMRN: [id number] [employer] [phone] - [facility] [employer] Age SexDOB 1985 AGE 34 SEX Male Primary Care Provider: Karen Sharp MD Brwlekbhq: (No Known Allergies)Date Reviewed: 06/27/2019Reviewe d by: Feliciano Pineda RN - Review CompleteED Provider Notes: All notesHNO ID: [id number]: Jannie Junior MDService: Emergency MedicineAuthor Type: [...] file Gets together: Not on file Attends congregation service: Not on file Active member of [...] US scrotumLabs and imaging reviewed. [place].Pain has resolved.D/c home. F/U urology.7:24 PM: [...] MDclonazePAM (KLONOPIN) 0.5 mg tablet 04/18/18 Provider, HistoricalrisperiDONE (RISPERDAL) 2 mg t ablet 01/04/16 Provider, Jannie Mar MD I, Cheryl Malina, MD, am serving as a sc ribe to document servicespersonally performed by Jannie Junior MD based on my observation and trista sullivan's statements to me.IRima Cheryl, MD, attest that the person(s) noted above, a cting as myscribe(s) noted above, has observed my performance of the services and hasdocum ented them in accordance with my direction. I have personallyreviewed the above information and have ordered and reviewed thediagnostic studies, unless otherwise noted.ED Orders GABAPENTIN 100 MG CAP [#[id number]] Priority: Routine Class: Historical Med [id number] URINALYSIS W/ RFLX MICROSCOPIC [#[id number]] Priority: STAT Class: E R Collect Standing Order Information Remaining Occurrences:0/1 Interval:ONE TI ME Last released:06/27/2019 Released orders: MonJun 27, 2019 4:41 PM by: FELICIANO PINEDA [id number] URINALYSIS W/ RFLX MICROSCOPIC [#[id number]] Prior ity: STAT Class: ER Collect Specimen Source: Urine Specimen Collected: 06/27/2019 5:16 PM Resulting Agency: [facility] Test ID: UA Released on: 06/27/2019 4:41 PM [id number] CULTURE, URINE [#[id number]] Priority: STAT Class: E R Collect Specimen Source: Clean catch Standing Order Information Remaining Occurre nces:0/1 Interval:ONE TIME Last released:06/27/2019 Released orders : Sandra Jun 27, 2019 4:41 PM by: FELICIANO PINEDA Reason for Culture -> Pelvi c pain [id number] CULTURE, URINE [#[id number]] Priority: STAT Class: E R Collect Specimen Source: Clean catch Specimen Collected: 06/27/2019 5:15 PM Resultin g Agency: [facility] Test ID: GAS METER REPAIRER Reason for Culture -> Pelvic pa in Released on: 06/27/2019 4:41 PM [id number] US SCROTUM/TESTICLES [#[id number]] Priority: STAT Class: Hospital Performed Standing Order Information Tonia wills Occurrences:0 Interval:ONE TIME Last released:06/27/2019 Released orders : Sandra Jun 27, 2019 5:02 PM by: JANNIE JUNIOR Reason for Exam -> pain, left testi tolu [id number] US SCROTUM/TESTICLES [#[id number]] Priority: STAT Class: H ospital Performed Specimen Collected: 06/27/2019 6:00 PM Resulting Agency: [facility] Test ID: [id number] Reason for Exam -> pain, left testicle Released on: 06/27/2019 5:0 2 PMHarvey Troncoso MR#: [id number] * Rm: IRASEMA-OTFHt: 5' 2" Wt: 165 lb Code: Not on file Iso:Diagnosis:Allergies: No Known Allergies -------- Current as of: 06/27/192034 ---This patient has no MAR information. ED Current OP Medicationsgabapentin (NEURONTIN) 100 mg capsuleSig:Take 100 m g by mouth nightly.Dispense Amount:Start Date:End Date:Doc. Provider: Mahi, Kirstin Ogden zePAM (KLONOPIN) 0.5 mg tabletSig:Dispense Amount:Start Date:04/18/2018End Date:Doc. Provider: Efrain PerdomorisperiDONE (RISPERDAL) 2 mg tabletSig:Dispense Amount:Start Date:01/04End Date:Doc. Provider: Provider, Historical ED Prescriptions None on FileFollow-up InformationFollow-up With:Miguel Fabian, MDDetails:Schedule an appointment as soon as possible for a visitComments:UROLOGYCont act Info:[address] [place] [phone] With:[facility] DEPARTMENTDetails:Comments:As needed, If symptoms worsenContact Info:[address] [place] [phone] Name Value Range Interpretation Code Description Data Catalina rce(s) Supporting Document(s ) ID Date Data Source [id number] 06/27/2019 07:57:45 PM EDT [facility] Pt discharged & given discharge instruct ions by Dr Junior. Name Value Range Interpretation Code Description Data Catalina rce(s) Supporting Document(s ) ID Date Data Source [id number] 06/27/2019 07:24:23 PM EDT [facility] [id number] yo M c/o left testicle pain [...] strain: Not on file Food insecurity: W shayey: Not on file Inability: Not on file [...] file Gets together: Not on file Attends congregation service: Not on file Active member of [...] His behavior is normal.Nursing note and vitals reviewed.MDMProStacy Vasquez Cheryl, MD, reviewed the patient's past history, [...] advised to followup with PMD and/or specialist. Tonya wallacent/guardian instructed to return to the ERif symptoms [...] Name Value Range Interpretation Code Description Data [facility] rce(s) Supporting Document(s ) ID Date Data Source [id number] 06/27/2019 06:44:12 PM EDT [facility] Pt to ultrasound. Name Value Range Interpretation Code Description Data [facility](s) Supporting Document(s ) ID Date Data Source [id number] 06/27/2019 06:04:14 PM EDT [facility] US SCROTUM/TESTICLESClinical Data: pain, left testicle history [...] Supporting Document(s ) ID Date Data Source [id number] 06/27/2019 06:39:36 PM EDT [facility] Name Value Range Interpretation Description Data Sup porting Code Source(s) Document(s ) Color of Urine YEL [facility] - [facility] Appearance of CLEAR [facility] - Urine [facility] Specific gravity 1.001 1.003-1. Below low normal [facility] - of Urine by 030 [facility] Refractometry [facility] pH of Urine by 6.5 4.6-8.0 [facility] - Test strip [facility] Protein NEG [facility] - [Mass/volume] in [facility] Urine by Test Hospital strip Glucose NEG [facility] - [Mass/volume] in [facility] Urine by Hospital Automated test strip Ketones NEG [facility] - [Presence] in Community Urine by Hospital Automated test strip Bilirubin.total NEG [facility] - [Presence] in [facility] Urine [facility] Hemoglobin NEG [facility] - [Presence] in Community Urine by Test Hospital strip Urobilinogen 0.2 0.2-1.0 [facility] - [Presence] in EU/dL Community Urine by Hospital Automated test strip Nitrite NEG [facility] - [Presence] in Community Urine by Hospital Automated test strip Leukocyte NEG [facility] - esterase Community [Presence] in Hospital Urine by Automated test strip ID Date Data Source [id number] 06/28/2019 07:04:40 PM EDT [facility] Name Value Range Interpretation Description Data Sup porting Code Source(s) Document(s ) [facility] Hospital Bacteria BSS - identified in Community Unspecified Hospital specimen by Culture ID Date Data Source [id number] 06/27/2019 05:10:08 PM EDT [facility] Pt seen & evaluated by Dr Junior. Name Value Range Interpretation Code Description Data Catalina rce(s) Supporting Document(s ) ID Date Data Source [id number] 06/27/2019 04:57:49 PM EDT [facility] Pt ambulated to to void. Urine specim ans sent to lab. Name Value Range Interpretation Code Description Data Catalina rce(s) Supporting Document(s ) ID Date Data Source [id number] 06/27/2019 04:37:01 PM EDT [facility] Pt BIBA from home with c/o left testicle pain that started today. Pt with hx oftesticular torsion. Pt denies any test icular swelling at this time. Name Value Range Interpretation Code Description Data Catalina rce(s) Supporting Document(s ) ID Date Data Source CT ABDOMEN/PELVIS W PO AND IV 04/30/2019 12:33:25 AM EDT eCW 2 ([facility]) CONTRAST.0 Name Value Range Interpretation Description Data Sup porting Code Source(s) Document(s ) Laboratory CT eCW2 ([facility] studies (set) ABDOMEN/PELVIS Health W PO AND IV Center) CONTRAST ID Date Data Source Throat Culture for 09/26/2018 12:00:00 AM EDT eCW2 ([facility]) Beta-Strep.0 Name Value Range Interpretation Code Description Data Supporting Source(s) Document(s ) NEGATIVE NEGATIVE 24HR THROAT eCW2 ([facility]) NEGATIVE NEGATIVE 48HR THROAT eCW2 ([facility]) Procedure Social History Code Duration Value Status Description Data Source(s ) Alcohol intake 06/22/2020 Current completed Current Casey Hernandez s 12:00:00 AM non-drinker non-drinker of [facility] EDT of alcohol alcohol (finding) [facility] (finding) Tobacco use and 06/22/2020 Never used completed Never used [facility] exposure 12:00:00 AM [employer] [facility] Smoking 06/22/2020 Never smoker completed Never smoker [place] 12:00:00 AM [employer] [facility] [employer] Smoking 05/15/2020 Never Smoker completed Never Smoker eCW1 ([facility] Smoking 05/15/2020 Never Smoker completed Never Smoker eCW1 ([facility] Smoking 05/15/2020 Never Smoker completed Never Smoker eCW1 ([facility] 12:00:[facility] Smoking 05/15/2020 Never Smoker completed Never Smoker eCW1 ([facility] 12:00:00 AM [facility]) Smoking 05/15/2020 Never Smoker completed Never Smoker eCW1 ([facility] 12:00:00 AM [facility]) Smoking 05/15/2020 Never Smoker completed Never Smoker eCW1 ([facility] 12:00:00 AM [facility]) Alcohol intake 11/05/2019 Current completed Current [place] 12:00:00 AM non-drinker non-drinker of [employer] of alcohol alcohol (finding) [facility] (finding) Tobacco use and 11/05/2019 Never used completed Never used [facility] exposure 12:00:00 AM [employer] [facility] Smoking 11/05/2019 Never smoker completed Never smoker [place] 12:00:00 AM [employer] [facility] Alcohol intake 10/14/2019 Current completed Current [place] 12:00:00 AM non-drinker non-drinker of [employer] of alcohol alcohol (finding) [facility] (finding) Smoking 10/14/2019 Never smoker completed Never smoker [place] 12:00:00 AM [employer] [facility] Smoking 09/30/2019 Never smoker completed Never smoker [place] 12:00:00 AM [employer] [facility] Smoking 07/25/2019 Never smoker completed Never smoker [place] 12:00:00 AM [employer] [facility] Smoking 06/27/2019 Never smoker completed Never smoker [place] 12:00:00 AM [facility] [employer] Never Smoker completed Never Smoker eCW1 ([facility]) Never Smoker completed Never Smoker eCW1 ([facility]) Never Smoker completed Never Smoker eCW1 ([facility]) Never Smoker completed Never Smoker eCW1 ([facility]) Never Smoker completed Never Smoker eCW1 ([facility]) Smoking Unknown if completed Unknown if ever eCW2 ([facility] ) Smoking Unknown if completed Unknown if ever eCW2 ([facility] ) Never Smoker completed Never Smoker eCW1 ([facility]) Smoking Unknown if completed Unknown if ever eCW2 ([facility] ) Smoking Unknown if completed Unknown if ever eCW1 (Dig estive ever smoked smoked [facility]) Smoking Unknown if completed Unknown if ever eCW1 (Dig estive ever smoked smoked [facility]) Smoking Unknown if completed Unknown if ever eCW1 (Dig estive ever smoked smoked [facility]) Smoking Unknown if completed Unknown if ever eCW1 (Dig estive ever smoked smoked [facility]) Smoking Unknown if completed Unknown if ever eCW1 (Dig estive ever smoked smoked [facility]) Smoking Unknown if completed Unknown if ever eCW1 (Dig estive ever smoked smoked [facility]) Smoking Unknown if completed Unknown if ever eCW1 (Dig estive ever smoked smoked [facility]) Smoking Unknown if completed Unknown if ever eCW1 (Dig estive ever smoked smoked [facility]) Smoking Unknown if completed Unknown if ever eCW1 (Dig estive ever smoked smoked [facility]) Smoking Unknown if completed Unknown if ever eCW1 (Dig estive ever smoked smoked [facility]) Smoking Unknown if completed Unknown if ever eCW1 (Dig estive ever smoked smoked [facility]) Smoking Unknown if completed Unknown if ever eCW2 ([facility] smoked [facility] ) Alcohol intake No completed [employer] Alcohol intake No completed [employer] Alcohol intake No completed [employer] Smoking Unknown if completed Unknown if [...] Smoking Never Smoker completed Never Smoker eCW2 ([facility]) Smoking Unknown if completed Unknown if ever eCW2 (Ref [facility]a [facility] smoked smoked [facility] ) Smoking Unknown if completed Unknown if ever eCW2 ([facility] Smoking Unknown if completed Unknown if ever eCW2 ([facility] Smoking Never Smoker completed Never Smoker eCW2 ([facility]) Smoking Unknown if completed Unknown if ever eCW2 ([facility] Smoking Unknown if completed Unknown if ever eCW2 ([facility] Smoking Unknown if completed Unknown if ever eCW2 ([facility] Smoking Unknown if completed Unknown if ever eCW2 ([facility] ) Smoking Unknown if completed Unknown if ever eCW2 ([facility] ) Smoking Unknown if completed Unknown if ever eCW2 ([facility] ) Smoking Unknown if completed Unknown if ever eCW2 ([facility] ) Smoking Unknown if completed Unknown if ever eCW2 ([facility] ) Smoking Unknown if completed Unknown if ever eCW2 ([facility] ) Smoking Unknown if completed Unknown if ever eCW2 ([facility] Smoking Unknown if completed Unknown if ever eCW2 ([facility] ) Smoking Unknown if completed Unknown if ever eCW2 ([facility] Smoking Unknown if completed Unknown if ever eCW2 ([facility] ) Vital Signs ID Date Data Source UNK Name Value Range Interpretation Code Description Data Source(s) Oxygen saturation 98 % 98 % [facility] ours in Arterial blood Luci [employer] by Pulse [employer] Body mass index 30.90 kg/m2 30.90 kg/m2 [facility] ours (BMI) [Ratio] Luci Hea [employer] [facility] [employer] Body weight 81.647 kg 81.647 kg [facility] Body height 162.6 cm 162.6 cm [facility] Body temperature 36.5 Dolores 36.5 Dolores Casey Morenoo urs [employer] [facility] Heart rate 80 /min 80 /min [facility] Diastolic blood 65 mm[Hg] 65 mm[Hg] Casey [facility] rs pressure [facility] Systolic blood 100 mm[Hg] 100 mm[Hg] [place] pressure [employer] Diastolic blood 69 mm[Hg] 69 mm[Hg] eCW1 (Dig estive pressure [facility]) Systolic blood 105 mm[Hg] 105 mm[Hg] eCW1 (Dige stive pressure [facility]) Heart rate 74 /min 74 /min eCW1 (Digestiv e [facility]) Body mass index 31.88 kg/m2 31.88 kg/m2 eCW1 (D igestive (BMI) [Ratio] [facility]) Body weight 180 [lb_av] 180 [lb_av] eCW1 (Diges tive Measured [facility]) Body height 63 [in_us] 63 [in_us] eCW1 (Digesti ve [facility]) Diastolic blood 68 mm[Hg] 68 mm[Hg] eCW1 (Dig estive pressure [facility]) Systolic blood 100 mm[Hg] 100 mm[Hg] eCW1 (Dige stive pressure [facility]) Heart rate 78 /min 78 /min eCW1 (Digestiv e Disease [facility]) Body mass index 31.88 kg/m2 31.88 kg/m2 eCW1 (D igestive (BMI) [Ratio] Disease [facility]) Body weight 180 [lb_av] 180 [lb_av] eCW1 (Diges tive Measured Disease [facility]) Body height 63 [in_us] 63 [in_us] eCW1 (Digesti ve Disease [facility]) Oxygen saturation 98 % 98 % [facility] in Arterial blood [employer] by [employer]ulse o[employer] [facility] [employer] Body mass index 29.18 kg/m2 29.18 kg/m2 [facility] ours (BMI) [Ratio] [employer] a [employer] [facility] [employer] Body weight 77.111 kg 77.111 kg [facility] [employer] Body height 162.6 cm 162.6 cm [facility] [employer] Heart rate 105 /min 105 /min [facility] [employer] Diastolic blood 68 mm[Hg] 68 mm[Hg] [facility] pressure [employer] Inc Systolic blood 110 mm[Hg] 110 mm[Hg] [place] pressure [facility] Oxygen saturation 98 % 98 % [facility] ours in Arterial blood [facility] by Pulse oximetry [facility] [employer] Body mass index 29.18 kg/m2 29.18 kg/m2 [facility] ours (BMI) [Ratio] [employer] Body weight 77.111 kg 77.111 kg Bon UICO,Inc Inc Body height 162.6 cm 162.6 cm [facility] [employer] Heart rate 68 /min 68 /min [facility] [employer] [facility] [employer] Diastolic blood 74 mm[Hg] 74 mm[Hg] [facility] pressure [employer] [facility] [employer] Systolic blood 106 mm[Hg] 106 mm[Hg] [place] pressure [employer] Oxygen saturation 98 % 98 % [facility] ours in Arterial blood [facility] by Pulse oximetry [facility] [employer] Body mass index 29.18 kg/m2 29.18 kg/m2 [facility] ours (BMI) [Ratio] [employer] Inc Body weight 77.111 kg 77.111 kg Bon UICO[employer] Inc Body height 162.6 cm 162.6 cm Bon [employer]ICO[employer] Inc Heart rate 78 /min 78 /min [facility] [facility] Diastolic blood 70 mm[Hg] 70 mm[Hg] [facility] pressure [employer] [facility] [employer] Systolic blood 100 mm[Hg] 100 mm[Hg] [place] pressure [employer] Oxygen saturation 99 % 99 % [facility] ours in Arterial blood [facility] by Pulse oximetry [facility] [employer] Body mass index 30.18 kg/m2 30.18 kg/m2 [facility] ours (BMI) [Ratio] [employer] Inc Body weight 74.844 kg 74.844 kg Bon UICO,Inc Inc Body height 157.5 cm 157.5 cm Bon UICO[employer]Inc Inc Respiratory rate 18 /min 18 /min [facility] [employer] [facility] [employer] Body temperature 36.94 Dolores 36.94 Dolores [facility] urs [employer] [facility] [employer] Heart rate 69 /min 69 /min Bon [employer] [facility] [employer] Diastolic blood 68 mm[Hg] 68 mm[Hg] [facility] pressure [employer] Systolic blood 108 mm[Hg] 108 mm[Hg] [place] pressure [employer] [facility] [employer] Body mass index 31.27 kg/m2 31.27 kg/m2 eCW2 ([facility] (BMI) [Ratio] [facility]) Body weight 171 [lb_av] 171 [lb_av] [facility] Body height 62 [in_us] 62 [in_us] eCW2 ([facility]) Body temperature 97.7 [degF] 97.7 [degF] eCW2 ( [facility]) Body mass index 29.26 kg/m2 29.26 kg/m2 eCW2 ([facility] (BMI) [Ratio] [facility]) Body weight 160 [lb_av] 160 [lb_av] eCW2 ([facility] Body height 62 [in_us] 62 [in_us] eCW2 ([facility]) Body mass index 29.26 kg/m2 29.26 kg/m2 eCW2 ([facility] (BMI) [Ratio] [facility]) Body weight 160 [lb_av] 160 [lb_av] eCW2 ([facility] Measured [facility]) Body height 62 [in_us] 62 [in_us] eCW2 ([facility]) Body temperature 98.0 [degF] 98.0 [degF] eCW2 ( [facility]) Body mass index 29.26 kg/m2 29.26 kg/m2 eCW2 ([facility] (BMI) [Ratio] [facility]) Body weight 160 [lb_av] 160 [lb_av] eCW2 ([facility] Measured [facility]) Body height 62 [in_us] 62 [in_us] eCW2 ([facility]) Body height 62 [in_us] 62 [in_us] eCW2 ([facility]) Body mass index 29.26 kg/m2 29.26 kg/m2 eCW2 ([facility] (BMI) [Ratio] [facility]) Body weight 160 [lb_av] 160 [lb_av] eCW2 ([facility] Measured [facility]) Body height 62 [in_us] 62 [in_us] eCW2 ([facility]) Body temperature 98.2 [degF] 98.2 [degF] eCW2 ( [facility]) Body mass index 30.54 kg/m2 30.54 kg/m2 eCW2 (R efua (BMI) [Ratio] [facility]) Body weight 167 [lb_av] 167 [lb_av] eCW2 ([facility]) Body height 62 [in_us] 62 [in_us] eCW2 ([facility]) Body temperature 97.4 [degF] 97.4 [degF] eCW2 ( [facility]) ID Date Data Source [id number] 07/11/2019 03:50:17 PM EDT [facility] l Name Value Range Interpretation Code Description Data Source(s) Weight 74.84 KG 74.84 KG [facility] Height 157.48 CM 157.48 CM [facility] Weight 74.84 KG 74.84 KG [facility] Height 157.48 CM 157.48 CM [facility] status N N Grant yeh [Interpretation] - Reported Patient Treatment Plan of [...] 12:00:00 AM EDT [facility] Fluvoxamine Maleate 100 MG 07/01/2019 [facility] Oral Tablet 12:00:00 AM EDT [facility] Hydrocortisone 25 MG/ML 05/29/2019 [facility] Topical Cream 12:00:00 AM EDT [facility] Clindamycin 10 MG/ML 05/29/2019 [facility] Topical Lotion 12:00:00 AM EDT [facility] Lidocaine 40 MG/ML Topical 04/25/2019 [facility] Cream 12:00:00 AM EDT [facility] Polyethylene Glycol 3350 - 11/16/2018 e CW2 ([facility] 12:00:00 AM EST Center) Escitalopram 20 [...] m Inc lamotrigine 100 MG Oral 01/04/2016 [facility] Tablet 12:00:00 AM EST [facility] Clonazepam 1 MG Oral eCW2 ([facility] Tablet [Klonopin] Center) Hydroxyzine Hydrochloride eC W2 ([facility] 25 MG Oral Tablet Center) Risperidone 0.5 MG Oral eCW2 ([facility] Tablet [Risperdal] Center) gabapentin 100 MG Oral [facility] linaclotide 0.29 MG Oral eCW 1 ([facility] C[facility]ule [Linzess] [facility] [place])
== END 2020-08-13 12:25 | disposition home or self-care (01) ==
LOC: FECT 09:40
PROVIDERS: ATTEND Psychiatry & Neurology Psychiatry
PROC: GZB4ZZZ Other Electroconvulsive Therapy (ICD-10-PCS; principal; 2020-08-13 08:00)
DX: F32.9 Major depressive disorder, single episode, unspecified (principal)
CPT/HCPCS: 90870; 94760; U0003

== ENCOUNTER → 2020-09-17 | Day surgery (SDC) | payer MEDICARE ==
--- OUTSIDE RECORDS SUMMARY | 2020-09-10 12:54 | XMS ---
:1985 Author Organization [facility] Support Name Relationship Address Phone UE, UNEMPLOYED Unavailable Unavailable Unavailable UE Unavailable Unavailable Unavailable GENI BARBA MOTHER [address] [facility] [place] [place] [address] JEREMIAS BARBA Mother Unavailable jeremias barba Unavailable [address] [place] [address] Aba, Mr. & Mrs. Unavailable 15 [facility] [place] [address] Aba, Mr. & Mrs. Unavailable 15 [facility] [place] [address] Re-disclosure Warning The records that you are [...] is protected by Article 27-F of the [facility] Public Health law. If you continue you may haveaccess to information: Regarding HIV / AIDS; Provided by facilities licensed or operated by the [facility] Office of Mental Health; or Provided by the [facility] Office for People With Developmental Disabilities. If such information is present, then the following [facility] mandated warning applies: This information has been [...] law may result in a fine or fci sentence or both. A general authorization for the release of medical or other information is NOT sufficient authorization for further disclosure. Encounters Encounter Providers Location Date Indications Data Source(s ) (WEB) Digestive [facility] 08/27/2020 eCW1 ([facility] 12[facility] ED[facility]) (WEB) Digestive Disease 07/29/2020 eCW1 ([facility], 12:00:00 [facility] ED[facility]) (WEB) Digestive Disease 07/29/2020 eCW1 ([facility], 12:00:00 AM [facility] ED[facility]) (WEB) Digestive Disease 07/29/2020 eCW1 ([facility], 12:00:00 AM [facility] ED[facility]) (WEB) Digestive Disease 07/29/2020 eCW1 ([facility], 12:00:00 AM [facility] ED[facility]) (WEB) Digestive Disease 07/29/2020 eCW1 ([facility], 12:00:00 AM [facility] EDT [facility]) Outpatient 06/22/2020 Casey meyers 10:00:00 [facility]T - 06/22/2020 10:40:49 AM EDT Patient discharged. Outpatient 06/19/2020 09:00:00 [facility] - Good AM EDT [facility] Outpatient 06/19/2020 12:00:00 [facility] - Good AM EDT - 06/19/2020 [facility] 11:59:00 PM EDT [facility] 06/18/2020 12:00 :00 eCW2 ([facility] EDT Center) Outpatient 06/08/2020 10:45:00 [facility] 05/15/2020 12:00:00 eCW1 ([facility], AM EDT [facility]) Outpatient 05/11/2020 03:39:27 [facility]2020 08:56:37 [facility] Outpatient 05/05/2020 10:09:22 [facility] Dig[facility] Disease 04/30/2020 12:00:00 eCW1 ([facility] Outpatient 04/27/2020 09:45:00 Bon S ecorajani Luci AM EDT - 04/27/2020 [facility] 10:50:28 AM EDT Patient discharged. Digestive Disease Digestive Disease 04/16/2020 12:00:00 eCW1 ([facility]) Digestive Disease Digestive Disease 04/15/2020 12:00:00 eCW1 ([facility] AM EDT [facility] [place]) Digestive Disease Digestive Disease 04/06/2020 12:00:00 eCW1 ([facility], AM EDT [facility]) Digestive Disease Digestive Disease 03/25/2020 12:00:00 eCW1 ([facility] ED[facility]) Digestive Disease Digestive Disease 03/24/2020 12:00:00 eCW1 ([facility] AM EDT [facility]) Digestive Disease Digestive Disease 03/18/2020 12:00:00 eCW1 ([facility], AM EDT [facility]) Digestive Disease Digestive Disease 03/17/2020 12:00:00 eCW1 ([facility], AM EDT [facility]) Digestive Disease Digestive Disease 02/27/2020 12:00:00 eCW1 ([facility], AM ED[facility] [place]) Digestive Disease Digestive Disease 02/07/2020 12:00:00 eCW1 ([facility] AM EDT [facility]) Digestive Disease Digestive Disease 01/28/2020 12:00:00 eCW1 ([facility], AM EST [facility]) Digestive Disease Digestive Disease 01/23/2020 12:00:00 eCW1 ([facility], AM EST [facility]) Digestive Disease Digestive Disease 01/23/2020 12:00:00 eCW1 ([facility], AM EST [facility]) Outpatient 01/09/2020 11:20:59 [facility] Digestive Disease Digestive Disease 01/08/2020 12:00:00 eCW1 ([facility], AM EST [facility] [place]) Outpatient 01/07/2020 02:00:00 [facility] Outpatient 12/31/2019 01:00:00 [facility] Digestive Disease Digestive Disease 12/31/2019 12:00:00 eCW1 ([facility] AM EST [facility]) Digestive Disease Digestive Disease 12/24/2019 12:00:00 eCW1 ([facility], AM EST [facility]) Digestive Disease Digestive Disease 12/08/2019 12:00:00 eCW1 ([facility], AM EST [facility]) [facility] 12/01/2019 12:00 :00 eCW2 ([facility] EST Center) Digestive Disease Digestive Disease 11/29/2019 12:00:00 eCW1 ([facility] AM EST [facility]) Digestive Disease Digestive Disease 11/28/2019 12:00:00 eCW1 ([facility], AM EST [facility]) Outpatient 11/26/2019 12:57:23 [facility] PM [facility] Digestive Disease Digestive Disease 10/31/2019 12:00:00 eCW1 ([facility] AM EST [facility]) Digestive Disease Digestive Disease 10/31/2019 12:00:00 eCW1 ([facility] AM EST [facility]) [facility] 10/23/2019 12:00 :00 eCW2 ([facility] EST Center) [facility] 10/16/2019 12:00 :00 eCW2 ([facility] EST Center) [facility] 10/16/2019 12:00 :00 eCW2 ([facility] EST [place]) Outpatient 10/14/2019 01:00:00 [facility]i PM EST - 10/14/2019 [facility] 01:41:51 PM EST Patient discharged. Outpatient 10/10/2019 04:00:00 PM [facility] 10/09/2019 12:00:00 AM eCW2 ([facility] EST Center) Outpatient 10/08/2019 09:48:59 AM [facility] Outpatient 10/08/2019 09:40:24 AM [facility] Outpatient 09/30/2019 09:45:00 AM [facility] Luci EST - 09/30/2019 [facility] 11:14:07 AM EST Patient discharged. (TEL) [facility] 09/24/2019 12:00:00 AM eCW2 ([facility] EDT Center) (TEL) [facility] 09/01/2019 12:00:00 AM eCW2 ([facility] EDT Center) Outpatient 08/14/2019 01:15:00 PM [facility] Outpatient 08/07/2019 03:00:00 PM [facility] Outpatient 08/02/2019 05:00:03 PM [facility] 07/31/2019 12:00:00 AM eCW2 ([facility] EDT Center) Outpatient 07/25/2019 01:30:00 PM [facility] n [facility] EDT - 07/25/2019 [facility] 01:50:19 PM EDT Patient discharged. [facility] 07/24/2019 12:00:00 eCW2 ([facility]) Outpatient 07/22/2019 10:15:00 [facility] AM EDT [facility] 07/17/2019 12:00:00 [facility] 07/15/2019 09:30:00 [facility] AM EDT [facility] Emergency 06/27/2019 04:21:47 Groin Pain [facility] - Good PM EDT - 06/27/2019 [facility] 08:35:00 PM EDT Groin Pain Patient discharged. Outpatient 11/23/2018 12:00:00 AM EST - Awards ([facility] 06/27/2019 12:00:00 AM EDT of [facility]) Patient discharged. Immunizations Vaccine Date Status Description Data Source(s) This CVX code 09/05/2019 completed Influenza 09/05/2019, Casey Smith allows reporting 12:00:00 AM EDT Vaccine 08/31/2015 Luci of a vaccination [facility] when formulation [facility] is unknown (for example, when recording a Influenza vaccination when noted on a vaccination card) Medications Medication Brand Start Product Dose Route [facility] [place] [facility] Indications Reaction Description Data Name Date Form Instructions Instructions Source(s) Levothyroxi Levoth 06/26/ active Levothy roxin eCW2 ne Sodium yroxin 2020 e Sodium 75 ( [place] 0.075 MG e 12:00: [facility] Oral Tablet Sodium 00 AM Cente r) Levothyroxi 75 MCG EDT ne Sodium 75 MCG Levothyroxi Levoth 06/26/ suspend Levoth yroxin eCW2 ne Sodium yroxin 2020 ed e Sodium 75 ( [place] 0.075 MG e 12:00: [facility] Oral Tablet Sodium 00 AM Cente r) Levothyroxi 75 MCG EDT ne Sodium 75 MCG PARoxetine 32844- 04/14/ active Bon (PAXIL) 10 775-30 2020 [facility] mg tablet 12:00: Luci 00 AM Health EDT [facility] doxycycline doxycy 09/29/ aborted B on hyclate 100 arteaga 2019 [facility] MG Oral (VIBRA 12:00: Luci Tablet -TABS) 00 AM Health doxycycline 100 mg EDT [facility] (VIBRA-TABS tablet ) 100 mg tablet Naproxen naprox 07/24/ active Bon 375 MG Oral en 2019 [facility] Tablet (NAPRO 12:00: [facility] naproxen SYN) 00 AM Health (NAPROSYN) 375 mg EDT [facility] 375 mg tablet tablet Lidocaine lidoca 07/17/ aborted Bon 40 MG/ML ine 2018 [facility] Topical (XYLOC 12:00: [facility] Cream JEFFERSON) 00 AM Health lidocaine 4 % EDT [facility] (XYLOCAINE) topica 4 % topical l cream cream Clindamycin clinda 05/29/ aborted B on 10 MG/ML mycin 2018 [facility] Topical (CLEOC 12:00: [facility] Lotion IN T) 00 AM Health clindamycin 1 % EDT System I nc (CLEOCIN T) lotion 1 % lotion Insurance Providers Payer name Policy type Policy ID Covered Covered green party's Policy P nikki / Coverage green party ID relationship to Raman Inf ormation type raman [facility] [id number] SP [id number] MEDICARE ADV PLAN [facility] [id number] SP [id number] NON CAP MEDICARE [id number] SP [id number] [place]AV[place]ICK [id number] SP [id number] MEDICARE ADV PLAN MEDICARE [id number] SP [id number] Dental Sliding A SELF Fee - Nominal [facility] Z [id number] SELF [id number] [facility] [id number] SELF [id number] Healthcare Medicaid BBA D [id number] SELF [id number] [facility] I [id number] SELF [id number] [facility] [id number] CARE MEDICAID [place] Managed [id number] CARE MED[place]ID Care Medicaid [place]AV[place] [id number] CARE MEDICAID [place] MAV[place]ICK Managed [id number] CARE [place]ID Care [place] [id number] CARE [place]ID [place] Managed [id number] CARE MEDICAID Care Medicaid [place] CARE [id number] Patient is [id number] [place] [id number] [place] [id number] [place]ARE [id number] MEDICAID [place] CARE Managed [id number] MEDICAID Care Medicaid Problems, Conditions, and Diagnoses Code Display Name Description Problem Type Effective Data Dates Source(s) E03.9 Acquired Acquired Problem 06/26/2020 eCW2 ([place] hypothyroidism hypothyroidism 12:00:00 AM [facility] EDT Center) E29.1 [id number] Hypogonadism in male Problem 06/23/2020 eCW2 ([place] 12:00:00 AM [facility] EDT Center) E29.1 [id number] Hypotestosteronemia in Problem 06/22/2020 eCW2 ([place] male 12:00:00 AM [facility] EDT Center) R10.31 [id number] Right lower quadrant Problem 04/16/2020 eCW1 abdominal pain 12:00:00 AM (Digestiv e EDT [facility]) R10.31 795483362 Right lower quadrant Problem 04/16/2020 eCW1 abdominal pain 12:00:00 AM (Digestiv e EDT [facility]) R10.32 143615859 Left lower quadrant Problem 03/18/2020 eCW1 pain 12:00:00 AM (Digestive EDT [facility]) R10.32 623716071 Left lower quadrant Problem 03/18/2020 eCW1 pain 12:00:00 AM (Digestive EDT [facility]) R14.0 [id number] Abdominal bloating Problem 01/23/2020 eCW1 12:00:00 AM (Digestive EST [facility]) R14.0 [id number] Abdominal bloating Problem 01/23/2020 eCW1 12:00:00 AM (Digestive EST [facility]) K59.09 [id number] Chronic constipation Problem 11/28/2019 eCW1 12:00:00 AM (Digestive EST Disease [facility]) K58.1 [id number] Irritable bowel Problem 11/28/2019 eCW1 syndrome with 12:00:00 AM (Digestive constipation EST Disease [facility]) K59.09 744534209 Chronic constipation Problem 11/28/2019 eCW1 12:00:00 AM (Digestive EST Disease [facility]) K58.1 [id number] Irritable bowel Problem 11/28/2019 eCW1 syndrome with 12:00:00 AM (Digestive constipation EST Disease [facility]) Z01.818 Encounter for Encounter for other Diagnosis 06/19/2020 [facility] other preprocedural 01:00:00 PM [facility] preprocedural examination EDT Hospital examination N50.812 Left testicular Left testicular pain Diagnosis 04/27/2020 [facility] pain 10:44:16 AM Luci [employer] N45.1 Epididymitis Epididymitis Diagnosis 10/14/2019 [place] 01:01:34 PM [employer] N50.819 Testicular pain, Testicular pain, Diagnosis 07/25/2019 [facility] unspecified unspecified 01:24:24 PM Luci [employer] Surgeries/Procedures Procedure Description Date Indications Data Source(s) AMB POC AMB POC Routine 06/22/2020 Restrictive 06/22/2020 Restri ctive Bon XRAY XRAY 10:53 AM EDT lung disease 10:53:00 AM melvina ng disease [facility] CHEST 2 CHEST 2 EDT Luci [employer] [facility] Restrictive lung disease HC REF HC REF Routine 06/19/2020 06/19/2020 [facility] SARS-COV-2 HIGH SARS-COV-2 HIGH 1:05 PM EDT 01:0 5:00 PM EDT [facility] THROUGHPUT THROUGHPUT He alth System I nc Eligible professional attests 04/16/2020 12:00:00 AM E DT eCW1 (Digestive Disease to documenting in the medical [facility]) record they obtained, updated, or reviewed the patient's current medications CURRENT TOBACCO NON-USER CAD 04/16/2020 12:00:00 AM ED T eCW1 (Digestive Disease CAP COPD PV DM [facility]) DISCHRG MEDS RECONCILED 01/23/2020 12:00:00 AM EST eCW1 (Digestive Disease W/CURRENT MED LIST [facility]) Bmi is documented within 01/23/2020 12:00:00 AM EST eCW1 (Digestive Disease normal parameters and no [facility] [place]) follow-up plan is required Normal blood pressure reading 01/23/2020 12:00:[address] eCW1 (Digestive Disease documented, follow-up not [facility] [place]) required URINLS DIP AMB POC Routine 10/14/2019 Orchalgia 10/14/2019 Left Bon STICK/TABLET URINALYSIS 1:16 PM EST Left 06:16:00 PM epididymitisOrchalgia [facility] REAGNT DIP STICK epididymitis EST C harity NON-AUTO MANUAL W/ Healt h [employer] [facility] Left epididymitis Orchalgia Results ID Date Data Source [id number] 08/26/2020 04:24:00 PM EDT [facility] Name Value Range Interpretation Description Data Sup porting Code Source(s) Document(s ) SARS-CoV-2 [facility] (COVID-19) RNA [Presence] in Respiratory specimen by PANKAJ with probe detection This lab was ordered by [email or web address] and repo rted by [employer] ID Date Data Source [id number] 08/26/2020 12:00:00 AM EDT [facility] Name Value Range Interpretation Description Data Sup porting Code Source(s) Document(s ) SARS [facility] coronavirus 2 Ag This lab was ordered by [facility] and reported by [facility]. ID Date Data Source [id number] 08/23/2020 12:55:00 PM EDT [facility] Name Value Range Interpretation Code Description Data Catalina rce(s) Supporting Document(s ) SARS-CoV-2 [facility] PCR This lab was ordered by RAMIRO LEVI and reported by [employer]. ID Date Data Source [id number] 08/13/2020 12:24:00 PM EDT [facility] Name Value Range Interpretation Description Data Sup porting Code Source(s) Document(s ) SARS [facility] coronavirus 2 RNA This lab was ordered by REUBEN agudelo [facility] and reported by [facility]. ID Date Data Source [id number] 08/10/2020 11:33:00 AM EDT [facility] Name Value Range Interpretation Description Data Sup porting Code Source(s) Document(s ) SARS [facility] coronavirus 2 RNA This lab was ordered by [facility] and reported by [facility]. ID Date Data Source [id number] 08/06/2020 08:45:00 AM EDT [facility] Name Value Range Interpretation Description Data Sup porting Code Source(s) Document(s ) SARS [facility] coronavirus 2 RNA This lab was ordered by [facility] and reported by [facility]. ID Date Data Source [id number] 08/04/2020 11:38:00 AM EDT [facility] Name Value Range Interpretation Description Data Sup porting Code Source(s) Document(s ) SARS [facility] coronavirus 2 RNA This lab was ordered by [facility] and reported by [facility]. ID Date Data Source [id number] 07/31/2020 11:20:00 AM EDT [facility] Name Value Range Interpretation Description Data Sup porting Code Source(s) Document(s ) SARS [facility] coronavirus 2 RNA This lab was ordered by [facility] and reported by [facility]. ID Date Data Source [id number] 07/27/2020 09:46:00 AM EDT [facility] Name Value Range Interpretation Description Data Sup porting Code Source(s) Document(s ) SARS [facility] coronavirus 2 RNA This lab was ordered by [facility] and reported by [facility]. ID Date Data Source [id number] 07/24/2020 08:50:00 AM EDT [facility] Name Value Range Interpretation Description Data Sup porting Code Source(s) Document(s ) SARS [facility] coronavirus 2 RNA This lab was ordered by [facility] and reported by [facility]. ID Date Data Source [id number] 07/20/2020 09:59:00 AM EDT [facility] Name Value Range Interpretation Description Data Sup porting Code Source(s) Document(s ) SARS [facility] coronavirus 2 RNA This lab was ordered by [facility] and reported by [facility]. ID Date Data Source [id number] 07/16/2020 10:40:00 AM EDT [facility] Name Value Range Interpretation Description Data Sup porting Code Source(s) Document(s ) SARS [facility] coronavirus 2 RNA This lab was ordered by REUBEN agudelo [facility] and reported by [facility]. ID Date Data Source [id number] 07/13/2020 11:50:00 AM EDT [facility] Name Value Range Interpretation Description Data Sup porting Code Source(s) Document(s ) SARS [facility] coronavirus 2 RNA This lab was ordered by REUBEN RADHA agudelo [facility] and reported by [facility]. ID Date Data Source [id number] 06/20/2020 01:50:13 PM EDT [facility] Name Value Range Interpretation Code Description Data Catalina rce(s) Supporting Document(s ) [facility] Testing Performed by:Keenan chavira [facility] [place] [id number] REPORT FROM REFERENCE LAB ID Date Data Source [id number] 02/27/2020 12:00:00 AM EDT [facility] Name Value Range Interpretation Code Description Data Catalina rce(s) Supporting Document(s ) 2019-nCoV [facility] RNA XXX PANKAJ+probe- Imp This lab was ordered by [employer] KRISTIAN LEVI and reported by [employer]. Procedure Social History Code Duration Value Status Description Data Source(s ) Alcohol intake 06/22/2020 Current completed Current [place] 12:00:00 AM non-drinker non-drinker of [employer] EDT of alcohol alcohol (finding) [facility] (finding) Tobacco use and 06/22/2020 Never used completed Never used [facility] exposure 12:00:00 AM [employer] EDT [facility] Smoking 06/22/2020 Never smoker completed Never smoker [place] 12:00:00 AM [employer] EDT [facility] Smoking 05/15/2020 Never Smoker completed Never Smoker eCW1 (Dige stive 12:00:00 AM Disease EDT [facility]) Smoking 05/15/2020 Never Smoker completed Never Smoker eCW1 (Dige stive 12:00:00 AM Disease EDT [facility]) Smoking 05/15/2020 Never Smoker completed Never Smoker eCW1 (Dige stive 12:00:00 AM Disease EDT [facility]) Smoking 05/15/2020 Never Smoker completed Never Smoker eCW1 (Dige stive 12:00:00 AM Disease T [facility]) Smoking 05/15/2020 Never Smoker completed Never Smoker eCW1 (Dige stive 12:00:00 AM Disease [facility]) Smoking 05/15/2020 Never Smoker completed Never Smoker eCW1 (Dige stive 12:00:00 AM Disease T [facility]) Smoking 05/15/2020 Never Smoker completed Never Smoker eCW1 (Dige stive 12:00:00 AM Disease T [facility]) Alcohol intake 11/05/2019 Current completed Current [place] 12:00:00 AM non-drinker non-drinker of [facility] of alcohol alcohol (finding) [facility] (finding) Tobacco use and 11/05/2019 Never used completed Never used [facility] exposure 12:00:00 AM [employer] Smoking 11/05/2019 Never smoker completed Never smoker [place] 12:00:00 AM [employer] System Consult A Doctor Alcohol intake 10/14/2019 Current completed Current [place] 12:00:00 AM non-drinker non-drinker of [facility] of alcohol alcohol (finding) [facility] (finding) Smoking 10/14/2019 Never smoker completed Never smoker [place] 12:00:00 AM [employer] System Consult A Doctor Smoking 09/30/2019 Never smoker completed Never smoker [place] 12:00:00 AM [employer] [facility] Smoking 07/25/2019 Never smoker completed Never smoker [place] 12:00:00 AM [employer] Vital Signs ID Date Data Source UNK Name Value Range Interpretation Code Description Data Source(s) Oxygen saturation 98 % 98 % [facility] in Arterial blood [employer] by Pulse oximetry System Consult A Doctor Body mass index 30.90 kg/m2 30.90 kg/m2 [facility] (BMI) [Ratio] [employer] System Consult A Doctor Body weight 81.647 kg 81.647 kg [employer] Body height 162.6 cm 162.6 cm Bon [facility] Body temperature 36.5 Dolores 36.5 Dolores [facility] [employer] [facility] Heart rate 80 /min 80 /min [facility] [employer] [facility] Diastolic blood 65 mm[Hg] 65 mm[Hg] [facility] pressure [facility] [employer] [facility] Systolic blood 100 mm[Hg] 100 mm[Hg] [place] pressure Luci [employer] [facility] Diastolic blood 69 mm[Hg] 69 mm[Hg] eCW1 (Dig estive pressure [facility]) Systolic blood 105 mm[Hg] 105 mm[Hg] eCW1 (Dige stive pressure [facility]) Heart rate 74 /min 74 /min eCW1 (Digestiv e [facility]) Body mass index 31.88 kg/m2 31.88 kg/m2 eCW1 (D igestive (BMI) [Ratio] Disease [facility]) Body weight 180 [lb_av] 180 [lb_av] eCW1 (Diges tive Measured Disease [facility]) Body height 63 [in_us] 63 [in_us] eCW1 ([facility]) Diastolic blood 68 mm[Hg] 68 mm[Hg] eCW1 (Dig estive pressure Disease [facility]) Systolic blood 100 mm[Hg] 100 mm[Hg] eCW1 (Dige stive pressure [facility]) Heart rate 78 /min 78 /min eCW1 (Digestiv e Disease [facility]) Body mass index 31.88 kg/m2 31.88 kg/m2 eCW1 (D igestive (BMI) [Ratio] Disease [facility]) Body weight 180 [lb_av] 180 [lb_av] eCW1 (Diges tive Measured Disease [facility]) Body height 63 [in_us] 63 [in_us] eCW1 (Digesti ve Disease [facility]) Oxygen saturation 98 % 98 % [facility] Arterial blood [employer] Body mass index 29.18 kg/m2 29.18 kg/m2 [facility] (BMI) [Ratio] [employer] Body weight 77.111 kg 77.111 kg [facility] [employer] Body height 162.6 cm 162.6 cm [facility] Heart rate 105 /min 105 /min [employer] Diastolic blood 68 mm[Hg] 68 mm[Hg] [facility] [employer] Systolic blood 110 mm[Hg] 110 mm[Hg] [place] pressure [employer] Oxygen saturation 98 % 98 % [facility] in Arterial blood [facility] [employer] Body mass index 29.18 kg/m2 29.18 kg/m2 [facility] (BMI) [Ratio] [employer] Body weight 77.111 kg 77.111 kg [employer] Body height 162.6 cm 162.6 cm [employer] Heart rate 68 /min 68 /min [employer] Diastolic blood 74 mm[Hg] 74 mm[Hg] [facility] [employer] Systolic blood 106 mm[Hg] 106 mm[Hg] [employer] s pressure [employer] Oxygen saturation 98 % 98 % [facility] in Arterial blood [employer] Body mass index 29.18 kg/m2 29.18 kg/m2 [facility] (BMI) [Ratio] [facility] Body weight 77.111 kg 77.111 kg [employer] [facility] Body height 162.6 cm 162.6 cm [employer] [facility] Heart rate 78 /min 78 /min [employer] Diastolic blood 70 mm[Hg] 70 mm[Hg] [facility] [employer] Systolic blood 100 mm[Hg] 100 mm[Hg] [place] pressure [employer] Patient Treatment Plan of Care Planned Activity Planned Date Details Description Data Source (s) PARoxetine (PAXIL) 10 mg 2020 12:00:00 [facility] tablet [facility] doxycycline hyclate 100 09/29/2019 12:00:00 [facility] MG Oral Tablet [facility] Naproxen 375 MG Oral 07/24/2019 12:00:00 [facility] Tablet [facility] Lidocaine 40 MG/ML 07/17/2019 12:00:00 [facility] Topical Cream [employer] Clindamycin 10 MG/ML 05/29/2019 12:00:00 [facility] Verma Topical Lotion [facility]
--- OUTSIDE RECORDS SUMMARY | 2020-09-17 08:40 | XMS ---
:1985 Author Organization [facility] Support Name Relationship Address Phone UE, UNEMPLOYED Unavailable Unavailable Unavailable UE Unavailable Unavailable Unavailable GENI BARBA MOTHER [address] [facility] [place] [address] JEREMIAS BARBA Mother Unavailable jeremias barba Unavailable [address] [place] [address] Aba, Mr. & Mrs. Unavailable 15 [facility] Franki [facility] [place] [address] Aba, Mr. & Mrs. Unavailable 15 [facility] Tiny [facility] [place] [address] Re-disclosure Warning The records that you are [...] is protected by Article 27-F of the [facility] Public Health law. If you continue you may haveaccess to information: Regarding HIV / AIDS; Provided by facilities licensed or operated by the [facility] Office of Mental Health; or Provided by the [facility] Office for People With Developmental Disabilities. If such information is present, then the following [facility] mandated warning applies: This information [...] law may result in a fine or long-term sentence or both. A general authorization for the release of medical or other information is NOT sufficient authorization for further disclosure. Encounters Encounter Providers Location Date Indications Data Source(s ) Outpatient 09/16/2020 03:00:00 Bon Malcolm Verma PM EDT - 09/16/2020 [facility] 03:26:27 PM EDT Patient discharged. (WEB) [facility] 08/27/2020 12:00:00 AM eCW1 ([facility] [place] (WEB) [facility] 07/29/2020 12:00:00 AM eCW1 ([facility] [place] [place] (WEB) [facility] 07/29/2020 12:00:00 AM eCW1 ([facility] [place] [place] (WEB) [facility] 07/29/2020 12:00:00 AM eCW1 ([facility] [place] [place] (WEB) [facility] 07/29/2020 12:00:00 AM eCW1 ([facility] [place] ED[facility] [place]) (WEB) [facility] 07/29/2020 12:00:00 AM eCW1 ([facility] [place] ED[facility] [place] Outpatient 06/22/2020 10:00:00 AM Cesario Smith Luci EDT - 06/22/2020 [facility] 10:40:49 AM EDT Patient discharged. Outpatient 06/19/2020 09:00:00 [facility] - Good AM EDT [facility] Outpatient 06/19/2020 12:00:00 [facility] - Good AM EDT - 06/19/2020 [facility] 11:59:00 PM EDT [facility] 06/18/2020 12:00 :00 eCW2 ([facility] AM EDT Center) Outpatient 06/08/2020 10:45:00 [facility] 05/15/2020 12:00:00 eCW1 ([facility] [place], AM EDT [facility] [place]) Outpatient 05/11/2020 03:39:27 Bon S [facility] Luci ED [facility] 05/08/2020 08:56:37 [facility] 05/05/2020 10:09:22 Bon S ecours Luci EDT [facility] 04/30/2020 12:00:00 eCW1 ([facility] [place] [place] EDT [facility] [place]) Outpatient 04/27/2020 09:45:00 Bon S [facility] Luci AM EDT - 04/27/2020 [facility] 10:50:28 AM EDT Patient discharged. [facility] 04/16/2020 12:00:00 eCW1 ([facility] [place] [place] EDT [facility] [place]) [facility] 04/15/2020 12:00:00 eCW1 ([facility] [place] [place], AM EDT [facility] [place] 04/06/2020 12:00:00 eCW1 ([facility] [place] [place], AM EDT [facility] [place]) [facility] 03/25/2020 12:00:00 eCW1 ([facility] [place] [place], AM EDT [facility] [place]) [facility] 03/24/2020 12:00:00 eCW1 ([facility] [place] [place], AM EDT [facility] [place]) [facility] 03/18/2020 12:00:00 eCW1 ([facility] [place] [place], AM EDT [facility] [place]) [facility] 03/17/2020 12:00:00 eCW1 ([facility] [place] [place], AM EDT [facility] [place]) [facility] 02/27/2020 12:00:00 eCW1 ([facility] [place] [place], AM EDT [facility] [place]) [facility] 02/07/2020 12:00:00 eCW1 ([facility] [place] [place], AM EDT [facility] [place]) [facility] 01/28/2020 12:00:00 eCW1 ([facility] [place] [place], AM EST [facility] [place]) [facility] 01/23/2020 12:00:00 eCW1 ([facility] [place] [place], AM EST [facility] [place]) [facility] 01/23/2020 12:00:00 eCW1 ([facility] [place] [place], AM EST [facility] [place]) Outpatient 01/09/2020 11:20:59 Bon S [facility] 01/08/2020 12:00:00 eCW1 ([facility] [place] [place], AM EST [facility] [place]) Outpatient 01/07/2020 02:00:00 Bon S [facility] Outpatient 12/31/2019 01:00:00 Bon S [facility] 12/31/2019 12:00:00 eCW1 ([facility] [place] [place], AM EST [facility] [place]) [facility] 12/24/2019 12:00:00 eCW1 ([facility] [place] [place], AM EST [facility] [place]) [facility] 12/08/2019 12:00:00 eCW1 ([facility] [place] [place], AM EST [facility] [place]) [facility] 12/01/2019 12:00 :00 eCW2 ([facility]) [facility] 11/29/2019 12:00:00 eCW1 ([facility] [place] [place], AM EST [facility]) [facility] 11/28/2019 12:00:00 eCW1 ([facility] [place] [place], AM EST [facility]) Outpatient 11/26/2019 12:57:23 Bon S [facility] Luci PM EST [facility] 10/31/2019 12:00:00 eCW1 ([facility] [place] [place], AM EST [facility]) [facility] 10/31/2019 12:00:00 eCW1 ([facility] [place] [place], AM EST [facility]) [facility] 10/23/2019 12:00 :00 eCW2 ([facility] EST Center) (TEL) [facility] 10/16/2019 12:00:00 eCW2 ([facility] EST Center) [facility] 10/16/2019 12:00 :00 eCW2 ([facility]) Outpatient 10/14/2019 01:00:00 Bon S ecours Luci PM EST - [facility]14[facility] 01:41[facility]51 PM EST Patient discharged. Outpatient 10/10/2019 04:00:00 PM Cesario n [facility] Luci EST [facility] 10/09/2019 12:00:00 AM eCW2 ([facility] EST Center) Outpatient 10/08/2019 09:48:59 AM Cesario n [facility] Luci EST [facility] Outpatient 10/08/2019 09:40:24 AM Cesario n [facility] Luci EST [facility] Outpatient 09/30/2019 09:45:00 AM Cesario n [facility] Luci EST - 09/30/2019 [facility] 11:14:07 AM EST Patient discharged. (TEL) [facility] 09/24/2019 12:00:00 AM eCW2 ([facility] EDT Center) (TEL) [facility] 09/01/2019 12:00:00 AM eCW2 ([facility] EDT Center) Outpatient 08/14/2019 01:15:00 PM Cesario n [facility] Outpatient 08/07/2019 03:00:00 PM Cesario n [facility] Outpatient 08/02/2019 05:00:03 PM Cesario n [facility] 07/31/2019 12:00:00 AM eCW2 ([facility] EDT Center) Outpatient 07/25/2019 01:30:00 PM Cesario n Seclucia Luci EDT - 07/25/2019 [facility] 01:50:19 PM EDT Patient discharged. [facility] 07/24/2019 12:00:00 eCW2 ([facility]) Outpatient 07/22/2019 10:15:00 Bon Malcolm oconnorurs AM EDT [facility] 06/27/2019 04:21:47 Groin Pain [facility] - Good PM EDT - 06/27/2019 [facility] 08:35:00 PM EDT Groin Pain Patient discharged. Immunizations Vaccine Date Status Description Data Source(s) This CVX code 09/05/2019 completed Influenza 09/05/2019, Casey Smith allows reporting 12:00:00 AM EDT Vaccine 08/31/2015 Luci of [facility] when formulation [facility] is unknown (for example, when recording a Influenza vaccination when noted on a vaccination card) Medications Medication Brand Start Product Dose Route [facility] Indications Reaction Description Data Name Date Form Instructions Instructions Source(s) Levothyroxi Levoth 06/26/ active Levothy roxin eCW2 ne Sodium yroxin 2020 e Sodium 75 ( [place] 0.075 MG e 12:00: [facility] Oral Tablet Sodium 00 AM Cente r) Levothyroxi 75 MCG EDT ne Sodium 75 MCG Levothyroxi Levoth 06/26/ active Levothy roxin eCW2 ne Sodium yroxin 2020 e Sodium 75 ( [place] 0.075 MG e 12:00: [facility] Oral Tablet Sodium 00 AM Cente r) Levothyroxi 75 MCG EDT ne Sodium 75 MCG Levothyroxi Levoth 07/31/ suspend Levoth yroxin eCW2 ne Sodium yroxin 2020 ed e Sodium 75 ( [place] 0.075 MG e 12:00: [facility] Oral Tablet Sodium 00 AM Cente r) Levothyroxi 75 MCG EDT ne Sodium 75 MCG PARoxetine 71425- 04/14/ active Bon (PAXIL) 10 775-30 2020 [...] Oral en 2018 [facility] Tablet (NAPRO 12:00: [facility] naproxen SYN) 00 AM Health (NAPROSYN) 375 mg EDT [facility] 375 mg tablet tablet Lidocaine lidoca 07/17/ aborted Bon 40 MG/ML ine 2018 [facility] Topical (XYLOC 12:00: [facility] Cream JEFFERSON) 00 AM Health lidocaine 4 % EDT [facility] (XYLOCAINE) topica 4 % topical l cream cream Clindamycin clinda 05/29/ aborted B on 10 MG/ML mycin 2018 [facility] Topical (CLEOC 12:00: [facility] Lotion IN T) 00 AM Health clindamycin 1 % EDT System [facility]c (CLEOCIN T) lotion 1 % lotion Insurance Providers Payer name Policy type Policy ID Covered Covered democrat's Policy P nikki / Coverage democrat ID relationship to Raman Inf ormation type raman [facility] [id number] SP [id number] MEDICARE [place]AN [place] [id number] [facility] [id number] CARE MEDICAID [facility] [id number] [facility] [id number] SP [id number] NON CAP MEDICARE [id number] SP [id number] [place] [id number] SP [id number] MEDICARE ADV PLAN MEDICARE [id number] SP [id number] Dental Sliding A SELF Fee - Nominal [employer] [facility] [id number] SELF [id number] [facility] [id number] SELF [id number] Healthcare Medicaid BBA D [id number] SELF [id number] Z Dassel Care I [id number] SELF [id number] [place] Managed [id number] CARE [place] Managed [id number] CARE [place] [id number] CARE [place]ID [place] Managed [id number] CARE MEDICAID Care Medicaid [place] CARE [id number] Patient is [id number] [place] [id number] [place] [id number] [place]ARE [id number] MEDICAID [place] CARE Managed [id number] MEDICAID Care Medicaid Problems, Conditions, and Diagnoses Code Display Name Description Problem Type Effective Data Dates Source(s) E03.9 Acquired Acquired Problem 06/26/2020 eCW2 ([place] hypothyroidism hypothyroidism 12:00:00 AM [facility] EDT Center) E29.1 [id number] Hypogonadism in male Problem 06/23/2020 eCW2 ([place] 12:00:00 AM [facility] EDT Center) E29.1 [id number] Hypotestosteronemia in Problem 06/22/2020 eCW2 ([place] male 12:00:00 AM [facility] EDT Center) R10.31 [id number] Right lower quadrant Problem 04/16/2020 eCW1 abdominal pain 12:00:00 AM (Digestiv e EDT [facility]) R10.31 [id number] Right lower quadrant Problem 04/16/2020 eCW1 abdominal pain 12:00:00 AM (Digestiv e EDT [facility]) R10.32 743234214 Left lower quadrant Problem 03/18/2020 eCW1 pain 12:00:00 AM (Digestive EDT [facility]) R10.32 [id number] Left lower quadrant Problem 03/18/2020 eCW1 pain 12:00:00 AM (Digestive EDT [facility]) R14.0 [id number] Abdominal bloating Problem 01/23/2020 eCW1 12:00:00 AM (Digestive EST [facility]) R14.0 [id number] Abdominal bloating Problem 01/23/2020 eCW1 12:00:00 AM (Digestive EST Disease [facility]) K59.09 [id number] Chronic constipation Problem 11/28/2019 eCW1 12:00:00 AM (Digestive EST Disease [facility]) K58.1 [id number] Irritable bowel Problem 11/28/2019 eCW1 syndrome with 12:00:00 AM (Digestive constipation EST Disease [facility]) K59.09 [id number] Chronic constipation Problem 11/28/2019 eCW1 12:00:00 AM (Digestive EST Disease [facility]) K58.1 [id number] Irritable bowel Problem 11/28/2019 eCW1 syndrome with 12:00:00 AM (Digestive constipation EST Disease [facility]) Z01.818 Encounter for Encounter for other Diagnosis 06/19/2020 [facility] - Good other preprocedural 01:00:00 PM [facility] preprocedural examination EDT Hospital examination N50.812 Left testicular Left testicular pain Diagnosis 04/27/2020 [facility] pain 10:44:16 AM [facility] N45.1 Epididymitis Epididymitis Diagnosis 10/14/2019 [place] 01:01:34 PM Luci [employer] N50.819 Testicular pain, Testicular pain, Diagnosis 07/25/2019 Cesario n [facility] unspecified unspecified 01:24:24 PM [facility] Surgeries/Procedures Procedure Description Date Indications Data Source(s) AMB POC AMB POC Routine 06/22/2020 Restrictive 06/22/2020 Restri ctive Bon XRAY XRAY 10:53 AM EDT lung disease 10:53:00 AM melvina ng disease [facility] CHEST 2 CHEST 2 EDT [facility] [employer] [facility] [email or web address] [facility] Restrictive lung disease HC REF HC REF Routine 06/19/2020 06/19/2020 Cesario n [facility] SARS-COV-2 HIGH SARS-COV-2 HIGH 1:05 PM EDT 01:0 5:00 PM EDT [facility] THROUGHPUT THROUGHPUT alth System I nc Eligible professional attests 04/16/2020 12:00:00 AM E DT eCW1 ([facility] to documenting in the medical [facility]) record they obtained, updated, or reviewed the patient's current medications CURRENT TOBACCO NON-USER CAD 04/16/2020 12:00:00 AM ED T eCW1 ([facility] CAP COPD PV [facility] [place]) DISCHRG MEDS RECONCILED 01/23/2020 12:00:00 AM EST eCW1 ([facility] W/CURRENT MED LIST Associate s [facility]) Bmi is documented within 01/23/2020 12:00:00 AM EST eCW1 ([facility] normal parameters and no [facility] [place]) follow-up plan is required Normal blood pressure reading 01/23/2020 12:00:[address] eCW1 ([facility] documented, follow-up not [facility] [place]) required URINLS DIP AMB POC Routine 10/14/2019 Orchalgia 10/14/2019 Left Bon STICK/TABLET URINALYSIS 1:16 PM EST Left 06:16:00 PM epididymitisOrchalgia [facility] REAGNT DIP STICK epididymitis EST C harity NON-AUTO MANUAL W/ Healt h [facility] [facility] Left epididymitis Orchalgia Results ID Date Data Source [id number] 09/13/2020 12:57:00 PM EDT [facility] Name Value Range Interpretation Description Data Sup porting Code Source(s) Document(s ) SARS-CoV-2 [facility] (COVID-19) RNA [Presence] in Respiratory specimen by PANKAJ with probe detection This lab was ordered by [id number] and repo rted by [email or web address] ID Date Data Source [id number] 09/07/2020 10:45:00 AM EDT [facility] Name Value Range Interpretation Description Data Sup porting Code Source(s) Document(s ) SARS [facility] coronavirus 2 RNA This lab was ordered by REUBEN agudelo [facility] and reported by [facility]. ID Date Data Source [id number] 08/26/2020 04:24:00 PM EDT [facility] Name Value Range Interpretation Description Data Sup porting Code Source(s) Document(s ) SARS-CoV-2 [facility] (COVID-19) RNA [Presence] in Respiratory specimen by PANKAJ with probe detection This lab was ordered by [id number] and repo rted by [email or web address] ID Date Data Source [id number] 08/26/2020 12:00:00 AM EDT [facility] Name Value Range Interpretation Description Data Sup porting Code Source(s) Document(s ) SARS [facility] coronavirus 2 Ag This lab was ordered by [facility] and reported by [facility]. ID Date Data Source [id number] 08/23/2020 12:55:00 PM EDT [facility] Name Value Range Interpretation Code Description Data Catalina rce(s) Supporting Document(s ) SARS-CoV-2 [facility] PCR This lab was ordered by RAMIRO LEVI and reported by [employer]. ID Date Data Source [id number] 08/13/2020 12:24:00 PM EDT [facility] Name Value Range Interpretation Description Data Sup porting Code Source(s) Document(s ) SARS [facility] coronavirus 2 RNA This lab was ordered by REUBEN agudelo [facility] and reported by [facility]. ID Date Data Source [id number] 08/10/2020 11:33:00 AM EDT [facility] Name Value Range Interpretation Description Data Sup porting Code Source(s) Document(s ) SARS [facility] coronavirus 2 RNA This lab was ordered by [facility] RADHA agudelo [facility] and reported by [facility]. ID Date Data Source [id number] 08/06/2020 08:45:00 AM EDT [facility] Name Value Range Interpretation Description Data Sup porting Code Source(s) Document(s ) SARS [facility] coronavirus 2 RNA This lab was ordered by [facility] and reported by [facility]. ID Date Data Source [id number] 08/04/2020 11:38:00 AM EDT [facility] Name Value Range Interpretation Description Data Sup porting Code Source(s) Document(s ) SARS [facility] coronavirus 2 RNA This lab was ordered by [facility] and reported by [facility]. ID Date Data Source [id number] 07/31/2020 11:20:00 AM EDT [facility] Name Value Range Interpretation Description Data Sup porting Code Source(s) Document(s ) SARS [facility] coronavirus 2 RNA This lab was ordered by [facility] and reported by [facility]. ID Date Data Source [id number] 07/27/2020 09:46:00 AM EDT [facility] Name Value Range Interpretation Description Data Sup porting Code Source(s) Document(s ) SARS [facility] coronavirus 2 RNA This lab was ordered by [facility] RADHA agudelo [facility] and reported by [facility]. ID Date Data Source [id number] 07/24/2020 08:50:00 AM EDT [facility] Name Value Range Interpretation Description Data Sup porting Code Source(s) Document(s ) SARS [facility] coronavirus 2 RNA This lab was ordered by [facility] and reported by [facility]. ID Date Data Source [id number] 07/20/2020 09:59:00 AM EDT [facility] Name Value Range Interpretation Description Data Sup porting Code Source(s) Document(s ) SARS [facility] coronavirus 2 RNA [facility] and reported by [facility]. ID Date Data Source [id number] 07/16/2020 10:40:00 AM EDT [facility] Name Value Range Interpretation Description Data Sup porting Code Source(s) Document(s ) SARS [facility] coronavirus 2 RNA This lab was ordered by [facility] and reported by [facility]. ID Date Data Source [id number] 07/13/2020 11:50:00 AM EDT [facility] Name Value Range Interpretation Description Data Sup porting Code Source(s) Document(s ) SARS [facility] coronavirus 2 RNA This lab was ordered by [facility] and reported by [facility]. ID Date Data Source [id number] 06/20/2020 01:50:13 PM EDT [facility] Name Value Range Interpretation Code Description Data Catalina rce(s) Supporting Document(s ) CJ FARIAS [facility] Testing Performed by:Keenan chavira [place], [place] [address]TVO REPORT FROM REFERENCE LAB ID Date Data Source [id number] 02/27/2020 12:00:00 AM EDT [facility] Name Value Range Interpretation Code Description Data Catalina rce(s) Supporting Document(s ) 2019-nCoV [facility] RNA XXX PANKAJ+probe- Imp This lab was ordered by [employer] [facility] C ARE and reported by [employer] Procedure Social History Code Duration Value Status Description Data Source(s ) Alcohol intake 06/22/2020 Current completed Current [place] 12:00:00 AM non-drinker non-drinker of [employer] of alcohol alcohol (finding) [facility] (finding) Tobacco use and 06/22/2020 Never used completed Never used [facility] exposure 12:00:00 AM [facility] Smoking 06/22/2020 Never smoker completed Never smoker [place] 12:00:00 AM [facility] Smoking 05/15/2020 Never Smoker completed Never Smoker eCW1 (Dige stive 12:00:00 AM Disease EDT [facility]) Smoking 05/15/2020 Never Smoker completed Never Smoker eCW1 (Dige stive 12:00:00 AM Disease EDT [facility]) Smoking 05/15/2020 Never Smoker completed Never Smoker eCW1 (Dige stive 12:00:00 AM Disease EDT [facility]) Smoking 05/15/2020 Never Smoker completed Never Smoker eCW1 (Dige stive 12:00:00 AM Disease EDT [facility]) Smoking 05/15/2020 Never Smoker completed Never Smoker eCW1 (Dige stive 12:00:00 AM Disease EDT [facility]) Smoking 05/15/2020 Never Smoker completed Never Smoker eCW1 (Dige stive 12:00:00 AM Disease T [facility]) Smoking 05/15/2020 Never Smoker completed Never Smoker eCW1 (Dige stive 12:00:00 AM Disease EDT [facility]) Alcohol intake 11/05/2019 Current completed Current [place] 12:00:00 AM non-drinker non-drinker of [employer] of alcohol alcohol (finding) [facility] (finding) Tobacco use and 11/05/2019 Never used completed Never used [facility] exposure 12:00:00 AM Fetch MD [facility] Smoking 11/05/2019 Never smoker completed Never smoker [place] 12:00:00 AM Fetch MD [facility] Alcohol intake 10/14/2019 Current completed Current [place] 12:00:00 AM non-drinker non-drinker of [employer]@ EST of alcohol alcohol (finding) [facility] (finding) Smoking 10/14/2019 Never smoker completed Never smoker [place] 12:00:00 AM Fetch MD [facility] Smoking 09/30/2019 Never smoker completed Never smoker [place] 12:00:00 AM Fetch MD [facility] Smoking 07/25/2019 Never smoker completed Never smoker [place] 12:00:00 AM [employer] EDT System [employer] Vital Signs ID Date Data Source UNK Name Value Range Interpretation Code Description Data Source(s) Oxygen saturation 98 % 98 % [facility] ours in Arterial blood [employer]@ by [employer] [facility] Body mass index 30.90 kg/m2 30.90 kg/m2 [facility] ours (BMI) [Ratio] [employer] Body weight 81.647 kg 81.647 kg [facility] [employer] Body height 162.6 cm 162.6 cm [facility] [employer] Body temperature 36.5 Dolores 36.5 Dolores [employer] Heart rate 80 /min 80 /min [facility] Diastolic blood 65 mm[Hg] 65 mm[Hg] [facility] Secou rs pressure [employer] Systolic blood 100 mm[Hg] 100 mm[Hg] [place] s pressure [employer] Diastolic blood 69 mm[Hg] 69 mm[Hg] eCW1 (Dig estive pressure Disease [facility]) Systolic blood 105 mm[Hg] 105 mm[Hg] eCW1 (Dige stive pressure Disease [facility]) Heart rate 74 /min 74 /min eCW1 (Digestiv e Disease [facility]) Body mass index 31.88 kg/m2 31.88 kg/m2 eCW1 (D igestive (BMI) [Ratio] [facility]) Body weight 180 [lb_av] 180 [lb_av] eCW1 (Diges tive Measured Disease [facility]) Body height 63 [in_us] 63 [in_us] eCW1 (Digesti ve Disease [facility]) Diastolic blood 68 mm[Hg] 68 mm[Hg] eCW1 (Dig estive pressure [facility]) Systolic blood 100 mm[Hg] 100 mm[Hg] eCW1 (Dige stive pressure [facility]) Heart rate 78 /min 78 /min eCW1 (Digestiv e Disease [facility]) Body mass index 31.88 kg/m2 31.88 kg/m2 eCW1 (D igestive (BMI) [Ratio] [facility]) Body weight 180 [lb_av] 180 [lb_av] eCW1 (Diges tive Measured Disease [facility]) Body height 63 [in_us] 63 [in_us] eCW1 (Digesti ve Count includes the [facility]) Oxygen saturation 98 % 98 % [place] ours in Arterial blood [facility] [employer] Body mass index 29.18 kg/m2 29.18 kg/m2 [facility] ours (BMI) [Ratio] [employer] Body weight 77.111 kg 77.111 kg [facility] [employer] Body height 162.6 cm 162.6 cm [employer] Heart rate 105 /min 105 /min [facility] [employer] Diastolic blood 68 mm[Hg] 68 mm[Hg] [facility] pressure [employer] Systolic blood 110 mm[Hg] 110 mm[Hg] [place] s pressure [employer] Oxygen saturation 98 % 98 % [place] ours in Arterial blood [employer] Body mass index 29.18 kg/m2 29.18 kg/m2 [facility] ours (BMI) [Ratio] [employer] Body weight 77.111 kg 77.111 kg [facility] [employer] Body height 162.6 cm 162.6 cm [facility] [employer] Heart rate 68 /min 68 /min [facility] [employer] Diastolic blood 74 mm[Hg] 74 mm[Hg] [facility] pressure [employer] Systolic blood 106 mm[Hg] 106 mm[Hg] [place] pressure [employer] Oxygen saturation 98 % 98 % [place] ours in Arterial blood [employer] Body mass index 29.18 kg/m2 29.18 kg/m2 [facility] ours (BMI) [Ratio] [employer] Body weight 77.111 kg 77.111 kg [facility] [employer] Body height 162.6 cm 162.6 cm [facility] [employer] Heart rate 78 /min 78 /min [employer] Diastolic blood 70 mm[Hg] 70 mm[Hg] Casey Carrillo rs pressure [employer] Systolic blood 100 mm[Hg] 100 mm[Hg] Casey Hernandez s pressure [employer] [facility] Patient Treatment Plan of Care Planned Activity Planned Date Details Description Data Source (s) PARoxetine (PAXIL) 10 mg 2020 12:00:00 [facility] Luc[facility] tablet AM [employer] [facility] doxycycline hyclate 100 09/29/2019 12:00:00 Casey Smith Luc[facility] MG Oral Tablet [employer] [facility] Naproxen 375 MG Oral 07/24/2019 12:00:00 [facility] Tablet [employer] [facility] Lidocaine 40 MG/ML 07/17/2019 12:00:00 Cesario Verma Topical Cream [employer] [facility] Clindamycin 10 MG/ML 05/29/2019 12:00:00 Casey Verma Topical Lotion [employer] [facility]
[2020-09-17 09:54] VITALS: BP 128/81; PULSE 85; TEMP 99.7; BMI 32.9
--- NOTE | 2020-09-17 16:16 | HP ---
CHIEF COMPLAINT: Depression PCP: Kayode Alonso Primary Psychiatrist: Shaw Rojas HISTORY OF PRESENT ILLNESS: 35 year-old with a PMH significant for depression and anxiety, appears today for his first ECT treatment. Recent Events: * none PAST MEDICAL HISTORY: Depression Anxiety PAST SURGICAL HISTORY: None Social History: lives in [place], , lives with parents and his daughter; unemployed; attends job training Smoking: never Alcohol: no Drugs: no Family history: mother 72 a&w; father 68 A&w Allergies No Known Allergies Allergy (Verified 09/10/20 09:44) HOME MEDICATIONS: Home Medications Medication Instructions Recorded Gabapentin [Neurontin] 100 mg PO HS 07/15/20 Hydroxyzine HCl 50 mg PO HS 07/15/20 Risperidone [Risperdal] 0.5 mg PO HS 07/15/20 REVIEW OF SYSTEMS CONSTITUTIONAL: Absent: fever, chills, diaphoresis, generalized weakness, malaise, loss of appetite, weight change HEENT: Absent: rhinorrhea, nasal congestion, throat pain, throat swelling, difficulty swallowing, mouth swelling, ear pain, eye pain, visual changes CARDIOVASCULAR: Absent: chest pain, syncope, palpitations, irregular heart rate, lightheadedness, peripheral edema RESPIRATORY: Absent: cough, shortness of breath, dyspnea with exertion, orthopnea, wheezing, stridor, hemoptysis GASTROINTESTINAL: Absent: abdominal pain, abdominal distension, nausea, vomiting, diarrhea, constipation, melena, hematochezia GENITOURINARY: Absent: dysuria, frequency, urgency, hesitancy, hematuria, flank pain, genital pain MUSCULOSKELETAL: Absent: myalgia, arthralgia, joint swelling, back pain, neck pain SKIN: Absent: rash, itching, pallor HEMATOLOGIC/IMMUNOLOGIC: Absent: easy bleeding, easy bruising, lymphadenopathy, frequent infections ENDOCRINE: Absent: unexplained weight gain, unexplained weight loss, heat intolerance, cold intolerance NEUROLOGIC: Absent: headache, focal weakness or paresthesias, dizziness, unsteady gait, seizure, mental status changes, bladder or bowel incontinence PHYSICAL EXAMINATION Vital Signs - 24 hr 09/17/20 09:49 Temperature 99.7 F H Pulse Rate 85 Respiratory 18 Rate Blood Pressure 128/81 O2 Sat by Pulse 97 Oximetry (%) GENERAL: Awake, alert, and fully oriented, in no acute distress. HEAD: Normal with no signs of trauma. EYES: Pupils equal, round and reactive to light, sclera anicteric, conjunctiva clear. LUNGS: Breath sounds equal, clear to auscultation bilaterally. No wheezes, and no crackles. No accessory muscle use. HEART: Regular rate and rhythm, normal S1 and S2 ABDOMEN: Soft, nontender, not distended MUSCULOSKELETAL: Normal range of motion at all joints. No bony deformities or tenderness. No CVA tenderness. UPPER EXTREMITIES: 2+ pulses, warm, well-perfused. No cyanosis. No clubbing. No peripheral edema. LOWER EXTREMITIES: 2+ pulses, warm, well-perfused. No calf tenderness. No peripheral edema. NEUROLOGICAL: Cranial nerves II-XII intact. Normal speech. ASSESSMENT/PLAN: 35 year-old male with a PMH significant for depression and anxiety, appears today for ECT treatment. Cardiac --no cardiac history --Revised Cardiac Risk Index for Pre-Operative Risk: 0 points, 0.4% risk of major cardiac event Pulmonary --no pulmonary history Neurological --no neurological or neurosurgical history; no history of trauma Anesthesia --no reported problems with anesthesia ECT is a low risk procedure. The relative benefits of the planned procedure outweigh the relative risks for this patient at this time. Visit type - Emergency Visit Emergency Visit: No - New Patient This patient is new to me today: Yes Date on this admission: 09/17/20 - Critical Care Critical Care patient: No
== END | disposition home or self-care (01) ==
LOC: FECT 08:36
PROVIDERS: ATTEND Psychiatry & Neurology Psychiatry
PROC: GZB4ZZZ Other Electroconvulsive Therapy (ICD-10-PCS; principal; 2020-09-17)
DX: Z53.8 Procedure and treatment not carried out for other reasons (principal); F33.2 Major depressive disorder, recurrent severe without psychotic features